=== PATIENT | male | born 1940 | race Caucasian/White ===

== ENCOUNTER 2023-03-08 02:34 | Outpatient (CLI) | payer MEDICARE, OTHER, SELFPAY ==
[2023-03-08] MEDS: Barium Sulfate 2% W/V-Creamy Vanilla Smoothie 450 ML BTL 950 ML PO (09:27)
[2023-03-08 09:30] LABS: Abs Immature Grans 0.02 10^3/uL (0.0-0.06); Absolute Basophil Count 0.03 10^3/uL (0.0-0.2); Absolute Eosinophil Count 0.14 10^3/uL (0.0-0.7); Absolute Lymphocyte Count 1.05 10^3/uL (1.2-3.4); Absolute Monocyte Count 0.47 10^3/uL (0.1-0.8); Absolute Neutrophil Count 2.92 10^3/uL (1.2-6.7); Basophils % 0.6; HCT 42.1 % (40.0-50.0); HGB 14.1 g/dL (13.5-17.5); Immature Grans % 0.4; Lymphocytes % 22.7; MCH 32.1 pg (27.0-33.0); MCHC 33.5 % (32.0-36.0); MCV 96 fL (80-95); MPV 10.1 fL (8.0-11.0); Monocytes % 10.2; Neutrophils % 63.1; Platelet Count 151 10^3/uL (130-400); RBC 4.39 10^6/uL (4.36-5.78); RDW 12.5 % (11.8-14.1); RDW-SD 44.9 fL; WBC 4.63 10^3/uL (4.4-10.8)
[2023-03-08 09:53] LABS: ALT 68 U/L (16-63); AST 38 U/L (15-37); Albumin 3.1 g/dL (3.4-5.0); Alkaline Phosphatase 407 U/L (46-116); Anion Gap 8.3 mmol/L (3-11); BUN 6 mg/dL (7-18); Bilirubin, Total 0.7 mg/dL (0.2-1.0); CO2 28.7 mmol/L (21.0-32.0); CREATININE 1.1 mg/dL (0.70-1.30); Chloride 104 mmol/L (98-107); Estimated GFR 67.02 (mL/min/1.73m2); FREE T4 1.74 ng/dL (0.76-1.46); Glucose 269 mg/dL (74-106); Potassium 3.6 mmol/L (3.5-5.1); Sodium 141 mmol/L (136-145)
[2023-03-08] MEDS: Normal Saline - Diluent 50 ML VIAL IJ (11:19)
[2023-03-08] MEDS: Omnipaque 350 MG/ML 500 ML BTL-Imaging package IJ (11:20)
--- NOTE | 2023-03-08 11:25 | DI.CT_ITS ---
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 TECHNIQUE: Imaging Protocol: Axial computed tomography images with coronal and sagittal reformatted images were created and reviewed CONTRAST MATERIAL: Intravenous: Omnipaque 350 Contrast volume:100 ml Oral: yes / MR MRI ABDOMEN WWO from 01/02/2023 FINDINGS: CHEST: Tracheobronchial tree: Patent where visualized. Pulmonary parenchyma: No consolidation or infiltrate. New area of perivascular thickening in the rig ht middle lobe. Scattered small calcified and noncalcified nodules, stable. Pleura: No effusion or pneumothorax. Lymph nodes: Small calcified nodes in the right hilum. Aorta: Thoracic portion non-dilated. Heart: Normal size. Mild coronary artery calcifications. Bones: bones appear osteopenic. Syndesmophyte formation. No lytic or blastic lesions.No compressio n fractures. ABDOMEN: Liver: Enlarged. Nodular contour. Low-density mass near dome of liver 3.5 cm, stable. Multiple ot her tiny foci enhancement throughout the liver. Gallbladder and biliary tract: Status post cholecystectomy. No radiodense calculus or dilation. Pancreas: Markedly dilated pancreatic duct. Calcifications in head of pancreas. Spleen: Unremarkable. Kidneys: Normal size, contour and axis. Few small bilateral stones. Multiple cysts. No obstructive uropathy. No suspicious masses seen. Adrenal glands: No masses seen. Aorta: Abdominal portion non-dilated. Lymph nodes: Stable portacaval node. Multiple tiny mesenteric lymph nodes. Soft tissues: Unremarkable. PELVIS: Bladder: Nearly empty. No gross wall thickening. Bowel: No obstruction or bowel wall thickening. Diverticulosis descending and sigmoid. Large quanti ty of stool. Peritoneal cavity: Small amount of ascites seen around the liver. Multiple soft tissue densities see n in right paracolic gutter, along the cecum and ascending colon. Nodule seen at the inferior border of the liver, adjacent to a renal cyst. Other peritoneal nodules seen in the pelvis, above the leve l of the seminal vesicles as well as adjacent to the sigmoid colon. Bones: Bones appear osteopenic. Degenerative changes. No fracture, lytic or blastic lesion. Reproductive organs: Enlarged prostate IMPRESSION: Chest: New area of perivascular thickening in the right middle lobe potentially metastatic lesion. Other tiny calcified and noncalcified nodules likely granulomas. Abdomen: Innumerable hypervascular liver lesions. Stable appearance of lesion near dome of liver. Multiple peritoneal implant seen along right paracolic gutter is well as in low pelvis. Multiple mildly enlarged mesenteric lymph nodes. RADIATION DOSE DELIVERED: 1,631.32mGy.cm Total DLP DATA REPOSITORY: All CT scans at this facility are submitted to the National Radiology Data Registry (NRDR) Dose Index Registry (DIR) with the [employer] ([employer]). RADIATION OPTIMIZATION: All CT scans at this facility use at least one of these dose optimization te chniques: automated exposure control; mA and/or kV adjustment per patient size (includes targeted exa ms where dose is matched to clinical indication); or iterative reconstruction.
[2023-03-09 10:19] LABS: AFP Tumor Marker 51.5 ng/mL (<8.1)
== END 2023-03-08 02:54 ==
LOC: DI 02:35
PROVIDERS: PCP Family Medicine; Visit Provider Internal Medicine Hematology & Oncology
DX: Z79.899 Other long term (current) drug therapy (principal); C22.0 Liver cell carcinoma
CPT/HCPCS: 74177; 80053; 71260; 82105; 84439; 84443; 85025

== ENCOUNTER 2023-03-16 11:59 | Outpatient (CLI) | payer MEDICARE, OTHER, SELFPAY ==
[2023-03-16 11:57] LABS: Abs Immature Grans 0.02 10^3/uL (0.0-0.06); Absolute Basophil Count 0.01 10^3/uL (0.0-0.2); Absolute Eosinophil Count 0.08 10^3/uL (0.0-0.7); Absolute Lymphocyte Count 1.01 10^3/uL (1.2-3.4); Absolute Monocyte Count 0.37 10^3/uL (0.1-0.8); Absolute Neutrophil Count 3.11 10^3/uL (1.2-6.7); Basophils % 0.2; Eosinophils % 1.7; HCT 39.9 % (40.0-50.0); HGB 13.2 g/dL (13.5-17.5); Immature Grans % 0.4; MCHC 33.1 % (32.0-36.0); MCV 97 fL (80-95); MPV 9.4 fL (8.0-11.0); Neutrophils % 67.7; Platelet Count 168 10^3/uL (130-400); RBC 4.12 10^6/uL (4.36-5.78); RDW 12.6 % (11.8-14.1); RDW-SD 44.8 fL
[2023-03-16 12:22] LABS: ALT 67 U/L (16-63); AST 50 U/L (15-37); Albumin 3.2 g/dL (3.4-5.0); Alkaline Phosphatase 439 U/L (46-116); Anion Gap 4.5 mmol/L (3-11); BUN 6 mg/dL (7-18); Bilirubin, Total 0.6 mg/dL (0.2-1.0); CO2 30.5 mmol/L (21.0-32.0); CREATININE 1.1 mg/dL (0.70-1.30); Calcium 9.5 mg/dL (8.5-10.1); Chloride 102 mmol/L (98-107); Estimated GFR 67.02 (mL/min/1.73m2); FREE T4 1.58 ng/dL (0.76-1.46); Glucose 494 mg/dL (74-106); Potassium 4.2 mmol/L (3.5-5.1); Sodium 137 mmol/L (136-145); TSH 3.23 uIU/mL (0.36-3.74); Total Protein 7.9 g/dL (6.4-8.2)
[2023-03-19 09:18] LABS: AFP Tumor Marker 81.4 ng/mL (<8.1)
== END 2023-03-16 12:00 | disposition home or self-care (01) ==
LOC: LBO 12:00
PROVIDERS: PCP Family Medicine; Visit Provider Internal Medicine Hematology & Oncology
DX: C22.0 Liver cell carcinoma (principal); Z79.899 Other long term (current) drug therapy
CPT/HCPCS: 36415; 80053; 82105; 84439; 84443; 85025

== ENCOUNTER 2023-03-27 20:09 | Emergency (ER) | payer MEDICARE, OTHER, SELFPAY ==
[2023-03-27 20:13] VITALS: BP 138/66; PULSE 68; RESP 16; TEMP 36.9; O2SAT 99
--- NOTE | 2023-03-27 20:15 | ED.GENADUL_ITS ---
Discharge Plan Disposition Patient Disposition: Home Condition: Stable Discharge Details Clinical Impression: Second degree burn of left foot Primary Care Provider: Oleg Rios ED Provider: Ester Wilkerson Home Meds and New Rx's Prescriptions: Continued CINNAMON 1000 MG PO DAILY diltiazem HCl [Cartia XT] 120 MG capsule,extended release 24hr 120 mg PO BID B 12 1,000 mcg DAILY Claritin-D 24 Hour 1 EACH tablet extended release 24 hr 1 ea PO cholecalciferol (vitamin D3) [D3 DOTS] 2,000 UNIT tablet 2,000 unit PO levothyroxine [Synthroid] 137 MCG tablet 137 mcg PO DAILY triamcinolone acetonide 15 GM cream 1 Topical PRN PRN simvastatin [Zocor] 20 MG tablet 20 mg PO DAILY metformin [Glucophage] 1,000 MG tablet 1,000 mg PO BID Centrum Silver 1 EACH tablet 1 tab PO DAILY omega 9-zag-dua-fish oil 1 EACH capsule 1,000 mg PO DAILY chlorpheniramine maleate 4 MG tablet 8 mg PO DAILY pseudoephedrine HCl [Sudafed 12 Hour] 120 MG tablet extended release 120 mg PO DAILY aspirin 325 MG tablet 325 mg PO DAILY Discharge Instructions Instructions: Second-Degree Burn (ED), Acute Wound Care (ED) Additional Instructions: Change your left foot dressing 1-2 times daily. Allow the dressing to come off when you run it under water in the bath or shower and then pat the area dry and reapply bacitracin and a nonadherent dressing. Keep your left foot elevated as much as possible. Take Tylenol as needed and directed for pain. Call your oncology team tomorrow to determine if it is still okay to proceed with your chemotherapy treatment tomorrow. You have been placed on care management's list to arrange for a follow-up appointment with your primary care doctor's office within the next few days for reevaluation. Return immediately to the emergency department if you develop any worsening or new concerning symptoms such as fever, increased pain, redness and swelling. Discharge Data Discharge Physician: Ester Wilkerson Medical Decision Making 82-year-old male with a history of atrial fibrillation with history of cardio frequency ablation with no anticoagulation, type 2 diabetes, bladder and liver c ancer, hypothyroidism presents for left foot burn sustained with hot soup 2 days ago. Patient has been taking care of her foot quite well. He appears comfortable and nontoxic. He has multiple circular garcia to the left dorsal foot which appear a combination of first and second-degree garcia. The majority at this time appears that most blisters have opened except for tiny 1 to 2 mm blisters within the most proximal burn and 1 intact blister noted on the dorsum of the left great foot. Patient is unsure of his tetanus so we will update with a Boostrix. He does have a history of diabetes so he was advised to continue to watch his sugars closely. Will unroofed the blister on the dorsum of his left foot and apply bacitracin and nonadherent dressing. Patient is advised on the importance of proper wound care with bacitracin and nonadherent dressing 1-2 times a day and to keep the foot elevated is much as possible. We will place patient on care management list to arrange for a follow-up appoint with his primary care doctor within the next week for reevaluation. He states he is scheduled to start chemotherapy tomorrow for liver cancer so he was advised to call his oncologist to determine if this is okay to proceed as he has an open wound and would want to prevent any development of a bacterial infection in the setting of immunosuppression. Usual and customary return precautions given prior to discharge. Medical Records Medical records reviewed: Yes I reviewed the patient's medical records. HPI General Mode of arrival: ambulatory . Date/Time Provider Initiated Documentation: 03/27/23 20:15 . Limitations to Documentation: no limitations . Information obtained by: patient . HPI Narrative: Pt is an 82yo M who presents to the ED with a complaint burn to his left foot that occurred 2 days ago while carrying hot soup. Patient states he was carrying the soup in the kitchen when the handle slipped and it poured onto the top of his left foot while wearing a sock. He states he was able to remove it immediately and placed his left foot under cold water. He states since then blisters have formed but the majority of them have popped. He states he has been trying to keep the leg elevated is much as possible and applying Vaseline and dressings. He states he has been wearing sandals which have 2 Velcro straps on top of the area. He states he did travel to [place] yesterday and drove 8 hours in a car but tried to keep it elevated is much as possible. He denies any left calf pain or fever. He is unsure of his tetanus status. Related Data Home Medications Medication Instructions Recorded Confirmed levothyroxine 137 mcg tablet 137 mcg PO DAILY 03/28/13 03/27/23 (Synthroid) metformin 1,000 mg tablet 1,000 mg PO BID 03/28/13 03/27/23 (Glucophage) qlknyjer-sqt-ekddf acid 0.4 1 tab PO DAILY 03/28/13 03/27/23 mg-lycopene 300 mcg-lutein 250 mcg tablet (Centrum Silver) omega 7-nwm-xdk-fish oil 300 1,000 mg PO DAILY 03/28/13 03/27/23 mg-1,000 mg capsule simvastatin 20 mg tablet (Zocor) 20 mg PO DAILY 03/28/13 03/27/23 triamcinolone acetonide 0.1 % 1 topical PRN PRN 03/28/13 03/28/13 topical cream Cinnamon 1000 Mg PO DAILY 04/02/13 aspirin 325 mg tablet 325 mg PO DAILY 06/05/13 03/27/23 chlorpheniramine maleate 4 mg 8 mg PO DAILY 06/05/13 03/27/23 tablet pseudoephedrine HCl 120 mg 120 mg PO DAILY 06/05/13 03/27/23 tablet,extended release (Sudafed 12 Hour) diltiazem HCl 120 mg 120 mg PO BID 03/04/14 03/27/23 capsule,extended release 24 hr (Cartia XT) B 12 1,000 mcg DAILY 10/22/15 cholecalciferol (vitamin D3) 50 2,000 unit PO 10/22/15 mcg (2,000 unit) tablet (D3 DOTS) loratadine-pseudoephedrine ER 10 1 ea PO 10/22/15 mg-240 mg tablet,extended [id number] (Claritin-D 24 Hour) Allergies Allergy/AdvReac Type Severity Reaction Status Date / Time Cephalosporins Allergy Intermediate Skin Rash Unverified 03/27/23 20:44 codeine [Codeine] Allergy Mild Nausea Unverified 11/17/15 08:11 hydromorphone HCl Allergy Mild Unverified 03/27/23 20:44 [From Dilaudid] Sulfa (Sulfonamide Allergy Mild Skin Rash Unverified 03/27/23 20:44 Antibiotics) General Stated Complaint: Burn NAFISA: 4 Review of Systems All systems reviewed & are unremarkable except as noted in HPI and below Constitutional Constitutional: Reports as per HPI, Denies chills and Denies fever(s) Eyes Eyes: Denies blurry vision ENT Ears, Nose, Mouth, and Throat: Denies dizziness, Denies sore throat and Denies throat swelling Cardiovascular Cardiovascular: Denies chest pain and Denies dyspnea Respiratory Respiratory: Denies cough and Denies dyspnea Gastrointestinal Gastrointestinal: Denies abdominal pain, Denies diarrhea and Denies vomiting Genitourinary Genitourinary: Denies hematuria and Denies dysuria Musculoskeletal Musculoskeletal: Denies back pain and Denies numbness Integumentary/Breasts Skin/Breast: Denies lesions and Denies rash Comments: burn left foot Neurologic Neurologic: Denies dizziness, Denies localized weakness and Denies numbness Allergic/Immunologic Allergic/Immunologic: Denies throat swelling PFSH All Active Problems (Updated 03/27/23 @ 21:43 by Ester Wilkerson DO) Second degree burn of left foot (Acute) Medical History (Updated 03/27/23 @ 21:43 by Ester Wilkerson DO) Atrial fibrillation Bladder cancer Hypothyroidism Kidney stones Liver cancer Pancreatitis s/p cholecystitis/cholecystectomy with stone in pancreatic duct Type 2 diabetes mellitus Surgical History (Updated 03/27/23 @ 20:52 by Ester Wilkerson DO) History of appendectomy History of bilateral inguinal hernia repair History of bladder surgery bladder ablation History of cardiac radiofrequency ablation for atrial fibrillation History of carpal tunnel release History of left knee replacement History of repair of rotator cuff Bilateral History of tonsillectomy Social History Smoking/Tobacco Use Status: Former Tobacco Use Smoking risk assessment performed?: Yes Alcohol Intake: never Drug use: Never Do you feel safe at home: Yes Do you feel safe in your relationship?: Yes Exam Const General: cooperative and no acute distress Orientation: alert, awake and oriented x3 HENMT Head: normal to inspection Mouth: oral mucosae normal Eyes General: appearance normal, both eyes and all related structures Neck Neck: normal visual inspection Resp Effort & Inspection: normal respiratory effort and able to speak in complete sentences Cardio Rate: regular rate Skin General skin exam: no rashes or lesions noted Neuro General: patient alert, patient awake and patient oriented x3 Motor: muscle tone normal throughout Extrem General: full ROM Ankle/foot/toe images: 1. Several circular areas of erythema, ranging in intensity located on the dorsum of the left foot. There are small 2 to 3 mm blisters noted on the most proximal burn but the majority of this area is flat without blisters. The center circular area is more erythematous with no blisters. There is a 4 x 4 millimeter intact blister noted on the dorsum of the base of the left great toe. There is minimal serous discharge noted from the wounds. There is no patch drainage. There is no significant cellulitis or fluctuance. Psych Appearance: grossly normal Affect: normal affect Procedures Other Description: Vaseline over top of the left foot was removed gently and the area was cleaned with medical soap. The blister on the dorsum of the base of the left great toe was opened with an 11 blade and removed with scissors. The entire left foot was covered with bacitracin and a nonadherent dressing.
--- NOTE | 2023-03-29 08:29 | NUR.NOTE ---
Nursing Note: PCP: Dr. Rios, [facility] [phone]. Referral and visit information sent to PCP for follow up.
--- NOTE | 2023-03-29 08:34 | NUR.NOTE ---
Nursing Note: [facility] fax [phone]
--- NOTE | 2023-03-29 18:18 | NUR.NOTE ---
Nursing Note: pt called to request a brace/boot for his burned foot. pt was informed if he felt he needed something he was not provided with at his prior visit, he could revisit the ED, [facility], or his PCP to request it
== END 2023-03-27 22:30 | disposition home or self-care (01) ==
PROVIDERS: Emergency Provider Physician Assistant; PCP Family Medicine
DX: T25.222A Burn of second degree of left foot, initial encounter; X10.1XXA Contact with hot food, initial encounter; Y92.000 Kitchen of unspecified non-institutional (private) residence as the place of occurrence of the external cause; E11.9 Type 2 diabetes mellitus without complications; C67.9 Malignant neoplasm of bladder, unspecified; C22.9 Malignant neoplasm of liver, not specified as primary or secondary
CPT/HCPCS: 90471; 99284; 99283

== ENCOUNTER 2023-03-28 12:30 | Outpatient (CLI) | payer MEDICARE, OTHER, SELFPAY ==
[2023-03-28 12:00] LABS: Abs Immature Grans 0.01 10^3/uL (0.0-0.06); Absolute Basophil Count 0.02 10^3/uL (0.0-0.2); Absolute Eosinophil Count 0.07 10^3/uL (0.0-0.7); Absolute Monocyte Count 0.22 10^3/uL (0.1-0.8); Absolute Neutrophil Count 1.87 10^3/uL (1.2-6.7); Basophils % 0.6; Eosinophils % 2.3; HCT 37.5 % (40.0-50.0); HGB 12.4 g/dL (13.5-17.5); Immature Grans % 0.3; Lymphocytes % 29.1; MCH 31.9 pg (27.0-33.0); MCHC 33.1 % (32.0-36.0); MCV 96 fL (80-95); MPV 10.2 fL (8.0-11.0); Monocytes % 7.1; Neutrophils % 60.6; Platelet Count 128 10^3/uL (130-400); RBC 3.89 10^6/uL (4.36-5.78); RDW 12.9 % (11.8-14.1); RDW-SD 45.7 fL; WBC 3.09 10^3/uL (4.4-10.8)
[2023-03-28 12:26] LABS: ALT 63 U/L (16-63); AST 69 U/L (15-37); Albumin 2.8 g/dL (3.4-5.0); Alkaline Phosphatase 328 U/L (46-116); Anion Gap 7.5 mmol/L (3-11); BUN 8 mg/dL (7-18); Bilirubin, Total 0.7 mg/dL (0.2-1.0); CO2 27.5 mmol/L (21.0-32.0); CREATININE 0.9 mg/dL (0.70-1.30); Calcium 8.6 mg/dL (8.5-10.1); Chloride 104 mmol/L (98-107); Estimated GFR 85.27 (mL/min/1.73m2); Glucose 306 mg/dL (74-106); Potassium 4.1 mmol/L (3.5-5.1); Sodium 139 mmol/L (136-145); TSH 1.62 uIU/mL (0.36-3.74)
[2023-03-30 08:16] LABS: AFP Tumor Marker 89.2 ng/mL (<8.1)
== END 2023-03-28 12:31 | disposition home or self-care (01) ==
LOC: LBO 12:30
PROVIDERS: PCP Family Medicine; Visit Provider Internal Medicine Hematology & Oncology
DX: C22.0 Liver cell carcinoma (principal); Z79.899 Other long term (current) drug therapy
CPT/HCPCS: 36415; 80053; 82105; 84439; 84443; 85025

== ENCOUNTER 2023-03-29 18:39 | Emergency (ER) | payer MEDICARE, OTHER, SELFPAY ==
[2023-03-29 18:46] VITALS: BP 137/71; PULSE 69; RESP 20; TEMP 36.2; O2SAT 100
--- NOTE | 2023-03-29 21:48 | ED.GENADUL_ITS ---
Discharge Plan Discharge Details Chief Complaint: Orthopedic Primary Care Provider: Oleg Rios ED Provider: Lanie Chu Home Meds and New Rx's Prescriptions: No Action CINNAMON 1000 MG PO DAILY diltiazem HCl [Cartia XT] 120 MG capsule,extended release 24hr 120 mg PO BID B 12 1,000 mcg DAILY Claritin-D 24 Hour 1 EACH tablet extended release 24 hr 1 ea PO cholecalciferol (vitamin D3) [D3 DOTS] 2,000 UNIT tablet 2,000 unit PO levothyroxine [Synthroid] 137 MCG tablet 137 mcg PO DAILY triamcinolone acetonide 15 GM cream 1 Topical PRN PRN simvastatin [Zocor] 20 MG tablet 20 mg PO DAILY metformin [Glucophage] 1,000 MG tablet 1,000 mg PO BID Centrum Silver 1 EACH tablet 1 tab PO DAILY omega 0-lmk-jps-fish oil 1 EACH capsule 1,000 mg PO DAILY chlorpheniramine maleate 4 MG tablet 8 mg PO DAILY pseudoephedrine HCl [Sudafed 12 Hour] 120 MG tablet extended release 120 mg PO DAILY aspirin 325 MG tablet 325 mg PO DAILY Medical Decision Making Patient presents for postoperative shoe in the presence of a recent partial- thickness burn to his toe with dressing changes prior to arrival, placed an extra-large postoperative boot, ambulatory with steady gait No signs or symptoms consistent with infection Return precautions discussed and patient expressed understanding HPI General Date/Time Provider Initiated Documentation: 03/29/23 18:41 . HPI Narrative: This 82-year-old gentleman with history of type 2 diabetes, pancreatitis, hypothyroidism, bladder cancer atrial fibrillation presents post burn partial- thickness burn which was evaluated on 03/27/2023. He had a dressing change today by his PCP at approximately 2:00 but is having difficulties walking as his footwear is not accommodating the dressing. He is requesting only a postope rative shoe. He denies any pain complaints, fever, chills and was told that the burn site looked great by his PCP just prior to his assessment in the emergency department. Related Data Home Medications Medication Instructions Recorded Confirmed levothyroxine 137 mcg tablet 137 mcg PO DAILY 03/28/13 03/27/23 (Synthroid) metformin 1,000 mg tablet 1,000 mg PO BID 03/28/13 03/27/23 (Glucophage) bgaagiok-qlc-xwnkn acid 0.4 1 tab PO DAILY 03/28/13 03/27/23 mg-lycopene 300 mcg-lutein 250 mcg tablet (Centrum Silver) omega 9-emb-uuf-fish oil 300 1,000 mg PO DAILY 03/28/13 03/27/23 mg-1,000 mg capsule simvastatin 20 mg tablet (Zocor) 20 mg PO DAILY 03/28/13 03/27/23 triamcinolone acetonide 0.1 % 1 topical PRN PRN 03/28/13 03/28/13 topical cream Cinnamon 1000 Mg PO DAILY 04/02/13 aspirin 325 mg tablet 325 mg PO DAILY 06/05/13 03/27/23 chlorpheniramine maleate 4 mg 8 mg PO DAILY 06/05/13 03/27/23 tablet pseudoephedrine HCl 120 mg 120 mg PO DAILY 06/05/13 03/27/23 tablet,extended release (Sudafed 12 Hour) diltiazem HCl 120 mg 120 mg PO BID 03/04/14 03/27/23 capsule,extended release 24 hr (Cartia XT) B 12 1,000 mcg DAILY 10/22/15 cholecalciferol (vitamin D3) 50 2,000 unit PO 10/22/15 mcg (2,000 unit) tablet (D3 DOTS) loratadine-pseudoephedrine ER 10 1 ea PO 10/22/15 mg-240 mg tablet,extended [id number] (Claritin-D 24 Hour) Allergies Allergy/AdvReac Type Severity Reaction Status Date / Time Cephalosporins Allergy Intermediate Skin Rash Unverified 03/27/23 20:44 codeine [Codeine] Allergy Mild Nausea Unverified 11/17/15 08:11 hydromorphone HCl Allergy Mild Unverified 03/27/23 20:44 [From Dilaudid] Sulfa (Sulfonamide Allergy Mild Skin Rash Unverified 03/27/23 20:44 Antibiotics) General Stated Complaint: Orthopedic NAFISA: 4 PFSH All Active Problems (Updated 03/27/23 @ 21:43 by Ester Wilkerson DO) Second degree burn of left foot (Acute) Medical History (Updated 03/27/23 @ 21:43 by Ester Wilkerson DO) Atrial fibrillation Bladder cancer Hypothyroidism Kidney stones Liver cancer Pancreatitis s/p cholecystitis/cholecystectomy with stone in pancreatic duct Type 2 diabetes mellitus Surgical History (Updated 03/27/23 @ 20:52 by Ester Wilkerson DO) History of appendectomy History of bilateral inguinal hernia repair History of bladder surgery bladder ablation History of cardiac radiofrequency ablation for atrial fibrillation History of carpal tunnel release History of left knee replacement History of repair of rotator cuff Bilateral History of tonsillectomy Social History Smoking/Tobacco Use Status: Former Tobacco Use Smoking risk assessment performed?: Yes Alcohol Intake: never Drug use: Never Do you feel safe at home: Yes Do you feel safe in your relationship?: Yes Exam Narrative Exam Narrative: Left foot with sock in place no significant drainage, neurologically intact Course Vital Signs Vital signs: Vital Signs Temperature 36.2 C L 03/29/23 18:46 Pulse 69 03/29/23 18:46 Respiratory Rate 20 03/29/23 18:46 Blood Pressure 137/71 03/29/23 18:46 Pulse Oximetry 100 03/29/23 18:46 Temperature 36.2 C L 03/29/23 18:46 Temperature Source Tympanic 03/29/23 18:46 Pulse 69 03/29/23 18:46 Respiratory Rate 20 03/29/23 18:46 Respiratory Effort Normal 03/29/23 18:49 Blood Pressure 137/71 03/29/23 18:46 Blood Pressure Position Sitting 03/29/23 18:46 Pulse Oximetry 100 03/29/23 18:46 Oxygen Delivery Method Room Air 03/29/23 18:46 Oxygen Flow Rate 0 03/29/23 18:46
== END 2023-03-29 19:05 | disposition home or self-care (01) ==
PROVIDERS: Emergency Provider Physician Assistant; PCP Family Medicine
DX: T25.222D Burn of second degree of left foot, subsequent encounter (principal); E11.9 Type 2 diabetes mellitus without complications; X58.XXXD Exposure to other specified factors, subsequent encounter
CPT/HCPCS: 99281; 99282

== ENCOUNTER 2023-03-31 21:10 | Emergency (ER) | payer MEDICARE, OTHER, SELFPAY ==
[2023-03-31 21:15] VITALS: BP 143/72; PULSE 65; RESP 16; TEMP 36.5; O2SAT 99
--- NOTE | 2023-03-31 21:57 | W.ED.GENAD ---
Discharge Plan Disposition Patient Disposition: Home Condition: Stable Discharge Details Clinical Impression: Cellulitis of left foot, Second degree burn of left foot Primary Care Provider: Oleg Rios ED Provider: Romelia Queen Home Meds and New Rx's Prescriptions: New clindamycin HCl 150 mg capsule 450 mg PO TID 7 Days Qty: 63 0RF No Action CINNAMON 1000 MG PO DAILY diltiazem HCl [Cartia XT] 120 MG capsule,extended release 24hr 120 mg PO BID B 12 1,000 mcg DAILY Claritin-D 24 Hour 1 EACH tablet extended release 24 hr 1 ea PO cholecalciferol (vitamin D3) [D3 DOTS] 2,000 UNIT tablet 2,000 unit PO levothyroxine [Synthroid] 137 MCG tablet 137 mcg PO DAILY triamcinolone acetonide 15 GM cream 1 Topical PRN PRN simvastatin [Zocor] 20 MG tablet 20 mg PO DAILY metformin [Glucophage] 1,000 MG tablet 1,000 mg PO BID Centrum Silver 1 EACH tablet 1 tab PO DAILY omega 4-sdd-zyz-fish oil 1 EACH capsule 1,000 mg PO DAILY chlorpheniramine maleate 4 MG tablet 8 mg PO DAILY pseudoephedrine HCl [Sudafed 12 Hour] 120 MG tablet extended release 120 mg PO DAILY aspirin 325 MG tablet 325 mg PO DAILY Discharge Instructions Instructions: Cellulitis (ED), Second-Degree Burn (ED) Additional Instructions: Please take the antibiotic with yogurt or probiotic as directed 3 times a day. Please follow-up with the burn clinic within the next week. Take the pain medications as directed with food. No driving or operating heavy machinery while taking medications. [facility] Critical [facility] 5.0(2)?? Emergency care service [place], [place] ? Opens 8?AM Mon [facility] [phone]: [place] [address] These are 2 referrals for the burn center at [facility] and also [facility] wound clinic. Please call to make an appointment. Follow up with primary care provider in 3-5 days. Return to ED sooner if any worsening or concerns. Increase oral fluids. Referrals: Oleg Rios [Primary Care Provider] - 3 days Medical Decision Making Patient presents for third visit for burn to his left foot which occurred after spilling some hot soup onto it. He was seen on the ninth initially. He presents tonight with some increased pain, increased redness and swelling which has began to start up his left leg. He has been applying topical bacitracin keeping it covered with a nonadherent bandage and wearing a postop shoe. He denies any fever chills. Does appear to be possibly cellulitic or beginning to have an infection, questionable red streaks going up the anterior brennan and leg is warm. Will place patient on oral clindamycin as he is allergic to cephalosporins and sulfa and referred to the burn center. Instructed on home care and follow-up with PCP and the burn center verbalizes understanding. This text was generated using [employer]ko[employer] system, please disregard any oddities of phrase or misspellings. Medical Records Medical records reviewed: Yes I reviewed the patient's medical records. HPI General Mode of arrival: ambulatory. Date/Time Provider Initiated Documentation: 03/31/23 21:12. Limitations to Documentation: no limitations. Information obtained by: patient, RN notes reviewed and old records reviewed. HPI Narrative: Patient presents for third visit for burn to his left foot which occurred after spilling some hot soup onto it. He was seen on the ninth initially. He presents tonight with some increased pain, increased redness and swelling which has began to start up his left leg. He has been applying topical bacitracin keeping it covered with a nonadherent bandage and wearing a postop shoe. He denies any fever chills. Related Data Home Medications Medication Instructions Recorded Confirmed levothyroxine 137 mcg tablet 137 mcg PO DAILY 03/28/13 03/31/23 (Synthroid) metformin 1,000 mg tablet 1,000 mg PO BID 03/28/13 03/31/23 (Glucophage) sknklyhs-ygb-chzbe acid 0.4 1 tab PO DAILY 03/28/13 03/31/23 mg-lycopene 300 mcg-lutein 250 mcg tablet (Centrum Silver) omega 9-och-hlw-fish oil 300 1,000 mg PO DAILY 03/28/13 03/31/23 mg-1,000 mg capsule simvastatin 20 mg tablet (Zocor) 20 mg PO DAILY 03/28/13 03/27/23 triamcinolone acetonide 0.1 % 1 topical PRN PRN 03/28/13 03/28/13 topical cream Cinnamon 1000 Mg PO DAILY 04/02/13 aspirin 325 mg tablet 325 mg PO DAILY 06/05/13 03/31/23 chlorpheniramine maleate 4 mg 8 mg PO DAILY 06/05/13 03/31/23 tablet pseudoephedrine HCl 120 mg 120 mg PO DAILY 06/05/13 03/31/23 tablet,extended release (Sudafed 12 Hour) diltiazem HCl 120 mg 120 mg PO BID 03/04/14 03/31/23 capsule,extended release 24 hr (Cartia XT) B 12 1,000 mcg DAILY 10/22/15 03/31/23 cholecalciferol (vitamin D3) 50 2,000 unit PO 10/22/15 mcg (2,000 unit) tablet (D3 DOTS) loratadine-pseudoephedrine ER 10 1 ea PO 10/22/15 mg-240 mg tablet,extended [id number] (Claritin-D 24 Hour) clindamycin HCl 150 mg capsule 450 mg PO TID 7 days #63 [facility] 03/31/23 Previous Rx's Medication Instructions Recorded clindamycin HCl 150 mg capsule 450 mg PO TID 7 days #63 caps 03/31/23 Allergies Allergy/AdvReac Type Severity Reaction Status Date / Time Cephalosporins Allergy Intermediate Skin Rash Unverified 03/31/23 21:21 codeine [Codeine] Allergy Mild Nausea Unverified 03/31/23 21:21 hydromorphone HCl Allergy Mild Unverified 03/31/23 21:21 [From Dilaudid] Sulfa (Sulfonamide Allergy Mild Skin Rash Unverified 03/31/23 21:21 Antibiotics) General Stated Complaint: Burn NAFISA: 3 Review of Systems All systems reviewed & are unremarkable except as noted in HPI and below Integumentary/Breasts Skin/Breast: Reports as per HPI, Reports erythema, Reports skin pain, Reports skin swelling and Reports wounds PFSH All Active Problems (Updated 03/31/23 @ 22:27 by Romelia Queen NP) Second degree burn of left foot (Acute) Cellulitis of left foot (Acute) Medical History Atrial fibrillation Bladder cancer Hypothyroidism Kidney stones Liver cancer Pancreatitis s/p cholecystitis/cholecystectomy with stone in pancreatic duct Type 2 diabetes mellitus Surgical History History of appendectomy History of bilateral inguinal hernia repair History of bladder surgery bladder ablation History of cardiac radiofrequency ablation for atrial fibrillation History of carpal tunnel release History of left knee replacement History of repair of rotator cuff Bilateral History of tonsillectomy Social History Smoking/Tobacco Use Status: Former Tobacco Use Smoking risk assessment performed?: Yes Alcohol Intake: never Drug use: Never Do you feel safe at home: Yes Do you feel safe in your relationship?: Yes Exam Extrem Upper/lower leg/hip images: 1. Questionable red streak Ankle/foot/toe images: 1. Erythema 2. 2nd degree burn Course Vital Signs Vital signs: Vital Signs Temperature 36.5 C 03/31/23 21:15 Pulse 65 03/31/23 21:15 Respiratory Rate 16 03/31/23 21:15 Blood Pressure 143/72 H 03/31/23 21:15 Pulse Oximetry 99 03/31/23 21:15 Temperature 36.5 C 03/31/23 21:15 Temperature Source Temporal Artery Scan 03/31/23 21:15 Pulse 65 03/31/23 21:15 Respiratory Rate 16 03/31/23 21:15 Respiratory Effort Normal 03/31/23 21:15 Blood Pressure 143/72 H 03/31/23 21:15 Blood Pressure Position Sitting 03/31/23 21:15 Pulse Oximetry 99 03/31/23 21:15 Oxygen Delivery Method Room Air 03/31/23 21:15 Oxygen Flow Rate 0 03/31/23 21:15 Pain Level 9 03/31/23 21:15
[2023-03-31] MEDS: Clindamycin 150 MG CAP 450 MG PO (22:28)
[2023-03-31] MEDS: Clindamycin 150 MG CAP, 12 CAPS/BTL 450 MG PO (22:28)
[2023-03-31] MEDS: oxyCODONE 5 MG TAB PO (22:29)
== END 2023-03-31 22:43 | disposition home or self-care (01) ==
PROVIDERS: Emergency Provider Registered Nurse Emergency; PCP Family Medicine
DX: T25.222D Burn of second degree of left foot, subsequent encounter (principal); L03.116 Cellulitis of left lower limb; T79.8XXD Other early complications of trauma, subsequent encounter; X12.XXXD Contact with other hot fluids, subsequent encounter
CPT/HCPCS: 99283; 99284

== ENCOUNTER 2023-04-20 08:07 | Outpatient (CLI) | payer MEDICARE, OTHER, SELFPAY ==
[2023-04-20 08:06] LABS: Abs Immature Grans 0.01 10^3/uL (0.0-0.06); Absolute Basophil Count 0.03 10^3/uL (0.0-0.2); Absolute Eosinophil Count 0.46 10^3/uL (0.0-0.7); Absolute Lymphocyte Count 1.09 10^3/uL (1.2-3.4); Absolute Monocyte Count 0.34 10^3/uL (0.1-0.8); Absolute Neutrophil Count 2.39 10^3/uL (1.2-6.7); Basophils % 0.7; Eosinophils % 10.6; HCT 38.9 % (40.0-50.0); HGB 12.7 g/dL (13.5-17.5); Immature Grans % 0.2; Lymphocytes % 25.2; MCH 31.3 pg (27.0-33.0); MCHC 32.6 % (32.0-36.0); MCV 96 fL (80-95); MPV 9.6 fL (8.0-11.0); Monocytes % 7.9; Neutrophils % 55.4; Platelet Count 141 10^3/uL (130-400); RBC 4.06 10^6/uL (4.36-5.78); RDW 13.5 % (11.8-14.1); RDW-SD 48.3 fL; WBC 4.32 10^3/uL (4.4-10.8)
[2023-04-20 09:06] LABS: ALT 101 U/L (16-63); AST 102 U/L (15-37); Albumin 2.8 g/dL (3.4-5.0); Alkaline Phosphatase 305 U/L (46-116); Anion Gap 7.4 mmol/L (3-11); BUN 9 mg/dL (7-18); Bilirubin, Total 0.8 mg/dL (0.2-1.0); CO2 26.6 mmol/L (21.0-32.0); CREATININE 0.9 mg/dL (0.70-1.30); Chloride 104 mmol/L (98-107); Estimated GFR 85.27 (mL/min/1.73m2); Glucose 186 mg/dL (74-106); Potassium 4.3 mmol/L (3.5-5.1); Sodium 138 mmol/L (136-145); TSH 2.58 uIU/mL (0.36-3.74); Total Protein 7.3 g/dL (6.4-8.2)
[2023-04-23 10:44] LABS: AFP Tumor Marker 107.5 ng/mL (<8.1)
== END 2023-04-20 08:08 | disposition home or self-care (01) ==
LOC: LBO 08:07
PROVIDERS: PCP Family Medicine; Visit Provider Internal Medicine Hematology & Oncology
DX: C22.0 Liver cell carcinoma (principal); Z79.899 Other long term (current) drug therapy
CPT/HCPCS: 36415; 80053; 82105; 84439; 84443; 85025

== ENCOUNTER 2023-04-27 02:08 | Outpatient (CLI) | payer MEDICARE, OTHER, SELFPAY ==
[2023-04-27 08:33] LABS: Abs Immature Grans 0.02 10^3/uL (0.0-0.06); Absolute Basophil Count 0.04 10^3/uL (0.0-0.2); Absolute Eosinophil Count 0.36 10^3/uL (0.0-0.7); Absolute Lymphocyte Count 1.33 10^3/uL (1.2-3.4); Absolute Monocyte Count 0.44 10^3/uL (0.1-0.8); Absolute Neutrophil Count 2.25 10^3/uL (1.2-6.7); Basophils % 0.9; Eosinophils % 8.1; HCT 38.6 % (40.0-50.0); HGB 13.1 g/dL (13.5-17.5); Immature Grans % 0.5; MCH 32.3 pg (27.0-33.0); MCHC 33.9 % (32.0-36.0); MCV 95 fL (80-95); MPV 9.9 fL (8.0-11.0); Monocytes % 9.9; Neutrophils % 50.6; Platelet Count 169 10^3/uL (130-400); RBC 4.06 10^6/uL (4.36-5.78); RDW 13.9 % (11.8-14.1); RDW-SD 49.1 fL; WBC 4.44 10^3/uL (4.4-10.8)
[2023-04-27 09:03] LABS: ALT 194 U/L (16-63); AST 182 U/L (15-37); Albumin 2.9 g/dL (3.4-5.0); Alkaline Phosphatase 363 U/L (46-116); BUN 8 mg/dL (7-18); CREATININE 0.9 mg/dL (0.70-1.30); Chloride 104 mmol/L (98-107); Estimated GFR 85.27 (mL/min/1.73m2); FREE T4 1.77 ng/dL (0.76-1.46); Glucose 140 mg/dL (74-106); Sodium 138 mmol/L (136-145); Total Protein 7.6 g/dL (6.4-8.2)
[2023-04-30 09:27] LABS: AFP Tumor Marker 102.9 ng/mL (<8.1)
== END 2023-04-27 02:09 | disposition home or self-care (01) ==
LOC: LBO 02:08
PROVIDERS: PCP Family Medicine; Visit Provider Internal Medicine Hematology & Oncology
DX: C22.0 Liver cell carcinoma (principal); Z79.899 Other long term (current) drug therapy
CPT/HCPCS: 36415; 80053; 82105; 84439; 84443; 85025

== ENCOUNTER 2023-04-30 04:53 | Outpatient (CLI) | payer MEDICARE, OTHER, SELFPAY ==
[2023-04-30 08:32] LABS: Abs Immature Grans 0.02 10^3/uL (0.0-0.06); Absolute Basophil Count 0.03 10^3/uL (0.0-0.2); Absolute Eosinophil Count 0.26 10^3/uL (0.0-0.7); Absolute Lymphocyte Count 1.13 10^3/uL (1.2-3.4); Absolute Monocyte Count 0.42 10^3/uL (0.1-0.8); Absolute Neutrophil Count 2.18 10^3/uL (1.2-6.7); Basophils % 0.7; Eosinophils % 6.4; HCT 39.5 % (40.0-50.0); HGB 13.1 g/dL (13.5-17.5); Immature Grans % 0.5; MCH 32.1 pg (27.0-33.0); MCHC 33.2 % (32.0-36.0); MCV 97 fL (80-95); MPV 9.5 fL (8.0-11.0); Monocytes % 10.4; Platelet Count 172 10^3/uL (130-400); RBC 4.08 10^6/uL (4.36-5.78); RDW 14.3 % (11.8-14.1); WBC 4.04 10^3/uL (4.4-10.8)
[2023-04-30 09:12] LABS: ALT 201 U/L (16-63); AST 172 U/L (15-37); Albumin 2.9 g/dL (3.4-5.0); Alkaline Phosphatase 354 U/L (46-116); Anion Gap 7.7 mmol/L (3-11); BUN 8 mg/dL (7-18); CO2 27.3 mmol/L (21.0-32.0); CREATININE 0.9 mg/dL (0.70-1.30); Chloride 104 mmol/L (98-107); Estimated GFR 85.27 (mL/min/1.73m2); FREE T4 1.89 ng/dL (0.76-1.46); Glucose 187 mg/dL (74-106); Potassium 4.2 mmol/L (3.5-5.1); Sodium 139 mmol/L (136-145); Total Protein 7.5 g/dL (6.4-8.2)
[2023-05-02 09:45] LABS: AFP Tumor Marker 105.8 ng/mL (<8.1)
== END 2023-04-30 04:54 | disposition home or self-care (01) ==
LOC: LBO 04:53
PROVIDERS: PCP Family Medicine; Visit Provider Internal Medicine Hematology & Oncology
DX: C20 Malignant neoplasm of rectum (principal); Z79.899 Other long term (current) drug therapy
CPT/HCPCS: 36415; 80053; 82105; 84439; 84443; 85025

== ENCOUNTER 2023-05-02 10:04 | Outpatient (REF) | payer MEDICARE, OTHER, SELFPAY ==
[2023-05-02 10:34] LABS: Bilirubin Small (Negative); Blood Large (Negative); Clarity Cloudy (Clear); Glucose Negative (Negative); Ketones 15 mg/dL (Negative); Leukocyte Esterase Negative (Negative); Nitrite Negative (Negative); Specific Gravity 1.025 (1.005-1.025); pH 5.5 (5-8)
[2023-05-02 10:44] LABS: WBC >50 HPF (0-5)
[2023-05-02 10:45] LABS: C & S Indicated? Yes
== END 2023-05-02 10:05 | disposition home or self-care (01) ==
LOC: LBN 10:04
PROVIDERS: PCP Family Medicine; Visit Provider Urology
DX: R31.0 Gross hematuria (principal); R32 Unspecified urinary incontinence; R82.998 Other abnormal findings in urine
CPT/HCPCS: 81003; 81015; 87086

== ENCOUNTER 2023-05-04 02:53 | Outpatient (CLI) | payer MEDICARE, OTHER, SELFPAY ==
[2023-05-04 08:06] LABS: Abs Immature Grans 0.04 10^3/uL (0.0-0.06); Absolute Basophil Count 0.03 10^3/uL (0.0-0.2); Absolute Eosinophil Count 0.21 10^3/uL (0.0-0.7); Absolute Lymphocyte Count 1.15 10^3/uL (1.2-3.4); Absolute Monocyte Count 0.43 10^3/uL (0.1-0.8); Absolute Neutrophil Count 2.71 10^3/uL (1.2-6.7); Basophils % 0.7; Eosinophils % 4.6; HCT 40.1 % (40.0-50.0); HGB 13.4 g/dL (13.5-17.5); Immature Grans % 0.9; Lymphocytes % 25.2; MCH 32.1 pg (27.0-33.0); MCHC 33.4 % (32.0-36.0); MCV 96 fL (80-95); MPV 9.2 fL (8.0-11.0); Monocytes % 9.4; Neutrophils % 59.2; Platelet Count 178 10^3/uL (130-400); RBC 4.18 10^6/uL (4.36-5.78); RDW 14.5 % (11.8-14.1); RDW-SD 51.1 fL; WBC 4.57 10^3/uL (4.4-10.8)
[2023-05-04 08:30] LABS: ALT 206 U/L (16-63); AST 165 U/L (15-37); Albumin 2.9 g/dL (3.4-5.0); Alkaline Phosphatase 352 U/L (46-116); BUN 11 mg/dL (7-18); Bilirubin, Total 1.1 mg/dL (0.2-1.0); CREATININE 0.9 mg/dL (0.70-1.30); Calcium 8.9 mg/dL (8.5-10.1); Chloride 106 mmol/L (98-107); Estimated GFR 85.27 (mL/min/1.73m2); FREE T4 1.94 ng/dL (0.76-1.46); Glucose 187 mg/dL (74-106); Potassium 4.2 mmol/L (3.5-5.1); Sodium 142 mmol/L (136-145); TSH 1.93 uIU/mL (0.36-3.74); Total Protein 7.2 g/dL (6.4-8.2)
[2023-05-07 10:08] LABS: AFP Tumor Marker 84.2 ng/mL (<8.1)
== END 2023-05-04 02:54 | disposition home or self-care (01) ==
LOC: LBO 02:53
PROVIDERS: PCP Family Medicine; Visit Provider Internal Medicine Hematology & Oncology
DX: C22.0 Liver cell carcinoma (principal); Z79.899 Other long term (current) drug therapy
CPT/HCPCS: 36415; 80053; 82105; 84439; 84443; 85025

== ENCOUNTER 2023-05-07 04:24 | Outpatient (CLI) | payer MEDICARE, OTHER, SELFPAY ==
[2023-05-07 07:55] LABS: Abs Immature Grans 0.03 10^3/uL (0.0-0.06); Absolute Basophil Count 0.02 10^3/uL (0.0-0.2); Absolute Eosinophil Count 0.09 10^3/uL (0.0-0.7); Absolute Lymphocyte Count 1.38 10^3/uL (1.2-3.4); Absolute Neutrophil Count 4.77 10^3/uL (1.2-6.7); Basophils % 0.3; Eosinophils % 1.3; HCT 37.8 % (40.0-50.0); HGB 12.8 g/dL (13.5-17.5); Immature Grans % 0.4; MCH 32.5 pg (27.0-33.0); MCHC 33.9 % (32.0-36.0); MCV 96 fL (80-95); MPV 9.2 fL (8.0-11.0); Monocytes % 8.7; Neutrophils % 69.3; Platelet Count 174 10^3/uL (130-400); RBC 3.94 10^6/uL (4.36-5.78); RDW 14.6 % (11.8-14.1); RDW-SD 51.8 fL; WBC 6.89 10^3/uL (4.4-10.8)
[2023-05-07 09:07] LABS: ALT 231 U/L (16-63); AST 155 U/L (15-37); Alkaline Phosphatase 356 U/L (46-116); Anion Gap 8.6 mmol/L (3-11); BUN 19 mg/dL (7-18); Bilirubin, Total 0.6 mg/dL (0.2-1.0); CO2 27.4 mmol/L (21.0-32.0); CREATININE 0.9 mg/dL (0.70-1.30); Calcium 8.9 mg/dL (8.5-10.1); Chloride 103 mmol/L (98-107); Estimated GFR 85.27 (mL/min/1.73m2); FREE T4 1.63 ng/dL (0.76-1.46); Glucose 142 mg/dL (74-106); Potassium 3.7 mmol/L (3.5-5.1); Sodium 139 mmol/L (136-145); TSH 1.68 uIU/mL (0.36-3.74); Total Protein 7.6 g/dL (6.4-8.2)
[2023-05-09 11:08] LABS: AFP Tumor Marker 79.6 ng/mL (<8.1)
== END 2023-05-07 04:25 | disposition home or self-care (01) ==
LOC: LBO 04:24
PROVIDERS: PCP Family Medicine; Visit Provider Internal Medicine Hematology & Oncology
DX: C22.0 Liver cell carcinoma (principal); Z79.899 Other long term (current) drug therapy
CPT/HCPCS: 36415; 80053; 82105; 84439; 84443; 85025

== ENCOUNTER 2023-05-09 01:43 | Outpatient (CLI) | payer MEDICARE, OTHER, SELFPAY ==
--- NOTE | 2023-05-09 | DI.CT_ITS ---
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 Pulmonary parenchyma: No architectural distortion. Multiple calcified pulmonary nodules. The perivas cular thickening in the right middle lobe has resolved. There are small areas of consolidation in th e lateral right middle lobe and the right lower lobe which were not present on the prior examination. There is atelectasis in the lung bases bilaterally. Mediastinum and Mary: No dominant adenopathy or fluid collection. The esophagus is unremarkable. Pleura: There is a small right pleural effusion. No left pleural effusion. No pneumothorax. Heart: The heart is not dilated. Coronary artery calcifications are present. No pericardial effusion . Pulmonary arteries: No pulmonary emboli are identified. Aorta: Thoracic aorta non-dilated. Atherosclerosis. No evidence of dissection. Lymph nodes: Within normal limits. Soft tissues: Unremarkable. Bones:Within normal limits for the patient's age. No aggressive osseous lesions. ABDOMEN: Liver: There is a stable hypodense mass in the dome of the liver. The liver has a lobulated appearan ce with an enlarged left lobe. There may be underlying a cirrhosis. No new hepatic masses are seen. There are stable hyperdense mass is best appreciated on the arterial images. Portal, Superior Mesenteric, and Splenic Veins: Unremarkable. Gallbladder and Biliary Tract: Status post cholecystectomy. Pancreas: There again seen calcifications in the head of the pancreas. There is marked dilatation of the pancreatic duct and pancreatic atrophy. This is unchanged. Spleen: Normal. Adrenals: No masses seen. Kidneys: Normal size, contour and axis. Stable nephrolithiasis. No hydronephrosis. Stable bilateral renal cysts. No follow-up is recommended. Abdominal Aorta: Abdominal portion non-dilated. Atherosclerosis. Bowel: There is diverticulosis of the colon without evidence of acute diverticulitis. No evidence of bowel obstruction or bowel wall thickening. There is no evidence of appendicitis. Peritoneal Cavity: There again seen peritoneal masses. There has been interval crease in size of 1 o f the masses adjacent to the cecum posteriorly. It measures 2.4 x 2.5 cm. This compares to 1.9 x 1. 8 cm. The mass in the cul-de-sac in the pelvis measures 2.4 x 1.7 cm compared to 1.6 x 1.1 cm. Ther e is a moderate amount of abdominal pelvic ascites. Lymph Nodes: There are stable mesenteric lymph nodes present. Bones: Within normal limits for the patient's age. Soft Tissues: There is a small fat containing umbilical hernia. PELVIS: Bladder: Symmetric distention, no gross wall thickening. Reproductive Organs: The prostate gland is enlarged. Lymph Nodes: Within normal limits. Bones: Within normal limits. IMPRESSION: 1. Resolution of the perivascular opacity in the right middle lobe. 2. New peripheral opacities in the right middle and right lower lobes. Differential considerations i nclude atelectasis, pneumonia, metastatic disease. 3. Interval increase in size of peritoneal implants. 4. Stable hepatic mass. 5. Moderate abdominal pelvic ascites. 6. Hyperdense hepatic masses are again seen. The appears stable. RADIATION DOSE DELIVERED: 1,794.98mGy.cm Total DLP DATA REPOSITORY: All CT scans at this facility are submitted to the National Radiology Data Registry (NRDR) Dose Index Registry (DIR) with the [employer] (ACR). RADIATION OPTIMIZATION: All CT scans at this facility use at least one of these dose optimization te chniques: automated exposure control; mA and/or kV adjustment per patient size (includes targeted exa ms where dose is matched to clinical indication); or iterative reconstruction.
[2023-05-09] MEDS: Barium Sulfate 2% W/V-Creamy Vanilla Smoothie 450 ML BTL PO (08:15)
[2023-05-09] MEDS: Omnipaque 350 MG/ML 100 ML BTL IJ (10:57)
[2023-05-09] MEDS: Normal Saline Flush 10 ML SYR IVP (10:59)
== END 2023-05-09 02:03 ==
LOC: DI 01:44
PROVIDERS: PCP Family Medicine; Visit Provider Internal Medicine Hematology & Oncology
DX: C22.0 Liver cell carcinoma (principal); R91.8 Other nonspecific abnormal finding of lung field; R18.8 Other ascites; K76.89 Other specified diseases of liver
CPT/HCPCS: 74177; 71260; J3490

== ENCOUNTER 2023-05-10 11:39 | Observation (INO) | payer MEDICARE, OTHER, SELFPAY ==
[2023-05-10] VITALS (25 sets, daily range): BP systolic 102–123; BP diastolic 55–96; PULSE 60–112; RESP 16–28; TEMP 36.4–36.7; O2SAT 92–97
--- NOTE | 2023-05-10 11:45 | RT.EKG_ITS ---
APPROVED REPORT Exam: Resting ECG Reason for Exam: dehydration Patient Location: E HR:82 bpm ECG Measurements Heart Rate 82 AXIS OK 206 P 69 QRSd 87 QRS 60 QT 380 T 44 QTc 422 Conclusion Sinus rhythm...normal P axis, V-rate 60- 99 Atrial premature complexes in couplets...pair SV complexes w/ short R-R Sinus rhythm with atrial premature complex. No prior for comparison.
[2023-05-10 12:29] LABS: Abs Immature Grans 0.05 10^3/uL (0.0-0.06); Absolute Basophil Count 0.01 10^3/uL (0.0-0.2); Absolute Eosinophil Count 0.01 10^3/uL (0.0-0.7); Absolute Lymphocyte Count 0.51 10^3/uL (1.2-3.4); Absolute Monocyte Count 0.24 10^3/uL (0.1-0.8); Absolute Neutrophil Count 6.18 10^3/uL (1.2-6.7); Basophils % 0.1; Eosinophils % 0.1; HCT 38.1 % (40.0-50.0); HGB 13.1 g/dL (13.5-17.5); Immature Grans % 0.7; Lymphocytes % 7.3; MCH 32.3 pg (27.0-33.0); MCHC 34.4 % (32.0-36.0); MCV 94 fL (80-95); MPV 9.9 fL (8.0-11.0); Monocytes % 3.4; Neutrophils % 88.4; Platelet Count 184 10^3/uL (130-400); RBC 4.05 10^6/uL (4.36-5.78); RDW 15.1 % (11.8-14.1); RDW-SD 52.4 fL
[2023-05-10 12:37] LABS: Bilirubin Negative (Negative); Blood Large (Negative); Clarity Cloudy (Clear); Glucose >=1000 mg/dL (Negative); Ketones 15 mg/dL (Negative); Leukocyte Esterase Negative (Negative); Nitrite Negative (Negative); Specific Gravity 1.025 (1.005-1.025); Urobilinogen 0.2 mg/dL (Up to 0.2); pH 5.5 (5-8)
--- NOTE | 2023-05-10 12:53 | DI.CT_ITS ---
Exam(s) CT HEAD WO EXAM: CT HEAD WO CLINICAL HISTORY: ptosis, weakness, dysphagia. TECHNIQUE: Imaging Protocol: Axial computed tomography images with coronal and sagittal reformatted images were created and reviewed COMPARISON: CT HEAD WITHOUT CONTRAST from 07/29/2011 FINDINGS: Ventricles and Extra axial spaces: Normal in size and morphology for the patient's age. Hemorrhage: None. Cerebral parenchyma: Normal. Midline shift: None. Brainstem/Cerebellum: Normal. Calvarium: Normal. Visualized Paranasal sinuses/Mastoids: Minimal mucous retention at the floors of the maxillary sinuse s. Soft Tissues: Unremarkable. IMPRESSION: No acute intracranial process. RADIATION DOSE DELIVERED: 786.72mGy.cm Total DLP DATA REPOSITORY: All CT scans at this facility are submitted to the National Radiology Data Registry (NRDR) Dose Index Registry (DIR) with the [employer] (ACR). RADIATION OPTIMIZATION: All CT scans at this facility use at least one of these dose optimization te chniques: automated exposure control; mA and/or kV adjustment per patient size (includes targeted exa ms where dose is matched to clinical indication); or iterative reconstruction.
--- NOTE | 2023-05-10 12:57 | DI.RAD_ITS ---
Exam(s) XR CHEST 2V PA LATERAL EXAM: XR CHEST 2V PA LATERAL CLINICAL HISTORY: shortness of breath TECHNIQUE: 2D digital imaging was performed. COMPARISON: CT CT CHEST/ABD/PEL W from 05/09/2023 FINDINGS: The lungs are suboptimally inflated. HEART: Normal size. Aorta: Not dilated. PULMONARY VASCULATURE: Normal. LUNGS: Streaky densities seen at the right lung base, atelectasis versus infiltrate. PLEURAL SPACE: No pleural effusion or pneumothorax. BONE:Unremarkable for age. IMPRESSION: Question infiltrate versus atelectasis at the right lung base. DATA REPOSITORY: RADIATION DOSE DELIVERED:
[2023-05-10 13:05] LABS: Bacteria Few HPF (Negative); Epithelial Cells Few HPF (Negative); WBC 0-2 HPF (0-5)
[2023-05-10 13:06] LABS: C & S Indicated? No; Casts Negative LPF (Negative); Mucus Negative (Negative)
[2023-05-10 13:23] LABS: ALT 201 U/L (16-63); AST 101 U/L (15-37); Albumin 2.8 g/dL (3.4-5.0); Alkaline Phosphatase 310 U/L (46-116); Anion Gap 15.1 mmol/L (3-11); BUN 24 mg/dL (7-18); Bilirubin, Total 0.9 mg/dL (0.2-1.0); CO2 20.9 mmol/L (21.0-32.0); CREATININE 1.1 mg/dL (0.70-1.30); Calcium 9.2 mg/dL (8.5-10.1); Chloride 103 mmol/L (98-107); Estimated GFR 67.02 (mL/min/1.73m2); Glucose 346 mg/dL (74-106); Magnesium 1.6 mg/dL (1.8-2.4); Potassium 4.2 mmol/L (3.5-5.1); Sodium 139 mmol/L (136-145); TSH 1.01 uIU/mL (0.36-3.74); Total Protein 6.8 g/dL (6.4-8.2)
[2023-05-10 13:26] LABS: Troponin I 115 ng/L (<or=60)
--- NOTE | 2023-05-10 13:57 | DI.MRI_ITS ---
Exam(s) MR BRAIN WO/W EXAM: MR BRAIN WO/W CLINICAL HISTORY: right foot drop, right lid ptosis,. TECHNIQUE: Multiplanar multisequence MRI of the brain was performed. CONTRAST MATERIAL: IV Contrast: 17 ML of Dotarem contrast administered. COMPARISON: CT CT HEAD WO from 05/10/2023 FINDINGS: VENTRICLES AND EXTRA AXIAL SPACES: Normal in size and morphology for the patient's age. HEMORRHAGE: None. CEREBRAL PARENCHYMA: Mild atrophy. No focus of restricted diffusion to suggest acute infarct. No spa ce-occupying lesion identified. No significant white matter changes. MIDLINE SHIFT: None. BRAINSTEM/CEREBELLUM: Normal. CALVARIUM: Normal. ENHANCEMENT: No suspicious enhancement identified. VISUALIZED PARANASAL SINUSES/MASTOIDS: mild mucous retention at the floors of the maxillary sinuses. OTHER FINDINGS: Orbits and pituitary are unremarkable. IMPRESSION: Unremarkable MRI of the brain. DATA REPOSITORY:
[2023-05-10 13:59] LABS: BE (Venous) -4 mmol/L (-2-3); HCO3 (Venous) 21 mmol/L (23-28); O2 Sat (Venous) 82 %; TCO2 (Venous) 20 mmol/L (24-29); pCO2 (Venous) 40 mmHg (41-51); pH (Venous) 7.34 (7.31-7.41); pO2 (Venous) 47 mmHg
[2023-05-10] MEDS: Lactated Ringers 1,000 ML 500 ML IV (14:00)
[2023-05-10 15:04] LABS: Troponin I 98 ng/L (<or=60)
[2023-05-10] MEDS: Insulin REGULAR-Human 100 UNITS/ML UNIT 6 UNITS SC (15:05)
--- NOTE | 2023-05-10 15:07 | RESPIRATORY ---
RT called to ED concerning Myasthenia Gravis for this pt. Performed baseline MIP and MEP measurements with pt. MIP -40 MEP +90
[2023-05-10] MEDS: Magnesium Gluconate 500 MG TAB PO (15:49)
--- NOTE | 2023-05-10 15:59 | ED.GENADUL_ITS ---
Discharge Plan Disposition Patient Disposition: Home Condition: Stable Discharge Details Clinical Impression: Foot drop, right, Elevated troponin Primary Care Provider: Oleg Rios ED Provider: Lanie Chu Discharge Data Discharge Date/Time-TO BE ENTERED AT DEPARTURE: 05/10/23 17:53 Medical Decision Making Complex 82-year-old male with known history of liver cancer and myasthenia gravis on recent immunotherapy with progressively worsening weakness, ptosis, dysphagia, and right lower extremity weakness CT head and diagnostic labs were ordered, patient is dehydrated with a gap and hyperglycemia on exam, low suspicion for diabetic ketoacidosis, pH VBG within normal limit Suspect dehydration from swallowing issues, received 1 L of LR with infusion CBC within normal limits per patient Troponin initially elevated at 120, repeat 98, suspect secondary to demand Denies any current chest pain or shortness of breath, no calf pain or swelling, I did consider pulmonary embolism, CT chest abdomen pelvis was reviewed from 2 days prior with no obvious evidence of large pulmonary embolism, this was not noted to be a CTA of patient's chest, however no hypoxia or significant dyspnea or tachypnea on initial assessment I have concerned with dysphagia and ptosis, and recent immunotherapy, case was consulted with neurologist at [facility], Dr. Quigley and he recommends initiating Mestinon and admission They do not capacity to take patient Case discussed with Dr. Jerez, neurology at [facility] and she recommends Mestinon initiation and MRI with and without contrast given complexity of neurological complaints and physical exam Dr. Silvino de oliveira was consulted and is agreeable to admission at this time, Mestinon was initiated, LR initiated 6 units of insulin for blood glucose of 346, will check fingerstick prior to initiation of glucose, low suspicion for diabetic ketoacidosis, suspect hyperglycemia and dehydration Dr. Jerez will evaluate the patient Dr. Way to admit, DNR/DNI status, confirmed with patient HPI General Date/Time Provider Initiated Documentation: 05/10/23 11:48 . 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 He received immunotherapy on April 20 and feels his symptoms started approximately 5 days after and which is progressively been worsening. He has had dyspnea on exertion without any chest discomfort. Denies calf pain or swelling, denies any recent flights, surgeries, long drives. Related Data Home Medications Medication Instructions Recorded Confirmed levothyroxine 137 mcg tablet 300 mcg PO DAILY 03/28/13 05/10/23 (Synthroid) metformin 1,000 mg tablet 1,000 mg PO BID 03/28/13 05/10/23 (Glucophage) wtjhremj-pxt-nkoje acid 0.4 1 tab PO DAILY 03/28/13 05/10/23 mg-lycopene 300 mcg-lutein 250 mcg tablet (Centrum Silver) omega 1-kcu-cny-fish oil 300 1,000 mg PO DAILY 03/28/13 05/10/23 mg-1,000 mg capsule simvastatin 20 mg tablet (Zocor) 20 mg PO DAILY 03/28/13 05/10/23 triamcinolone acetonide 0.1 % 1 applic topical PRN PRN 03/28/13 05/10/23 topical cream Cinnamon 1000 Mg 1,000 mg PO DAILY 04/02/13 05/10/23 aspirin 325 mg tablet 325 mg PO DAILY 06/05/13 05/10/23 chlorpheniramine maleate 4 mg 8 mg PO DAILY 06/05/13 05/10/23 tablet pseudoephedrine HCl 120 mg 120 mg PO DAILY 06/05/13 05/10/23 tablet,extended release (Sudafed 12 Hour) diltiazem HCl 120 mg 120 mg PO BID 03/04/14 05/10/23 capsule,extended release 24 hr (Cartia XT) B 12 1,000 mcg DAILY 10/22/15 05/10/23 cholecalciferol (vitamin D3) 50 2,000 unit PO DAILY 10/22/15 05/10/23 mcg (2,000 unit) tablet (D3 DOTS) loratadine-pseudoephedrine ER 10 1 ea PO DAILY PRN 10/22/15 05/10/23 mg-240 mg tablet,extended [id number] (Claritin-D 24 Hour) pxncoy-jzmvjauj-ytdbqox 2 cap PO TID 05/10/23 05/10/23 24,000-76,000-120,000 unit capsule,delayed rel (Creon) prednisone 20 mg tablet 60 mg PO DAILY 05/10/23 05/10/23 Allergies Allergy/AdvReac Type Severity Reaction Status Date / Time Cephalosporins Allergy Intermediate Skin Rash Verified 05/10/23 17:06 codeine [Codeine] Allergy Mild Nausea Unverified 03/31/23 21:21 hydromorphone HCl Allergy Mild Verified 05/10/23 17:06 [From Dilaudid] Sulfa (Sulfonamide Allergy Mild Skin Rash Verified 05/10/23 17:06 Antibiotics) General Stated Complaint: GenMedical NAFISA: 3 PFSH All Active Problems (Updated 05/12/23 @ 09:27 by CHRISTOFER Wise) Elevated troponin (Acute) Liver cancer (Acute) Advanced care planning/counseling discussion (Acute) Palliative care patient (Acute) Discharge planning issues (Acute) Myasthenia gravis (Chronic) Generalized weakness (Acute) Ptosis, right (Acute) Foot drop, right (Acute) Medical History Atrial fibrillation Bladder cancer Hypothyroidism Kidney stones Liver cancer Pancreatitis s/p cholecystitis/cholecystectomy with stone in pancreatic duct Type 2 diabetes mellitus Surgical History History of appendectomy History of bilateral inguinal hernia repair History of bladder surgery bladder ablation History of cardiac radiofrequency ablation for atrial fibrillation History of carpal tunnel release History of left knee replacement History of repair of rotator cuff Bilateral History of tonsillectomy Social History Smoking/Tobacco Use Status: Former Tobacco Use Smoking risk assessment performed?: Yes Alcohol Intake: never Drug use: Never Do you feel safe at home: Yes Do you feel safe in your relationship?: Yes Exam Narrative Exam Narrative: Patient alert and oriented, moist mucous membranes, pupils equal round reactive to light and accommodation, EOMI, right eyelid ptosis, no midline neck tenderness, lungs clear to auscultation bilaterally, sinus rhythm, no abdominal tenderness, alert and oriented x4, 3-5 strength with dorsiflexion right foot, plantarflexion intact bilaterally to lower extremities, hand grasp intact bilaterally late upper extremities, negative heel brennan bilaterally, no pronator drift, negative iymgpm-rmwu-icgumm, cranial nerves II through XII intact, sensation intact Course Vital Signs Vital signs: Vital Signs Temperature 36.7 C 05/10/23 11:44 Pulse 68 05/10/23 11:44 Respiratory Rate 19 05/10/23 11:44 Blood Pressure 118/61 05/10/23 11:44 Pulse Oximetry 97 05/10/23 11:44 Temperature 36.7 C 05/10/23 11:44 Temperature Source Skin 05/10/23 11:44 Pulse 77 05/10/23 15:00 Pulse 81 05/10/23 15:10 Respiratory Rate 21 05/10/23 15:10 Respiratory Effort Normal 05/10/23 12:36 Respiratory Depth Normal 05/10/23 12:22 Respiratory Pattern Normal 05/10/23 12:22 Blood Pressure 109/63 05/10/23 15:00 Blood Pressure Mean 74 05/10/23 15:00 Pulse Oximetry 94 05/10/23 15:10 Oxygen Delivery Method Room Air 05/10/23 11:44 Oxygen Flow Rate 0 05/10/23 11:44 Pain Level 2 05/10/23 11:44 Comment left abdomen 05/10/23 11:44 Lab/Test Results Lab/Test Results: Laboratory Tests Range/Units 05/10/23 05/10/23 05/10/23 12:04 12:04 12:30 WBC (4.4-10.8) 10^3/uL 7.00 RBC (4.36-5.78) 10^6/uL 4.05 L Hgb (13.5-17.5) g/dL 13.1 L Hct (40.0-50.0) % 38.1 L MCV (80-95) fL 94 MCH (27.0-33.0) pg 32.3 MCHC (32.0-36.0) % 34.4 RDW (11.8-14.1) % 15.1 H Plt Count (130-400) 10^3/uL 184 MPV (8.0-11.0) fL 9.9 Immature Gran % 0.7 Neutrophils % 88.4 Lymphocytes % 7.3 Monocytes % 3.4 Eosinophils % 0.1 Basophils % 0.1 Nucleated RBC % (0.0-0.3) % 0.0 Absolute Neutrophils (1.2-6.7) 10^3/uL 6.18 Absolute Lymphocytes (1.2-3.4) 10^3/uL 0.51 L Absolute Monocytes (0.1-0.8) 10^3/uL 0.24 Absolute Eosinophils (0.0-0.7) 10^3/uL 0.01 Absolute Basophils (0.0-0.2) 10^3/uL 0.01 VBG pH (7.31-7.41) VBG pCO2 (41-51) mmHg VBG pO2 mmHg VBG HCO3 (23-28) mmol/L VBG Total CO2 (24-29) mmol/L VBG O2 Saturation % VBG Base Excess (-2-3) mmol/L Sodium (136-145) mmol/L 139 Potassium (3.5-5.1) mmol/L 4.2 Chloride (98-107) mmol/L 103 Carbon Dioxide (21.0-32.0) mmol/L 20.9 L Anion Gap (3-11) mmol/L 15.1 H BUN (7-18) mg/dL 24 H Creatinine (0.70-1.30) mg/dL 1.1 Est GFR (CKD-EPI 2020) (mL/min/1.73m2) 67.02 Glucose (74-106) mg/dL 346 H Calcium (8.5-10.1) mg/dL 9.2 Magnesium (1.8-2.4) mg/dL 1.6 L Total Bilirubin (0.2-1.0) mg/dL 0.9 AST (15-37) U/L 101 H ALT (16-63) U/L 201 H Alkaline Phosphatase (46-116) U/L 310 H Troponin I (<or=60) ng/L 115 H* Total Protein (6.4-8.2) g/dL 6.8 Albumin (3.4-5.0) g/dL 2.8 L TSH (0.36-3.74) uIU/mL 1.01 Urine Color (Yellow) Yellow Urine Clarity (Clear) Cloudy Urine pH (5-8) 5.5 Ur Specific [place] (1.005-1.025) 1.025 Urine Protein (Negative) mg/dL 30 H Urine Ketones (Negative) mg/dL 15 H Urine Blood (Negative) Large H Urine Nitrite (Negative) Negative Urine Bilirubin (Negative) Negative Urine Urobilinogen (Up to 0.2) mg/dL 0.2 Ur Leukocyte Esterase (Negative) Negative Urine RBC (0-2) HPF 10-20 H Urine WBC (0-5) HPF 0-2 Ur Epithelial Cells (Negative) HPF Few Urine Crystals (Negative) HPF Urine Bacteria (Negative) HPF Few Urine Casts (Negative) LPF Negative Urine Mucus (Negative) Negative Ur Culture Indicated? No Urine Glucose (Negative) mg/dL >=1000 H Range/Units 05/10/23 05/10/23 13:52 13:52 WBC (4.4-10.8) 10^3/uL RBC (4.36-5.78) 10^6/uL Hgb (13.5-17.5) g/dL Hct (40.0-50.0) % MCV (80-95) fL MCH (27.0-33.0) pg MCHC (32.0-36.0) % RDW (11.8-14.1) % Plt Count (130-400) 10^3/uL MPV (8.0-11.0) fL Immature Gran % Neutrophils % Lymphocytes % Monocytes % Eosinophils % Basophils % Nucleated RBC % (0.0-0.3) % Absolute Neutrophils (1.2-6.7) 10^3/uL Absolute Lymphocytes (1.2-3.4) 10^3/uL Absolute Monocytes (0.1-0.8) 10^3/uL Absolute Eosinophils (0.0-0.7) 10^3/uL Absolute Basophils (0.0-0.2) 10^3/uL VBG pH (7.31-7.41) 7.34 VBG pCO2 (41-51) mmHg 40 L VBG pO2 mmHg 47 VBG HCO3 (23-28) mmol/L 21 L VBG Total CO2 (24-29) mmol/L 20 L VBG O2 Saturation % 82 VBG Base Excess (-2-3) mmol/L -4 L Sodium (136-145) mmol/L Potassium (3.5-5.1) mmol/L Chloride (98-107) mmol/L Carbon Dioxide (21.0-32.0) mmol/L Anion Gap (3-11) mmol/L BUN (7-18) mg/dL Creatinine (0.70-1.30) mg/dL Est GFR (CKD-EPI 2020) (mL/min/1.73m2) Glucose (74-106) mg/dL Calcium (8.5-10.1) mg/dL Magnesium (1.8-2.4) mg/dL Total Bilirubin (0.2-1.0) mg/dL AST (15-37) U/L ALT (16-63) U/L Alkaline Phosphatase (46-116) U/L Troponin I (<or=60) ng/L 98 H* Total Protein (6.4-8.2) g/dL Albumin (3.4-5.0) g/dL TSH (0.36-3.74) uIU/mL Urine Color (Yellow) Urine Clarity (Clear) Urine pH (5-8) Ur Specific [place] (1.005-1.025) Urine Protein (Negative) mg/dL Urine Ketones (Negative) mg/dL Urine Blood (Negative) Urine Nitrite (Negative) Urine Bilirubin (Negative) Urine Urobilinogen (Up to 0.2) mg/dL Ur Leukocyte Esterase (Negative) Urine RBC (0-2) HPF Urine WBC (0-5) HPF Ur Epithelial Cells (Negative) HPF Urine Crystals (Negative) HPF Urine Bacteria (Negative) HPF Urine Casts (Negative) LPF Urine Mucus (Negative) Ur Culture Indicated? Urine Glucose (Negative) mg/dL PAWSS Have you Been Recently Intoxicated or Drunk Within the Last 30 days?: No Have you Ever Experienced Previous Episodes of Alcohol Withdrawal?: No Have you ever Experienced Withdrawal Seizures?: No Have you ever Experienced Delirium Tremens(DT)s?: No Have you ever undergone Alcohol Rehabilitation Treatment (i.e, inpt ot outpatient treatment programs)?: No Have you ever Experienced Blackouts?: No Have you ever Combined Alcohol with other Downers within the last 90 days?: No Have you ever Combined Alcohol with any other Substance of Abuse during the last 90 days?: No Positive Blood Alcohol level on Presentation? [PCS.BAL]: No Evidence of Increased Autonomic Activity (i.e. HR>120, tremor, sweating, agitation, nausea)?: No Result: 0
[2023-05-10] MEDS: Gadoterate meglumine 20 ML VIAL IVP (16:15)
[2023-05-10] MEDS: Normal Saline Flush 10 ML SYR IJ (16:16)
--- NOTE | 2023-05-10 16:54 | W.NEUROCONSU ---
Date of service: 05/10/23 Time of Service: 16:54 Assessment and Plan Assessment and plan (1) Foot drop, right: Status: Acute (2) Ptosis, right: Status: Acute (3) Generalized weakness: Status: Acute (4) Myasthenia gravis: Status: Chronic Assessment and plan: #1. Generalized weakness and R ptosis with known history of Myasthenia Gravis and recent treatment with Keytruda x2. He seems to have responded to Mestinon 60mg x1, though not completely back to baseline. Would continue Mestinon 60mg TID 1 hr before meal times for now. Monitor for ADRs - he does not recall what problems he had previously. Continue MIP/MEP qshift x24 hr and ok to d/c if stable. He is not complaining of SOB or orthopnea so low concern. Continue prednisone as per oncology team. This may also help his myasthenia as well, though hasn't seemed to as yet. . #2. Right foot drop. I don't think this is related to myasthenia gravis. Could be compressive or related to his known neuropathy? Not clearly related to Keytruda. Recommend PT consult. Will plan for NCS/EMG as an outpatient. History of Present Illness History of Present Illness Chief Complaint: weakness Narrative: Handedness: right. HPI: Mr. Quiles is an 82 year-old with metastatic hepatocellular carcinoma, myasthenia gravis, hypertension, hyperlipidemia, DM2, atrial fibrillation - not on anticoagulation, hypothyroidism, nephrolithiasis, and bladder cancer s/p abaltive treatment. Mr. Quiles was treated with Keytruda on 03/28/23 and then 04/20/23. He notes since the second treatment, significant generalized weakness and fatigue. For about a month, he has been noticing variable R ptosis, worse with time .During the same time frame, he has developed right foot drop - which has not changed with time. He has been tripping on his toe. He has also felt his voice has been weak. On 05/05/23 he was started on prednisone 40mg daily, which was increased to 60mg daily yesterday 05/09/23, for rising LFTs post treatment of Keytruda. This has not improved his generalized or focal weaknesses. He has no numbness or tingling. He has no SOB or othopnea. He has occasional and chronic difficulty swallowing pills that has not changed recently. He has had no diplopia. He has new urinary incontinence as well as blood in his urine that is being worked up by Dr. Biswas ([facility] Urology) and Dr. Prado ([facility]). In regards to his history of MG, he was diagnosed in 2010. I was able to review a few neurology notes from [id number] here at [facility] with Dr. Moon. 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 His only symptoms at that time were L ptosis for which he was recommended surgery which was done in 2012/2013 in [place] (lid and frontalis muscle elevation surgery). He tells me he was seen by neurology at [facility] after 2013, but not for several years with no symptoms of MG over the years. He had a CT C/A/P yesterday without evidence of thymic tumor/mass. He was given Mestinon 60mg in the ER with improvement in his voice, weakness, ptosis - felt more energized. Work-up: -CTH (05/10/23): No acute findings. I reviewed these images personally and this is my personal interpretation. -MRI brain w/o (05/10/23): No acute findings. Generalized atrophy. I reviewed these images personally and this is my personal interpretation. Review of Systems All systems reviewed & are unremarkable except as noted in HPI and below PFSH All Active Problems (Updated 05/10/23 @ 18:57 by Karthik Santoyo MD) Discharge planning issues (Acute) Myasthenia gravis (Chronic) Generalized weakness (Acute) Ptosis, right (Acute) Foot drop, right (Acute) Medical History Atrial fibrillation Bladder cancer Hypothyroidism Kidney stones Liver cancer Pancreatitis s/p cholecystitis/cholecystectomy with stone in pancreatic duct Type 2 diabetes mellitus Surgical History History of appendectomy History of bilateral inguinal hernia repair History of bladder surgery bladder ablation History of cardiac radiofrequency ablation for atrial fibrillation History of carpal tunnel release History of left knee replacement History of repair of rotator cuff Bilateral History of tonsillectomy Social History Smoking/Tobacco Use Status: Former Tobacco Use Smoking risk assessment performed?: Yes Alcohol Intake: never Drug use: Never Do you feel safe at home: Yes Do you feel safe in your relationship?: Yes Visit Medication and Allergies Active Medications Generic Name Dose Route Start Last Admin Trade Name Freq PRN Reason Stop Dose Admin Acetaminophen 0 mg 05/10/23 15:37 Acetaminophen 325 Mg Tab PO Q4H PRN PRN Al Hydrox/Mg Hydrox/Simethicone 30 ml 05/10/23 15:37 Mylanta Suspension 30 Ml Cup PO Q2H PRN PRN Lipase/Protease/Amylase 2 cap 05/11/23 08:00 Creon, Lipase 12,000 Capcr PO QMEALS DARRIAN Aspirin 325 mg 05/11/23 08:30 Aspirin 325 Mg Tab PO DAILY DARRIAN Dextrose 0 gm 05/10/23 15:41 Glucose Oral Gel 15 Gm/37.5 Gm Tube PO DIRECTED PRN Dextrose/Water 0 gm 05/10/23 15:41 Dextrose 50%-Water 25 Gm/50 Ml Syr IVP DIRECTED PRN Diltiazem HCl 120 mg 05/10/23 20:00 Diltiazem Cd 120 Mg Capcr PO BID DARRIAN Dimethicone/Zinc Oxide 0 gm 05/10/23 15:32 Ric Protect Cream 142 Gm Tube TP PRN PRN Enoxaparin Sodium 40 mg 05/10/23 16:00 Enoxaparin 40 Mg/0.4 Ml Syr SC Q24H DARRIAN Gadoterate Meglumine 20 ml 05/10/23 16:15 05/10/23 16:15 Gadoterate Meglumine 20 Ml Vial IVP 06/09/23 23:59 17 ml DIRECTED DARRIAN Administration Ringer's Solution 1,000 mls @ 200 mls/hr 05/10/23 14:00 IV INFUSION [facility] Insulin Aspart 0 units 05/10/23 17:00 Insulin Aspart 300 Units/3 Ml Pen SC 0800,1200,1700 [facility] Protocol Insulin Glargine 15 units 05/10/23 15:42 Insulin Glargine 300 Units/3 Ml Pen SC 05/10/23 15:43 ONCE ONE Levothyroxine Sodium 300 mcg 05/11/23 06:00 Levothyroxine 150 Mcg Tab PO DAILY@0600 [facility] Magnesium Hydroxide 30 ml 05/10/23 15:37 Milk Of Magnesia 30 Ml Cup PO DAILY PRN PRN Ondansetron HCl 4 mg 05/10/23 15:43 Ondansetron 4 Mg/2 Ml Vial IVP Q4H PRN PRN Polyethylene Glycol 17 gm 05/10/23 15:37 Polyethylene Glycol 3350 17 Gm Packet PO DAILY PRN PRN Constipation Prednisone 60 mg 05/11/23 08:30 Prednisone 20 Mg Tab PO DAILY DARRIAN Simvastatin 10 mg 05/10/23 20:00 Simvastatin 10 Mg Tab PO QPM [facility] Sodium Chloride 0 ml 05/10/23 16:16 05/10/23 16:16 Normal Saline Flush 10 Ml Syr IJ 10 ml PRN PRN Administration Allergies Cephalosporins Allergy (Intermediate, Unverified 05/10/23 12:39) Skin Rash codeine [Codeine] Allergy (Mild, Unverified 03/31/23 21:21) Nausea hydromorphone HCl [From Dilaudid] Allergy (Mild, Unverified 05/10/23 12:39) Sulfa (Sulfonamide Antibiotics) Allergy (Mild, Unverified 05/10/23 12:39) Skin Rash Exam Narrative Exam Narrative: Physical Exam: Gen: Patient of apparent stated age, NAD Head and face: no facial or cranial abnormalities Neck: Supple, no meningismus, no occipital tenderness CV: + S1, S2, RRR, no murmur Resp: CTA B/L Abd: soft, nontender, nondistended Ext: No edema. No clubbing or cyanosis. No bony deformity. Neuro Exam: Language: fluency, naming, repetition, and comprehension intact; Mental Status: AAOx3, current events intact, fund of knowledge intact; Speech: no dysarthria Cranial nerves: Funduscopy: not performed CN II: visual padilla intact CN III, IV, : extraocular movements intact, no nystagmus, pupils symmetric and reactive to light CN V: face sensation intact to LT and PP CN VII: mild R ptosis; noted prior L eye surgery; no Cogen's lid twitch CN VIII: hearing intact bilaterally CN IX, X: palate rises symmetrically CN XI: trapezius/SCM 5/5 bilaterally CN XII: protrudes tongue symmetrically Sensory: intact to LT, PP, and joint position in all extremities; absent vibration in the toes Motor: bulk and tone intact. Fine motor movements slightly reduced bilaterally. No pronator drift. Strength 5/5 throughout including the deltoids, biceps, triceps, wrist extensors, hip flexors, knee flexors, knee extensors, ankle flexors, and ankle extensors except 3/5 R ankle dorsiflexion. Reflexes: 1+/+ at the biceps, triceps, brachioradialis, patella, and achilles tendons bilaterally; toes down going bilaterally; Coordination: FTN and HTS intact bilaterally Gait: not tested Results Last Vital Signs Temp 98.1 F 05/10/23 11:44 Pulse 77 05/10/23 15:00 Resp 21 05/10/23 15:10 BP 109/63 05/10/23 15:00 Pulse Ox 94 05/10/23 15:10 Labs 05/10/23 12:04 05/10/23 12:04 Labs: Laboratory Results - last 24 hr 05/10/23 05/10/23 05/10/23 12:04 12:04 12:30 WBC 7.00 RBC 4.05 L Hgb 13.1 L Hct 38.1 L MCV 94 MCH 32.3 MCHC 34.4 RDW 15.1 H Plt Count 184 MPV 9.9 Immature Gran % 0.7 Neutrophils % 88.4 Lymphocytes % 7.3 Monocytes % 3.4 Eosinophils % 0.1 Basophils % 0.1 Nucleated RBC % 0.0 Absolute Neutrophils 6.18 Absolute Lymphocytes 0.51 L Absolute Monocytes 0.24 Absolute Eosinophils 0.01 Absolute Basophils 0.01 VBG pH VBG pCO2 VBG pO2 VBG HCO3 VBG Total CO2 VBG O2 Saturation VBG Base Excess Sodium 139 Potassium 4.2 Chloride 103 Carbon Dioxide 20.9 L Anion Gap 15.1 H BUN 24 H Creatinine 1.1 Est GFR (CKD-EPI 2020) 67.02 Glucose 346 H Calcium 9.2 Magnesium 1.6 L Total Bilirubin 0.9 AST 101 H ALT 201 H Alkaline Phosphatase 310 H Troponin I 115 H* Total Protein 6.8 Albumin 2.8 L TSH 1.01 Urine Color Yellow Urine Clarity Cloudy Urine pH 5.5 Ur Specific [place] 1.025 Urine Protein 30 H Urine Ketones 15 H Urine Blood Large H Urine Nitrite Negative Urine Bilirubin Negative Urine Urobilinogen 0.2 Ur Leukocyte Esterase Negative Urine RBC 10-20 H Urine WBC 0-2 Ur Epithelial Cells Few Urine Crystals Urine Bacteria Few Urine Casts Negative Urine Mucus Negative Ur Culture Indicated? No Urine Glucose >=1000 H 05/10/23 05/10/23 13:52 13:52 WBC RBC Hgb Hct MCV MCH MCHC RDW Plt Count MPV Immature Gran % Neutrophils % Lymphocytes % Monocytes % Eosinophils % Basophils % Nucleated RBC % Absolute Neutrophils Absolute Lymphocytes Absolute Monocytes Absolute Eosinophils Absolute Basophils VBG pH 7.34 VBG pCO2 40 L VBG pO2 47 VBG HCO3 21 L VBG Total CO2 20 L VBG O2 Saturation 82 VBG Base Excess -4 L Sodium Potassium Chloride Carbon Dioxide Anion Gap BUN Creatinine Est GFR (CKD-EPI 2020) Glucose Calcium Magnesium Total Bilirubin AST ALT Alkaline Phosphatase Troponin I 98 H* Total Protein Albumin TSH Urine Color Urine Clarity Urine pH Ur Specific [place] Urine Protein Urine Ketones Urine Blood Urine Nitrite Urine Bilirubin Urine Urobilinogen Ur Leukocyte Esterase Urine RBC Urine WBC Ur Epithelial Cells Urine Crystals Urine Bacteria Urine Casts Urine Mucus Ur Culture Indicated? Urine Glucose
--- NOTE | 2023-05-10 17:36 | RESPIRATORY ---
RT performed repeat MIP and MEP measurements on pt. MIP -35 MEP +90
--- NOTE | 2023-05-10 18:27 | HPE_ITS ---
Date of service: 05/10/23 Time of Service: 18:27 Assessment and Plan Assessment and plan (1) Myasthenia gravis: Status: Chronic Assessment and plan: Neurology recommendations appreciated. Mestinon 60mg TID. He had side effects in the past when this was initiated (2010) but doesn't remember just what those were. He is agreeable to taking. First dose of mestinon in the ED. He noted improvement in LE weakness and was able to ambulate in the room. Cont prednisone 60mg daily. MIF/MEF testing BID. (2) Liver cancer: Assessment and plan: He has an appt with his oncologist on 05/11 at [address] results. (3) Ptosis, right: Status: Acute Assessment and plan: Previous surgery for eye weakness d/t myesthenia. (4) Type 2 diabetes mellitus: Assessment and plan: Elevated glucose related to prednisone. Cont home SS insulin with meals. Initiated lantus. Determine a routine dose in AM; given 15 units today. (5) Foot drop, right: Status: Acute Assessment and plan: Potentially secondary to his known neuropathy vs Keytruda related. PT consulted and will discuss an AFO. Dr Jerez will f/u as outpt for NCS/EMG. (6) Atrial fibrillation: Assessment and plan: S/P ablation. Now in sinus rhythm. Not on AC d/t h/o bladder cancer. (7) Discharge planning issues: Status: Acute Assessment and plan: LIkely d/c in AM. Palliative consulted but can see as outpt if he is discharged in the AM. 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 He presented with c/o weakness, difficulty swallowing and right eyelid weakness for several weeks. He receives immunotherapy for his liver cancer; last tx on April 20. He endorsed some dyspnea on exertion. No CP/cough, F/C. No calf tenderness/swelling. 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 He was placed on prednisone 60mg daily. He was found to have a mildly elevated BUN and a creatinine mildly higher than his baseline. The day prior to admission he had eaten little and had frequent loose stools after administration of contrast for a CT ab/pelvis on 05/09. He took a dose of immodium and the stools are no longer loose and frequent. CT head w/o acute findings. CBC normal. Troponin 120 > 98. Neurology at [facility] [place] consulted by ED provider. Mestinon recommended. Dr Jerez consulted for neurology and also recommended mestinon and MRI with and w/o contrast. This was also negative for acute findings. His blood glucose has been elevated since initiation of prednisone. Glucose of 346; given 6 units insulin and a dose of glargine insulin ordered. Review of Systems All systems reviewed & are unremarkable except as noted in HPI and below PFSH All Active Problems (Updated 05/10/23 @ 18:57 by Karthik Santoyo MD) Discharge planning issues (Acute) Myasthenia gravis (Chronic) Generalized weakness (Acute) Ptosis, right (Acute) Foot drop, right (Acute) Medical History Atrial fibrillation Bladder cancer Hypothyroidism Kidney stones Liver cancer Pancreatitis s/p cholecystitis/cholecystectomy with stone in pancreatic duct Type 2 diabetes mellitus Surgical History History of appendectomy History of bilateral inguinal hernia repair History of bladder surgery bladder ablation History of cardiac radiofrequency ablation for atrial fibrillation History of carpal tunnel release History of left knee replacement History of repair of rotator cuff Bilateral History of tonsillectomy Social History Smoking/Tobacco Use Status: Former Tobacco Use Smoking risk assessment performed?: Yes Alcohol Intake: never Drug use: Never Do you feel safe at home: Yes Do you feel safe in your relationship?: Yes Meds Allergies and Home Medications Allergies Allergy/AdvReac Type Severity Reaction Status Date / Time Cephalosporins Allergy Intermediate Skin Rash Verified 05/10/23 17:06 codeine [Codeine] Allergy Mild Nausea Unverified 03/31/23 21:21 hydromorphone HCl Allergy Mild Verified 05/10/23 17:06 [From Dilaudid] Sulfa (Sulfonamide Allergy Mild Skin Rash Verified 05/10/23 17:06 Antibiotics) Home Medications Medication Instructions Recorded Confirmed Type levothyroxine 137 mcg tablet 300 mcg PO DAILY 03/28/13 05/10/23 History (Synthroid) metformin 1,000 mg tablet 1,000 mg PO BID 03/28/13 05/10/23 History (Glucophage) drdkzurl-jfa-ktmpt acid 0.4 1 tab PO DAILY 03/28/13 05/10/23 History mg-lycopene 300 mcg-lutein 250 mcg tablet (Centrum Silver) omega 4-kbf-xde-fish oil 300 1,000 mg PO DAILY 03/28/13 05/10/23 History mg-1,000 mg capsule simvastatin 20 mg tablet (Zocor) 20 mg PO DAILY 03/28/13 05/10/23 History triamcinolone acetonide 0.1 % 1 applic topical PRN PRN 03/28/13 05/10/23 History topical cream Cinnamon 1000 Mg 1,000 mg PO DAILY 04/02/13 05/10/23 History aspirin 325 mg tablet 325 mg PO DAILY 06/05/13 05/10/23 History chlorpheniramine maleate 4 mg 8 mg PO DAILY 06/05/13 05/10/23 History tablet pseudoephedrine HCl 120 mg 120 mg PO DAILY 06/05/13 05/10/23 History tablet,extended release (Sudafed 12 Hour) diltiazem HCl 120 mg 120 mg PO BID 03/04/14 05/10/23 History capsule,extended release 24 hr (Cartia XT) B 12 1,000 mcg DAILY 10/22/15 05/10/23 History cholecalciferol (vitamin D3) 50 2,000 unit PO DAILY 10/22/15 05/10/23 History mcg (2,000 unit) tablet (D3 DOTS) loratadine-pseudoephedrine ER 10 1 ea PO DAILY PRN 10/22/15 05/10/23 History mg-240 mg tablet,extended [id number] (Claritin-D 24 Hour) ponngf-yckcazku-cvoshmo 2 cap PO TID 05/10/23 05/10/23 History 24,000-76,000-120,000 unit capsule,delayed rel (Creon) prednisone 20 mg tablet 60 mg PO DAILY 05/10/23 05/10/23 History Exam Narrative Exam Narrative: Gen: Lying in bed. NAD. Conversant. HEENT: MMM, Right eye ptosis. CV: RRR with intermittent extra beat. Lungs: Clear. Normal WOB Abd: soft, NT, ND Exts: No edema. Neuro. A&O x 3. BUE 5/5 strength. 3/5 right ankle dorsiflexion. NO pronator drift. Psych: Normal gen appearance. Normal affect. Results Labs 05/10/23 12:04 05/10/23 12:04 Labs: Laboratory Results - last 24 hr 05/10/23 05/10/23 05/10/23 12:04 12:04 12:30 WBC 7.00 RBC 4.05 L Hgb 13.1 L Hct 38.1 L MCV 94 MCH 32.3 MCHC 34.4 RDW 15.1 H Plt Count 184 MPV 9.9 Immature Gran % 0.7 Neutrophils % 88.4 Lymphocytes % 7.3 Monocytes % 3.4 Eosinophils % 0.1 Basophils % 0.1 Nucleated RBC % 0.0 Absolute Neutrophils 6.18 Absolute Lymphocytes 0.51 L Absolute Monocytes 0.24 Absolute Eosinophils 0.01 Absolute Basophils 0.01 VBG pH VBG pCO2 VBG pO2 VBG HCO3 VBG Total CO2 VBG O2 Saturation VBG Base Excess Sodium 139 Potassium 4.2 Chloride 103 Carbon Dioxide 20.9 L Anion Gap 15.1 H BUN 24 H Creatinine 1.1 Est GFR (CKD-EPI 2020) 67.02 Glucose 346 H Calcium 9.2 Magnesium 1.6 L Total Bilirubin 0.9 AST 101 H ALT 201 H Alkaline Phosphatase 310 H Troponin I 115 H* Total Protein 6.8 Albumin 2.8 L TSH 1.01 Urine Color Yellow Urine Clarity Cloudy Urine pH 5.5 Ur Specific [place] 1.025 Urine Protein 30 H Urine Ketones 15 H Urine Blood Large H Urine Nitrite Negative Urine Bilirubin Negative Urine Urobilinogen 0.2 Ur Leukocyte Esterase Negative Urine RBC 10-20 H Urine WBC 0-2 Ur Epithelial Cells Few Urine Crystals Urine Bacteria Few Urine Casts Negative Urine Mucus Negative Ur Culture Indicated? No Urine Glucose >=1000 H 05/10/23 05/10/23 13:52 13:52 WBC RBC Hgb Hct MCV MCH MCHC RDW Plt Count MPV Immature Gran % Neutrophils % Lymphocytes % Monocytes % Eosinophils % Basophils % Nucleated RBC % Absolute Neutrophils Absolute Lymphocytes Absolute Monocytes Absolute Eosinophils Absolute Basophils VBG pH 7.34 VBG pCO2 40 L VBG pO2 47 VBG HCO3 21 L VBG Total CO2 20 L VBG O2 Saturation 82 VBG Base Excess -4 L Sodium Potassium Chloride Carbon Dioxide Anion Gap BUN Creatinine Est GFR (CKD-EPI 2020) Glucose Calcium Magnesium Total Bilirubin AST ALT Alkaline Phosphatase Troponin I 98 H* Total Protein Albumin TSH Urine Color Urine Clarity Urine pH Ur Specific [place] Urine Protein Urine Ketones Urine Blood Urine Nitrite Urine Bilirubin Urine Urobilinogen Ur Leukocyte Esterase Urine RBC Urine WBC Ur Epithelial Cells Urine Crystals Urine Bacteria Urine Casts Urine Mucus Ur Culture Indicated? Urine Glucose Last Vital Signs Temp 36.4 C L 05/10/23 17:45 Pulse 72 05/10/23 17:45 Resp 18 05/10/23 17:45 BP 123/71 05/10/23 17:45 Pulse Ox 97 05/10/23 17:45 PAWSS Have you Been Recently Intoxicated or Drunk Within the Last 30 days?: No Have you Ever Experienced Previous Episodes of Alcohol Withdrawal?: No Have you ever Experienced Withdrawal Seizures?: No Have you ever Experienced Delirium Tremens(DT)s?: No Have you ever undergone Alcohol Rehabilitation Treatment (i.e, inpt ot outpatient treatment programs)?: No Have you ever Experienced Blackouts?: No Have you ever Combined Alcohol with other Downers within the last 90 days?: No Have you ever Combined Alcohol with any other Substance of Abuse during the last 90 days?: No Positive Blood Alcohol level on Presentation? [PCS.BAL]: No Evidence of Increased Autonomic Activity (i.e. HR>120, tremor, sweating, agitation, nausea)?: No Result: 0 Time Spent Time spent with Patient: 40-54 minutes Time was spent: preparing to see the patient(eg.review tests), obtaining and/or reviewing separately otained hiistory, ordering medications,tests, procedures, referring, communicating with other health healthcare network pricing consultant, indepentently interpreting results and counseling the patient
[2023-05-10] MEDS: Insulin Glargine 300 UNITS/3 ML PEN 15 UNITS SC (18:35)
[2023-05-10] MEDS: dilTIAZem CD 120 MG CAPCR PO (20:02)
[2023-05-10] MEDS: Simvastatin 10 MG TAB PO (20:02)
[2023-05-10] MEDS: Lactated Ringers 1,000 ML 200 ML IV (20:28)
[2023-05-11] VITALS (7 sets, daily range): BP systolic 117–145; BP diastolic 60–77; PULSE 56–100; RESP 16–20; TEMP 35.8–36.8; O2SAT 92–95
[2023-05-11] MEDS: Lactated Ringers 1,000 ML 200 ML IV ×3 (01:35→23:00)
[2023-05-11] MEDS: Levothyroxine 150 MCG TAB 300 MCG PO (05:32)
[2023-05-11 06:57] LABS: ALT 166 U/L (16-63); AST 75 U/L (15-37); Albumin 2.4 g/dL (3.4-5.0); Alkaline Phosphatase 277 U/L (46-116); BUN 23 mg/dL (7-18); Bilirubin, Total 0.6 mg/dL (0.2-1.0); CREATININE 0.8 mg/dL (0.70-1.30); Calcium 8.7 mg/dL (8.5-10.1); Chloride 109 mmol/L (98-107); Estimated GFR 88.36 (mL/min/1.73m2); Glucose 74 mg/dL (74-106); Magnesium 1.6 mg/dL (1.8-2.4); Potassium 3.2 mmol/L (3.5-5.1); Sodium 143 mmol/L (136-145); Total Protein 6.1 g/dL (6.4-8.2)
[2023-05-11] MEDS: Aspirin 325 MG TAB PO (08:29)
[2023-05-11] MEDS: predniSONE 20 MG TAB 60 MG PO (08:30)
[2023-05-11] MEDS: dilTIAZem CD 120 MG CAPCR PO ×2 (08:30→21:23)
--- NOTE | 2023-05-11 09:42 | PDOC.CMIN ---
Date of service: 05/11/23 Time of Service: 09:42 Care Management Initial Assmt Initial Assessment REASON FOR HOSPITALIZATION:: Dehydration, metastatic cancer PREVIOUS FUNCTIONAL STATUS/SOCIAL/FAMILY SUPPORTS:: Wagner lives in a single family home in [place], [place] with his Sarai. They have 2 sons who live in [place]. They also have 3 grandchildren and 3 great grandchildren. 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 His is a retired nurse. Wagner does not receive any community services and is independent at baseline. He is currently experiencing extreme weakness and exhaustion from his disease process but is still able to care for himself. CURRENT FUNCTIONAL STATUS:: Wagner was lying in bed when CM met with him. He was pleasant and engaged easily with CM. Wagner informed CM that he is exhausted, weak and tired. Tate stated that he cannot even drive at the moment. Wagner is used to being very active and finds it difficult not to be able to do the things he is used to doing. His Sarai is very supportive and does a great deal to help out. He shared that they met in 1958 and were [employer] sweethearts. They got in 1964 and have been together ever since. ADVANCE DIRECTIVES:: none on file Has patient been provided with info about the portal/API?: Yes Did the patient sign up for the portal?: Yes CODE STATUS:: DNR/DNI INSURANCE COVERAGE / FINANCIAL ISSUES:: Medicare [facility] Medicare supplement [employer] CURRENT HOME/COMMUNITY SERVICES/EQUIPMENT:: none PRIMARY CARE PHYSICIAN:: Oleg Rios POTENTIAL DISCHARGE NEEDS:: follow up with Oncology and PCP PATIENT/FAMILY EDUCATION NEEDS:: Review of discharge instructions, limitations, activity, follow up aristeo, discuss [employer] TRANSPORTATION:: via private vehicle with family PLAN:: Anticipate Wagner will be discharged home, possibly with new home health services. He will follow up with his PCP, Oncologist and plan of care and transport with family. CM will follow and support Wagner and his discharge planning needs. PFSH All Active Problems (Updated 05/11/23 @ 14:17 by Danielle Rivero MD) Liver cancer (Acute) Advanced care planning/counseling discussion (Acute) Palliative care patient (Acute) Discharge planning issues (Acute) Myasthenia gravis (Chronic) Generalized weakness (Acute) Ptosis, right (Acute) Foot drop, right (Acute) Medical History Atrial fibrillation Bladder cancer Hypothyroidism Kidney stones Liver cancer Pancreatitis s/p cholecystitis/cholecystectomy with stone in pancreatic duct Type 2 diabetes mellitus Surgical History History of appendectomy History of bilateral inguinal hernia repair History of bladder surgery bladder ablation History of cardiac radiofrequency ablation for atrial fibrillation History of carpal tunnel release History of left knee replacement History of repair of rotator cuff Bilateral History of tonsillectomy Social History Smoking/Tobacco Use Status: Former Tobacco Use Smoking risk assessment performed?: Yes Alcohol Intake: never Drug use: Never Do you feel safe at home: Yes Do you feel safe in your relationship?: Yes
--- NOTE | 2023-05-11 09:50 | W.PALLCONSUL ---
Date of service: 05/11/23 Time of Service: 10:00 History of Present Illness Narrative: Mr. Quiles is an 82-year-old gentleman from [facility] with hepatic carcinoma with lung mets (on Keytruda immunotherapy) and chronic myasthenia who presented to the [facility] yesterday with weakness, difficulty swallowing and right eyelid weakness for several weeks. Other medical problems include type 2 diabetes, history of bladder cancer in remission, atrial fibrillation, hypothyroidism, hypertension, SEJAL, hyperlipidemia Palliative care team has been asked to see him to help with goals of care conversations. Patient had had recent recurrence of the liver cancer. He was offered a trial of Keytruda. Had a second infusion first week in April and immediately started feeling awful. Reports extreme fatigue, worsening acute diarrhea on top of chronic diarrhea and then over the last few days developed eyelid proptosis. He has a history of myasthenia gravis diagnosed 12 years ago which responded to therapy and he has been asymptomatic off medication for at least 10 years. brain MRI done in the last 24 hours shows no stroke, metastasis, or other acute abnormality. Neurology has consulted with him. Unmasking of MG is a known side effect of Keytruda. He is going to see Oncology again next week and discuss further what, if any , treatments will be ordered. But he feels that he does not want to try any other chemotherapy options. Started on steroids 7 days ago (now up to 60 mg a day). This was initially started to help with his fatigue and diarrhea, now being used as a bridge for his MG until the Mestinon is working. 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 Initially treated with ablation. Diagnosed with peritoneal metastasis January 2023. Began therapy with Keytruda March 28, 2023.Patient also noted to have cirrhosis (etiology felt to be KATZ).Also with history of bladder cancer, status post fulguration. Currently getting annual cystoscopy surveillance with Dr. Biswas Care Team: Primary Care physician: Dr. Oleg Rios([facility]) Oncology: Dr. Prado (seen at [facility] Urology: Dr. 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 Lives with in [place]. Children live in [place]. Two sons and grandchildren and niyah. Hobbies: Mows (a lot, 30+ acres), vintage car repair. 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 What bothers you the most: The fatigue What worries you the most: Not really worried. Current information preferences: Function: Ambulation: Ambulates without aid ADLs:Independent iADLs:100% until last week Hearing:Sight hearing loss Vision:Good Palliative Performance Scale % Ambulation Activity and Evidence of Disease Self Care Intake Level of Consciousness 100 Full Normal activity, no evidence of disease Full Normal Full 90 Full Normal activity, some evidence of disease Full Normal Full 80 Full Normal activity with effort, some evidence of disease Full Normal or reduced Full 70 Reduced Unable to do normal work, some evidence of disease Full Normal or reduced Full 60 Reduced Unable to do hobby or some housework, significant disease Occasional assist necessary Normal or reduced Full or confusion 50 Mainly sit/lie Unable to do any work, extensive disease Considerable assistance required Normal or reduced Full or confusion 40 Mainly in bed Unable to do any work, extensive disease Mainly assistance Normal or reduced Full, drowsy, or confusion 30 Totally bed bound Unable to do any work, extensive disease Total care Reduced Full, drowsy, or confusion 20 Totally bed bound Unable to do any work, extensive disease Total care Minimal sips Full, drowsy, or confusion 10 Totally bed bound Unable to do any work, extensive disease Total care Mouth care only Drowsy or coma 0 - - - - Patient Score: 90 prior to acute illness, 70 since second keytruda infusion. Spiritual history:Believes in his own way. Raised [employer]. Praying help. Palliative review of systems: Pain: None Dyspnea: Some (notes more at home prior to admission) GI symptoms: Still having diarhea. HE has had chronic diarhea since gall bladder removed. Takes CREON, which helps. WOrse the last week : Increased incontinence in the last month. He is talking to urologist on phone since this worsened. Appetite: Good Depression: Depressed about sxs in the last month Anxiety: None Emotional Distress: Spiritual/Existential Distress: Labs: Cr: 0.8 Liver panel: AST over the last week 75?1 80 (trending down),ALT 166?231 (trending down), Alk phos 277 today, up to over 400 in February., Albumin: 2.4 (maximum 3.0 in the last week) CBC: Hgb 13.1 Advanced Care Planning: Advanced Directive:Yes, at home Health Care Agent: Sarai Quiles, Secondary is son Jules ([place], [place]). COLST: Reports that he has a POLST on file at Dr. Rios. Says no CPR and no ventilation. Also has a medical living will Limitations: Assessment and Plan Assessment and plan (1) Palliative care patient: Status: Acute Assessment and plan: Patient appropriate for palliative care team support ongoing given his diagnosis hepatocellular carcinoma with metastases. Explained palliative care team services. As he lives in [facility], we can see him at the office or even do home visits should he be unable to come to the office. Plan is for our office to contact him to arrange appointment as outpatient in about a month to help with symptom management, goals of care discussion and additional support. (2) Advanced care planning/counseling discussion: Status: Acute Assessment and plan: Patient reports that his goal is to remain as active and independent as possible as long as possible. He is pleased that he is felt so good for so long. Especially grateful that he and his family were able to go to [place] in January and do everything including walk 10 miles a day . He is sad, because he enjoys life and would like to enjoy more of it. But also grateful that he is someone who even enjoyed going to work which most people cannot say . We discussed goals of care. He wants to remain independent and active. He felt that the Keytruda definitely prevented him from doing this and is unlikely to consent any additional chemotherapy . He reports that he has requested DNI/DNR status for at least a year. At this point he would want to continue to be transferred to the hospital, received evaluation and treatment short of CPR/intubation. He has follow-up appointment with his oncologist in a week. At that point they will review current situation and discuss any potential treatments. Patient's advance directive was obtained from his PCPs office in [place] and reviewed. He also thought he had a POLST on file, some sort of document saying that he was DNR/DNI. After several phone calls, it appears that his PCPs office does not have this on file. Decision then made to fill out a [place] COLST form stating DNI/DNR, transfer and treat. 16 to 30 minutes spent today on Advance Care Planning. Patient and family participated voluntarily. Advance care planning may include (not limited to) explanation and discussion of advance directives, choosing and appointing healthcare agents, alternatives to various ACP tools, discussion of (and if indicated, completion of) COLST form, discussion of patient's values and overall goals for treatment, palliative and disease directive care options, ways to avoid hospital readmission including hospice discussions, care preferences should the patient's several other adverse health events.See today's palliative care note for additional information. (3) Myasthenia gravis: Status: Chronic Assessment and plan: Discussed role of medications and treatments. He is planning to follow-up with Dr. Jerez as his neurologist (he has had many neurologists and they have all moved away or retired). Discussed potential side effects of steroids. (4) Liver cancer: Status: Acute PFSH All Active Problems (Updated 05/11/23 @ 14:17 by Danielle Rivero MD) Liver cancer (Acute) Advanced care planning/counseling discussion (Acute) Palliative care patient (Acute) Discharge planning issues (Acute) Myasthenia gravis (Chronic) Generalized weakness (Acute) Ptosis, right (Acute) Foot drop, right (Acute) Medical History Atrial fibrillation Bladder cancer Hypothyroidism Kidney stones Liver cancer Pancreatitis s/p cholecystitis/cholecystectomy with stone in pancreatic duct Type 2 diabetes mellitus Surgical History History of appendectomy History of bilateral inguinal hernia repair History of bladder surgery bladder ablation History of cardiac radiofrequency ablation for atrial fibrillation History of carpal tunnel release History of left knee replacement History of repair of rotator cuff Bilateral History of tonsillectomy Social History Smoking/Tobacco Use Status: Former Tobacco Use Smoking risk assessment performed?: Yes Alcohol Intake: never Drug use: Never Do you feel safe at home: Yes Do you feel safe in your relationship?: Yes Exam Narrative Exam Narrative: Pleasant talkative tall thin gentleman appearing younger than stated age. In fact his speech is a little pressured, which may be result of the steroids. His color is good and he moves easily. Pleasant and interactive. Follows commands. Oriented. Results Last Vital Signs Temp 36.4 C L 05/11/23 07:35 Pulse 56 L 05/11/23 07:35 Resp 20 05/11/23 07:35 BP 117/60 05/11/23 07:35 Pulse Ox 94 05/11/23 07:35 Labs 05/10/23 12:04 05/11/23 05:55 Labs: Laboratory Results - last 24 hr 05/10/23 05/10/23 05/10/23 12:04 12:04 12:30 WBC 7.00 RBC 4.05 L Hgb 13.1 L Hct 38.1 L MCV 94 MCH 32.3 MCHC 34.4 RDW 15.1 H Plt Count 184 MPV 9.9 Immature Gran % 0.7 Neutrophils % 88.4 Lymphocytes % 7.3 Monocytes % 3.4 Eosinophils % 0.1 Basophils % 0.1 Nucleated RBC % 0.0 Absolute Neutrophils 6.18 Absolute Lymphocytes 0.51 L Absolute Monocytes 0.24 Absolute Eosinophils 0.01 Absolute Basophils 0.01 VBG pH VBG pCO2 VBG pO2 VBG HCO3 VBG Total CO2 VBG O2 Saturation VBG Base Excess Sodium 139 Potassium 4.2 Chloride 103 Carbon Dioxide 20.9 L Anion Gap 15.1 H BUN 24 H Creatinine 1.1 Est GFR (CKD-EPI 2020) 67.02 Glucose 346 H Calcium 9.2 Magnesium 1.6 L Total Bilirubin 0.9 AST 101 H ALT 201 H Alkaline Phosphatase 310 H Troponin I 115 H* Total Protein 6.8 Albumin 2.8 L TSH 1.01 Urine Color Yellow Urine Clarity Cloudy Urine pH 5.5 Ur Specific [place] 1.025 Urine Protein 30 H Urine Ketones 15 H Urine Blood Large H Urine Nitrite Negative Urine Bilirubin Negative Urine Urobilinogen 0.2 Ur Leukocyte Esterase Negative Urine RBC 10-20 H Urine WBC 0-2 Ur Epithelial Cells Few Urine Crystals Urine Bacteria Few Urine Casts Negative Urine Mucus Negative Ur Culture Indicated? No Urine Glucose >=1000 H 05/10/23 05/10/23 05/11/23 13:52 13:52 05:55 WBC RBC Hgb Hct MCV MCH MCHC RDW Plt Count MPV Immature Gran % Neutrophils % Lymphocytes % Monocytes % Eosinophils % Basophils % Nucleated RBC % Absolute Neutrophils Absolute Lymphocytes Absolute Monocytes Absolute Eosinophils Absolute Basophils VBG pH 7.34 VBG pCO2 40 L VBG pO2 47 VBG HCO3 21 L VBG Total CO2 20 L VBG O2 Saturation 82 VBG Base Excess -4 L Sodium 143 Potassium 3.2 L D Chloride 109 H Carbon Dioxide 26.0 Anion Gap 8.0 BUN 23 H Creatinine 0.8 Est GFR (CKD-EPI 2020) 88.36 Glucose 74 Calcium 8.7 Magnesium 1.6 L Total Bilirubin 0.6 AST 75 H ALT 166 H Alkaline Phosphatase 277 H Troponin I 98 H* Total Protein 6.1 L Albumin 2.4 L TSH Urine Color Urine Clarity Urine pH Ur Specific [place] Urine Protein Urine Ketones Urine Blood Urine Nitrite Urine Bilirubin Urine Urobilinogen Ur Leukocyte Esterase Urine RBC Urine WBC Ur Epithelial Cells Urine Crystals Urine Bacteria Urine Casts Urine Mucus Ur Culture Indicated? Urine Glucose
--- NOTE | 2023-05-11 11:02 | PT.INIE ---
Date of service: 05/11/23 Time of Service: 10:27 PT Notes Visit Reasons: Dehydr, Metastatic Liver Cancer, Myasthenia Gravis Physical Therapy Inpatient Initial Evaluation Date: 05/11/2023 Referring Doctor: Karthik Santoyo MD PT Orders: PT CONSULT: Eval/Treat Precautions: Fall. Standard. Activity as tolerated. Patient Profile/Admitting Diagnosis: Patient is an 82-year-old male patient here for management of myasthenia gravis, stage IV hepatic carcinoma with lung metastases, R ptosis, type II DM, and R foot drop. Referred to PT to assess for mobility and need for AFO. PMHX: All Active Problems?(Updated 05/10/23 @ 18:57 by Karthik Santoyo MD) Discharge planning issues (Acute) Myasthenia gravis (Chronic) Generalized weakness (Acute) Ptosis, right (Acute) Foot drop, right (Acute) Medical History? Atrial fibrillation Bladder cancer Hypothyroidism Kidney stones Liver cancer Pancreatitis s/p cholecystitis/cholecystectomy with stone in pancreatic duct Type 2 diabetes mellitus Surgical History? History of appendectomy History of bilateral inguinal hernia repair History of bladder surgery bladder ablation History of cardiac radiofrequency ablation for atrial fibrillation History of carpal tunnel release History of left knee replacement History of repair of rotator cuff BilateralHistory of tonsillectomy Social History/Home Situation: Lives with in a private home with a flight of steps to the basement where his office is. Independent with all aspects of ADLs without an AD. No falls in the past 12 months. Equipment Owned/DME: None Subjective: Feels much better today. States that he is able to open his eye much better now. Complains of fatigue. Unsure that he will need a brace for his foot. Also reported increasing bending on the neck which affects his posture. Objective: General Observation: Resting in bed. IV through R UE. Minimal R eyelid droop/ptosis. R foot drop. Mental Status: Alert and oriented as to person, place, time, and purpose. Able to pay attention, focus, and respond appropriately. Pain: Denies Vital Signs: WNL as closley monitored by nursing staff ROM: Right Upper Extremity: Shoulder Flexion WFL. Shoulder abduction WFL. Elbow flexion WFL. Wrist flexion WFL. Functional opening and closing of hand WFL. Left Upper Extremity: Shoulder Flexion WFL. Shoulder abduction WFL. Elbow flexion WFL. Wrist flexion WFL. Functional opening and closing of hand WFL. Right Lower Extremity: Hip flexion WFL. Hip abduction WFL. Knee flexion WFL. Ankle dorsiflexion -10 degrees. Ankle plantarflexion WFL 10- 30 degrees. Left Lower Extremity: Hip flexion WFL. Hip abduction WFL. Knee flexion WFL. Ankle dorsiflexion WFL. Ankle plantarflexion WFL. Strength: Right Upper Extremity: Shoulder flexors 4/5. Shoulder abductors 4/5. Elbow flexors 5/5. Elbow extensors 5/5. School Laboratory Technician strong. Left Upper Extremity: Shoulder flexors 4/5. Shoulder abductors 4/5. Elbow flexors 5/5. Elbow extensors 5/5. School Laboratory Technician strong. Right Lower Extremity: Hip flexors 5/5. Hip abductors 5/5. Knee flexors 5/5. Knee extensors 5/5. Ankle dorsiflexors 3-/5. Ankle plantarflexors 4-/5. Left Lower Extremity: Hip flexors 5/5. Hip abductors 5/5. Knee flexors 5/5. Knee extensors 5/5. Ankle dorsiflexors 5/5. Ankle plantarflexors 5/5. Bed Mobility/Transfers: Supine to sit independent Sit to supine independent Sit to stand independent Stand to sit independent Bed to reclining chair independent Reclining chair to bed independent Gait: Instructed patient with level surface ambulation of 300 feet requiring supervision and IV pole management. Decreased dorsiflexion on the R but no significant foot slap. Stairs: Ascended and descended steps [id number] steps and [id number] steps while holding onto B rails with [id number] pattern. Advised patient that as long as he takes his time and slightly increase bending at the hip and knee, he should be able to avoid any risk of getting the R toes getting caught on the step. Balance: Static Sitting: Normal Dynamic Sitting: Normal Static Standing: Good Dynamic Standing: Good THERA EX: Ankle DF x 10, seated Chin tucks x 10, seated Special Tests: Mobility Limitations Standardized Measure [facility] 6 clicks Basic Mobility Inpatient Short Form: Raw Score: 24 CMS Score: 0% deficit Informed Consent/Education: Patient was instructed in purpose of PT consult and plan of care. Agreeable to proceed with established PT POC to achieve personal goals. Assessment: Patient has decreased dorsiflexion on the R which mildly impact gait pattern. Patient was advised that the amount of weakness is acute and not enough to increase fall risk, that strengthening exercises should be suffice at this time. He was taught exercises he can do to initiate strengthening for R dorsiflexors. Written HEP will be provided before discharge to home. Patient presents with clinical signs and symptoms consistent with current/admitting diagnoses that have resulted to mobility limitations, gait instability, generalized weakness, and overall ADL decline as demonstrated by the following impairment level findings: 1. Decreased strength to R ankle dorsiflexors 2. Impaired dynamic standing balance 3. Impaired activity tolerance due to MG and ongoing neoplastic activity 4. Limitation of joint range of motion in R ankle Impairments are contributing to the following functional limitations: 1. Increased completion time for mobility ADL performance Patient is assessed as a 95993 moderate complexity based on the following: History: 82-year-old male with past medical history as indicated above Examination: As above Presentation: Evolving Decision Makin moderate complexity Goals: Goals X1 week 1. Independent gait on level surface with use of no AD for at least 500 feet without report of pain nor dyspnea 2. Independent stair negotiation while holding onto B rails for at least 12 steps without report of pain nor dyspnea 3. Independent with home exercise program 4. Good static and dynamic standing balance/tolerance Plan of Care/Treatment Plan: -1-2x/day, 7 days/week x 1 week. -Plan of care has been reviewed with the PIPE TESTER providing the service under Physical Therapy direction. -Initiate Physical Therapy intervention for pain management as needed, strengthening, bed mobility, transfers, gait, stairs, balance training, and use of assistive device. - Emphasize R DF strengthening in [place] and [facility]. DISCHARGE RECOMMENDATIONS: [] Home with no services [] [] Home with services [specify] [X] Home with outpatient PT for continued rehabilitation of weak R dorsiflexors and establish a progressive strengthening program to minimize effect of MG. [] SNF for continued rehabilitation [] [] Client Services Director Care [] [] SNF versus LTC based on ability to participate and progress [] TREATMENT CODE/TIME: 87974 x 20 minutes, 23910 x 10 minutes beginning at 10:27 AM. Thank you for the opportunity to participate in the care of this patient. Patsy Fernandez PT, DPT, CLT [facility] [place], [place]
[2023-05-11] MEDS: Insulin Aspart 300 UNITS/3 ML PEN SC ×2 (12:10→17:41)
[2023-05-11] MEDS: Potassium Chloride 20 MEQ TABCR PO ×2 (12:12→21:23)
[2023-05-11] MEDS: MAGNESIUM SULFATE 4 GM/100 ML BAG IVPB (12:12)
--- NOTE | 2023-05-11 15:30 | W.PM.PROGNOT ---
Date of Service Date of service: 05/11/23 Time of Service: 15:31 Assessment and Plan Assessment and plan (1) Myasthenia gravis: Status: Chronic Assessment and plan: Neurology recommendations appreciated. Mestinon 60mg TID. He had side effects in the past when this was initiated (2010) but doesn't remember just what those were. He is agreeable to taking. Tolerating mestinon. He endorses improvement in generalized weakness. Ambulated in st[place] with PT. Still more weak than baseline. Feels short of air with eating and ambulation. MIF and MEF WNL. Cont prednisone 60mg daily. MIF/MEF testing BID. (2) Liver cancer: Status: Acute Assessment and plan: Dr Prado, pts oncologist, spoke with patient and myself today. (3) Ptosis, right: Status: Acute Assessment and plan: Previous surgery for eye weakness d/t myesthenia. (4) Type 2 diabetes mellitus: Assessment and plan: Elevated glucose related to prednisone. Cont home SS insulin with meals. Gave an initial dose of 15 units lantus. Glucose readings today were 85 and 156. Hold any further lantus at this time. (5) Foot drop, right: Status: Acute Assessment and plan: Potentially secondary to his known neuropathy vs Keytruda related. He walked with PT today and did not have significant foot droop that would require a PFO. Likely improvement d/t mestinon. Dr Jerez will f/u as outpt for NCS/EMG. (6) Atrial fibrillation: Assessment and plan: S/P ablation. Now in sinus rhythm. Not on AC d/t h/o bladder cancer. Will place on telemetry to monitor. (7) Discharge planning issues: Status: Acute Assessment and plan: Palliative consult appreciated. DNR/DNI Subjective Subjective Patient reports: no new complaints, feels better, bowel movement (A medium and a large liquid stool today.) and afebrile; denies shortness of breath Interval history since last seen: Continues to c/o reflux w/o acid brash if he bends forward at waist or lies supine too soon after eating. Exam Narrative Exam Narrative: Gen: Lying in bed. NAD. Conversant. HEENT: MMM, Right eye ptosis. CV: RRR Lungs: Clear. Normal WOB Abd: soft, NT, ND Exts: No edema. Neuro. A&O x 3. BUE 5/5 strength. No pronator drift. Psych: Normal gen appearance. Normal affect. Objective Last Vital Signs Temp 36.8 C 05/11/23 15:10 Pulse 75 05/11/23 15:10 Resp 16 05/11/23 15:10 BP 123/64 05/11/23 15:10 Pulse Ox 92 05/11/23 15:10 Laboratory Results - last 24 hr 05/11/23 05:55 Sodium 143 Potassium 3.2 L D Chloride 109 H Carbon Dioxide 26.0 Anion Gap 8.0 BUN 23 H Creatinine 0.8 Est GFR (CKD-EPI 2020) 88.36 Glucose 74 Calcium 8.7 Magnesium 1.6 L Total Bilirubin 0.6 AST 75 H ALT 166 H Alkaline Phosphatase 277 H Total Protein 6.1 L Albumin 2.4 L PAWSS Have you Been Recently Intoxicated or Drunk Within the Last 30 days?: No Have you Ever Experienced Previous Episodes of Alcohol Withdrawal?: No Have you ever Experienced Withdrawal Seizures?: No Have you ever Experienced Delirium Tremens(DT)s?: No Have you ever undergone Alcohol Rehabilitation Treatment (i.e, inpt ot outpatient treatment programs)?: No Have you ever Experienced Blackouts?: No Have you ever Combined Alcohol with other Downers within the last 90 days?: No Have you ever Combined Alcohol with any other Substance of Abuse during the last 90 days?: No Positive Blood Alcohol level on Presentation? [PCS.BAL]: No Evidence of Increased Autonomic Activity (i.e. HR>120, tremor, sweating, agitation, nausea)?: No Result: 0 Time Spent with Patient Time Spent with Patient: 25-34 minutes Time was spent: preparing to see the patient(eg.review tests), obtaining and/or reviewing separately otained hiistory, ordering medications,tests, procedures, referring, communicating with other health child adolescent care, indepentently interpreting results and counseling the patient
--- NOTE | 2023-05-11 16:04 | CHAPLAIN ---
Wagner was resting in bed when I visited. He is very pleasant and easily engages in a conversation. He said he is a people person who likes to talk. He has lung cancer and his second chemo treatment made him very tired and not feeling well. He doesn't like being tired because he is a go, go, go type of person and he's frustrated not being able to do all he likes to do. He shared some personal history about his family and work like. He considers the children of his close friend (sons, grandchildren and greatgrandchildren), to be his family. His is a retired nurse. Wagner said he has lived a good life and has had a lot of fun. He hopes to have more fun. He returned from a trip to [place] recently and would like to keep doing things like that. He also stated if this is it, I'm okay with that. His biggest worry is for his and how she would do on her own. Wagner said his , Sarai, is also a very active person. Wagner has some lifelong friends and clearly maintains and nurtures his friendships and relationships with family members. He was raced [employer] and attended [employer]. Later he had disagreements with the buddhist over control and other issues. Wagner says he continues to pray but doesn't not attend buddhist. We talked about relationships with God not requiring buddhist attendance. Wagner will meet with his oncologist next week to discuss further plans. He met with Dr. Rivero from [facility] yesterday.
[2023-05-11] MEDS: Enoxaparin 40 MG/0.4 ML SYR SC (17:41)
[2023-05-12 02:55] VITALS: BP 121/73; PULSE 62; RESP 16; TEMP 36.1; O2SAT 94
[2023-05-12] MEDS: Lactated Ringers 1,000 ML 200 ML IV (04:23)
[2023-05-12] MEDS: Levothyroxine 150 MCG TAB 300 MCG PO (05:34)
[2023-05-12 06:55] LABS: ALT 161 U/L (16-63); AST 79 U/L (15-37); Albumin 2.4 g/dL (3.4-5.0); Alkaline Phosphatase 278 U/L (46-116); BUN 20 mg/dL (7-18); CREATININE 0.8 mg/dL (0.70-1.30); Calcium 8.2 mg/dL (8.5-10.1); Chloride 107 mmol/L (98-107); Estimated GFR 88.36 (mL/min/1.73m2); Glucose 130 mg/dL (74-106); Potassium 3.6 mmol/L (3.5-5.1); Sodium 142 mmol/L (136-145); Total Protein 6.2 g/dL (6.4-8.2)
[2023-05-12 07:18] VITALS: PULSE 96
[2023-05-12 07:34] VITALS: BP 151/63; PULSE 83; RESP 20; TEMP 36.5; O2SAT 97
[2023-05-12 08:00] VITALS: BP 151/63; PULSE 83; O2SAT 97
[2023-05-12] MEDS: Aspirin 325 MG TAB PO (08:05)
[2023-05-12] MEDS: predniSONE 20 MG TAB 60 MG PO (08:06)
[2023-05-12] MEDS: Potassium Chloride 20 MEQ TABCR PO (08:06)
[2023-05-12] MEDS: dilTIAZem CD 120 MG CAPCR PO (08:06)
[2023-05-12] MEDS: Metoclopramide 10 MG TAB PO (12:02)
[2023-05-12 12:24] VITALS: PULSE 95
--- NOTE | 2023-05-12 14:15 | NUR.NOTE ---
Patient was resting in bed upon entering room. Patients was at bed side. I spoke with him to inform him of medications which were due. Patient stated he did not want to take anymore medication. He stated he just wanted to . I asked patient to explain to me why he felt this way. Patient stated he is ready to , that if I don't give him any medication to put him to sleep permanently that he will go home. States that he has been saving up on his Oxycodone at home & he will take them all so he can just sleep & never wake up again. I asked him if he has been planning this attempt for some time now & the patient just stated Im just ready to go. He then closed his eyes, laid down & asked me to just forget he ever mentioned it. senior group manager was informed as well as provider. Will continue to monitor & assess the patient. Nursing Note:
[2023-05-12] MEDS: LORazepam 0.5 MG TAB PO (15:05)
[2023-05-12 15:47] VITALS: BP 121/68; PULSE 98; RESP 16; TEMP 36.7; O2SAT 95
[2023-05-12] MEDS: Mirtazapine 15 MG TAB PO (22:22)
[2023-05-12] MEDS: Normal Saline Flush 10 ML SYR IJ (22:26)
--- NOTE | 2023-05-13 05:45 | NUR.NOTE ---
@1910 05/12/23 pt was laying in bed with CPAP on, this RN asked pt how are feeling pt started crying verbalizing that he wants to . pt stated that he does not want any medication except his sleeping medication. pt also added that he will not be going home as he has been saving some oxycodone to overdose on; this RN sat and talked with pt, providing emotional support and prayed for pt, Pt thanked this RN for listening and praying and reported it helped. pt slept through most of the night hourly rounding and safety maitained. Nursing Note:
[2023-05-13 06:10] VITALS: BP 128/78; PULSE 67; RESP 16; TEMP 35.8; O2SAT 94
[2023-05-13 08:00] VITALS: O2SAT 94
--- NOTE | 2023-05-13 10:05 | W.PM.PROGNOT ---
Date of Service Date of service: 05/12/23 Time of Service: 17:00 Assessment and Plan Assessment and plan (1) Myasthenia gravis: Status: Chronic Assessment and plan: He now desires no medications. The mestinon was going to be increased. MIF and MEF testing has been normal. Now stopped d/t his desire to stop treatments and medications. (2) Liver cancer: Status: Acute Assessment and plan: Dr Prado, pts oncologist, spoke with patient while hospitalized. Pt no longer wants to continue Keytruda. (3) Ptosis, right: Status: Acute Assessment and plan: Previous surgery for eye weakness d/t myesthenia. (4) Type 2 diabetes mellitus: Assessment and plan: Elevated glucose related to prednisone but he is going to no longer take. He was taking glipizide, metformin and Januvia at home. (5) Foot drop, right: Status: Acute Assessment and plan: Potentially secondary to his known neuropathy vs Keytruda related. He walked with PT and did not have significant foot droop that would require a PFO. Likely improvement d/t mestinon. (6) Atrial fibrillation: Assessment and plan: S/P ablation. Now in sinus rhythm. Not on AC d/t h/o bladder cancer. Has been on telemetry w/o significant events noted. (7) Discharge planning issues: Status: Acute Assessment and plan: Palliative consult appreciated. DNR/DNI He is now desiring hospice consult and termination of medical treatments other than those that would provide comfort and quality of life. Subjective Subjective Patient reports: diarrhea, shortness of breath (With ambulation and eating. ) and afebrile; denies still having pain Interval history since last seen: Mr Quiles voiced concerns about the number of medications he has to take, along with his ongoing reflux and loose stools. He had decided, in the AM, that he would like to stop treatments and medications. Later, when talking with him again with his present, he was more inclined to continue medications in the hope that stopping Keytruda would soon result in regaining his previous level of energy and activity. However, he then returned to the desire to stop medications. We spoke about hospice and he was interested. Exam Narrative Exam Narrative: Gen: Lying in bed. NAD. Conversant. HEENT: MMM, Right eye ptosis. CV: RRR Lungs: Clear. Normal WOB Abd: soft, NT, ND Exts: No edema. Neuro. A&O x 3. BUE 5/5 strength. No pronator drift. Vocal volume is diminished. Psych: Normal gen appearance. Normal affect. Objective Last Vital Signs Temp 35.8 C L 05/13/23 06:10 Pulse 67 05/13/23 06:10 Resp 16 05/13/23 06:10 BP 128/78 05/13/23 06:10 Pulse Ox 94 05/13/23 08:00 PAWSS Have you Been Recently Intoxicated or Drunk Within the Last 30 days?: No Have you Ever Experienced Previous Episodes of Alcohol Withdrawal?: No Have you ever Experienced Withdrawal Seizures?: No Have you ever Experienced Delirium Tremens(DT)s?: No Have you ever undergone Alcohol Rehabilitation Treatment (i.e, inpt ot outpatient treatment programs)?: No Have you ever Experienced Blackouts?: No Have you ever Combined Alcohol with other Downers within the last 90 days?: No Have you ever Combined Alcohol with any other Substance of Abuse during the last 90 days?: No Positive Blood Alcohol level on Presentation? [PCS.BAL]: No Evidence of Increased Autonomic Activity (i.e. HR>120, tremor, sweating, agitation, nausea)?: No Result: 0 Time Spent with Patient Time Spent with Patient: 35-49 minutes Time was spent: preparing to see the patient(eg.review tests), obtaining and/or reviewing separately otained hiistory, referring, communicating with other health career development manager, indepentently interpreting results, counseling the patient and care coordination
[2023-05-13 11:15] VITALS: BP 105/53; PULSE 70; RESP 18; TEMP 36.3; O2SAT 96
[2023-05-13] MEDS: LORazepam 0.5 MG TAB PO (13:34)
--- NOTE | 2023-05-13 13:56 | DSE_ITS ---
Date of service: 05/13/23 Time of Service: 13:56 DS: Diagnosis Discharge Diagnosis (1) Myasthenia gravis: Status: Chronic Asessment and Plan: H/O ocular MG dxd in 2010. Has had no symptoms of MG since then and not taking medication for MG. Now, given his progressive generalized weakness and decrease in vocal volume, it is likely that Keytruda has caused a resurfacing of MG. He was willing to restart mestinon; initially given 60mg TID and then increased to 120mg TID. He is going to enroll in hospice but will cont. this treatment to hopefully result in better mobility/strength. Serial MIF/MEF testing was normal. (2) Liver cancer: Status: Acute Asessment and Plan: Metastatic to lung. He spoke with Dr Prado, his oncologist, while hospitalized. He has made the decision to stop any further treatment of his cancer and enroll in hospice. (3) Ptosis, right: Status: Acute Asessment and Plan: MG (4) GERD (gastroesophageal reflux disease): Status: Chronic Asessment and Plan: He refluxes very frequently if he doesn't stay upright or if he bends forward at the waist after any oral intake; even a drink of water. No acid brash. He often notes that medications he has taken will be regurgitated. We discussed reglan but he is hesitant to start any more medications even though this is a very frustrating problem for him. (5) Type 2 diabetes mellitus: Asessment and Plan: He is going to continue Jardiance. Stopping metformin and glipizide. Oral intake has been diminished. (6) Foot drop, right: Status: Acute Asessment and Plan: Chronic. Evaluated by PT. No AFO/brace required. (7) SEJAL (obstructive sleep apnea): Status: Chronic Asessment and Plan: He faithfully wears his CPAP even while napping during the day. (8) Atrial fibrillation: Asessment and Plan: In sinus rhythm. He is planning to continue diltiazem. (9) Discharge planning issues: Status: Acute Asessment and Plan: He has made the decision to enroll in Hospice. I spoke with Dr Cooper. He will be enrolled tomorrow, Monday 05/[address] Cooper plans to see him the following day. Discharge Plan Disposition Patient Disposition: Home Condition: Stable Discharge Details Reason For Visit: Dehydr, Metastatic Liver Cancer, Myasthenia Gravis Admit Date/Time: 05/10/23 15:32 Admit Provider: Karthik Santoyo Attending Provider: Karthik Santoyo Primary Care Provider: Oleg Rios Hospital Course Hospital Course: This is an 82 yo male with a PMH of metastatic liver cancer (to lungs), afib s/p ablation, bladder cancer, myasthenia gravis, DM2 on insulin.? He presented with c/o weakness, difficulty swallowing and right eyelid weakness for several weeks.? He receives Keytruda immunotherapy for his liver cancer; last tx on April 20.? He endorsed some dyspnea on exertion.? No CP/cough, F/C.? No calf tenderness/swelling. He had ocular myasthenia in the past; 2010.?He recalls not tolerating mestinon then and thinks it may have caused GI upset but he wasn't sure. He was placed on prednisone 60mg daily by his oncologist. He was found to have a mildly elevated BUN and a creatinine mildly higher than his baseline.? The day prior to admission he had eaten little and had frequent loose stools after administration of contrast for a CT ab/pelvis on 05/09.? He took a dose of immodium and the stools are no longer loose and frequent. CT head w/o acute findings.? CBC normal.? Troponin 120 > 98. Neurology at [facility] consulted by ED provider.? Mestinon recommended.? Dr Bell consulted for neurology and also recommended mestinon and MRI with and w/o contrast.? This was also negative for acute findings.? His blood glucose has been elevated since initiation of prednisone.? Glucose of 346; given 6 units insulin and a dose of glargine insulin ordered. See Diagnosis Being admitted to hospice service on 05/14/23 Home Meds and New Rx's Prescriptions: New lorazepam 0.5 mg Tablet 0.5 mg PO QID PRN PRNQty: 15 0RF mirtazapine 15 mg Tablet 15 mg PO HS Qty: 30 0RF pyridostigmine bromide 60 mg tablet 120 mg PO TID Qty: 180 0RF Continued diltiazem HCl [Cartia XT] 120 MG capsule,extended release 24hr 120 mg PO BID levothyroxine [Synthroid] 137 MCG tablet 300 mcg PO DAILY triamcinolone acetonide 15 GM cream 1 applic Topical PRN PRN Creon 24,000-76,000 -120,000 unit Capsule,Delayed Release(Dr/Ec) 2 cap PO TID Patient Comments: 2 caps with each meal Rx Instructions: administer with meals and/or snacks prednisone 20 mg Tablet 60 mg PO DAILY Discontinued CINNAMON 1000 MG 1,000 mg PO DAILY B 12 1,000 mcg DAILY Claritin-D 24 Hour 1 EACH tablet extended release 24 hr 1 ea PO DAILY PRN Patient Comments: not taking cholecalciferol (vitamin D3) [D3 DOTS] 2,000 UNIT tablet 2,000 unit PO DAILY simvastatin [Zocor] 20 MG tablet 20 mg PO DAILY metformin [Glucophage] 1,000 MG tablet 1,000 mg PO BID Centrum Silver 1 EACH tablet 1 tab PO DAILY omega [id number]-[id number]-fish oil 1 EACH capsule 1,000 mg PO DAILY chlorpheniramine maleate 4 MG tablet 8 mg PO DAILY pseudoephedrine HCl [Sudafed 12 Hour] 120 MG tablet extended release 120 mg PO DAILY aspirin 325 MG tablet 325 mg PO DAILY Discharge Instructions Instructions: Hospice Care (GEN) Stand Alone Forms: Nursing Discharge Form Referrals: Oleg Rios [Primary Care Provider] - (Please call Sunday to make a follow up appointment ) Activity:: Activity as Tolerated Equipment/Supplies:: No Equipment Needed Diet:: As Tolerated Discharge Orders Discharge Orders: Discharge Order (Routine); Ordered 05/13/23 Ordered By: Karthik Santoyo DS: Summary Time Spent with Patient providing and/or coordinating discharge services: Greater than 30 minutes Status at Discharge Functional status at discharge: independent ambulation Overall status at discharge: patient is not back to baseline Mental Status: mental status grossly normal Speech and Movement: speech clear Mood: euthymic mood Affect: anxious affect Exam Narrative Exam Narrative: Gen: Lying in bed. NAD. Conversant after removing CPAP mask. HEENT: MMM, Right eye ptosis. CV: RRR Lungs: Clear. Normal WOB Abd: soft, NT, ND Exts: No edema. Neuro. A&O x 3. BUE 5/5 strength. No pronator drift. Vocal volume is diminished. Psych: Normal gen appearance. Normal affect. Psych Mental Status: mental status grossly normal Speech and Movement: speech clear Mood: euthymic mood Affect: anxious affect DS: Data Vitals/I&O Vitals and I&O: Vital Signs Temperature 36.3 C L 05/13/23 11:15 Temperature Source Tympanic 05/13/23 11:15 Pulse 70 05/13/23 11:15 Pulse Rhythm Irregular 05/13/23 08:00 Pulse 90 05/10/23 17:01 Respiratory Rate 18 05/13/23 11:15 Respiratory Effort Normal, Non-Labored 05/13/23 08:00 Respiratory Depth Normal 05/13/23 08:00 Respiratory Pattern Normal 05/13/23 08:00 Blood Pressure 105/53 L 05/13/23 11:15 Blood Pressure Mean 100 05/10/23 17:00 Pulse Oximetry 96 05/13/23 11:15 Oxygen Delivery Method Room Air 05/13/23 11:15 Oxygen Flow Rate 0 05/13/23 11:15 Fraction of Inspired Oxygen (FIO2) 21 05/10/23 17:55 Pain Level 0 05/13/23 11:15 Comment left abdomen 05/10/23 11:44 Intake & Output 05/12/23 05/13/23 05/13/23 23:59 11:59 23:59 Intake Total 999 250 / 250 Balance 1000 / 1335 250 / 250 Intake: IV 999 Oral 240 / 240 Other: Urine Appearance Clear Sediment Voiding Methods Toilet Toilet PFSH All Active Problems (Updated 05/13/23 @ 14:22 by Karthik Santoyo MD) GERD (gastroesophageal reflux disease) (Chronic) SEJAL (obstructive sleep apnea) (Chronic) Elevated troponin (Acute) Liver cancer (Acute) Advanced care planning/counseling discussion (Acute) Palliative care patient (Acute) Discharge planning issues (Acute) Myasthenia gravis (Chronic) Generalized weakness (Acute) Ptosis, right (Acute) Foot drop, right (Acute) Medical History Atrial fibrillation Bladder cancer Hypothyroidism Kidney stones Pancreatitis s/p cholecystitis/cholecystectomy with stone in pancreatic duct Type 2 diabetes mellitus Surgical History History of appendectomy History of bilateral inguinal hernia repair History of bladder surgery bladder ablation History of cardiac radiofrequency ablation for atrial fibrillation History of carpal tunnel release History of left knee replacement History of repair of rotator cuff Bilateral History of tonsillectomy Social History Smoking/Tobacco Use Status: Former Tobacco Use Smoking risk assessment performed?: Yes Alcohol Intake: never Drug use: Never Do you feel safe at home: Yes Do you feel safe in your relationship?: Yes Time Spent with Patient Time Spent with Patient: 45-69 minutes Time was spent: preparing to see the patient(eg.review tests), obtaining and/or reviewing separately otained hiistory, referring, communicating with other health coronary care unit nurse, indepentently interpreting results, counseling the patient and care coordination
--- NOTE | 2023-05-17 16:44 | INDS_ITS ---
Date of service: 05/14/23 PT Notes Visit Reasons: Dehydr, Metastatic Liver Cancer, Myasthenia Gravis Physical Therapy Inpatient Discharge Summary Date: 05/14/2023 Date of Discharge: 05/11/2023 only This is a clinical summary of care provided for the duration of dates listed above. No charge was made in the completion of this documentation. Referring Doctor:? Karthik Santoyo,? PT Orders: PT CONSULT: Eval/Treat Precautions: Fall. Standard. Activity as tolerated. Patient Profile/Admitting Diagnosis:? Patient is an 82-year-old male patient here for management of myasthenia gravis,? 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 R ptosis,? type II DM,? and R foot drop.? Referred to PT to assess for mobility and need for AFO. PMHX: All Active Problems?(Updated 05/10/23 @ 18:57 by Karthik Santoyo MD) Discharge planning issues (Acute) Myasthenia gravis (Chronic) Generalized weakness (Acute) Ptosis, right (Acute) Foot drop, right (Acute) Medical History? Atrial fibrillation Bladder cancer Hypothyroidism Kidney stones Liver cancer Pancreatitis s/p cholecystitis/cholecystectomy with stone in pancreatic duct Type 2 diabetes mellitus Surgical History? History of appendectomy History of bilateral inguinal hernia repair History of bladder surgery bladder ablation History of cardiac radiofrequency ablation for atrial fibrillation History of carpal tunnel release History of left knee replacement History of repair of rotator cuff BilateralHistory of tonsillectomy Social History/Home Situation: Lives with in a private home with a flight of steps to the basement where his office is.? Independent with all aspects of ADLs without an AD.? No falls in the past 12 months. Equipment Owned/DME: None Subjective: NT. See most recent WET MILLING WHEEL OPERATOR notes. Objective: General Observation: NT. See most recent WET MILLING WHEEL OPERATOR notes. Mental Status: NT. See most recent WET MILLING WHEEL OPERATOR notes. Pain: NT. See most recent WET MILLING WHEEL OPERATOR notes. Vital Signs: NT. See most recent WET MILLING WHEEL OPERATOR notes. ROM: Right Upper Extremity: ? Shoulder Flexion WFL. Shoulder abduction WFL. Elbow flexion WFL. Wrist flexion WFL. Functional opening and closing of hand WFL. Left Upper Extremity:? Shoulder Flexion WFL. Shoulder abduction WFL. Elbow flexion WFL. Wrist flexion WFL. Functional opening and closing of hand WFL. Right Lower Extremity: Hip flexion WFL. Hip abduction WFL. Knee flexion WFL. Ankle dorsiflexion -10 degrees. Ankle plantarflexion WFL 10- 30 degrees. Left Lower Extremity: Hip flexion WFL. Hip abduction WFL. Knee flexion WFL. Ankle dorsiflexion WFL. Ankle plantarflexion WFL. Strength: Right Upper Extremity: Shoulder flexors 4/5. Shoulder abductors 4/5. Elbow flexors 5/5. Elbow extensors 5/5. Rheumatology Specialist strong. Left Upper Extremity: Shoulder flexors 4/5. Shoulder abductors 4/5. Elbow flexors 5/5. Elbow extensors 5/5. Rheumatology Specialist strong. Right Lower Extremity: Hip flexors 5/5. Hip abductors 5/5. Knee flexors 5/5. Knee extensors 5/5. Ankle dorsiflexors 3-/5. Ankle plantarflexors 4-/5. Left Lower Extremity: Hip flexors 5/5. Hip abductors 5/5. Knee flexors 5/5. Knee extensors 5/5. Ankle dorsiflexors 5/5. Ankle plantarflexors 5/5. Bed Mobility/Transfers: Supine to sit independent Sit to supine independent Sit to stand independent Stand to sit independent Bed to reclining chair independent Reclining chair to bed independent Gait: Instructed patient with level surface ambulation of 300 feet requiring supervision and IV pole management. Decreased dorsiflexion on the R but no significant foot slap.? Stairs: Ascended and descended steps [id number] steps and [id number]-[id number] steps while holding onto B rails with [id number] pattern.? Advised patient that as long as he takes his time and slightly increase bending at the hip and knee,? he should be able to avoid any risk of getting the R toes getting caught on the step. Balance: Static Sitting: Normal Dynamic Sitting: Normal Static Standing: Good Dynamic Standing: Good THERA EX: Ankle DF x 10,? seated Chin tucks x 10,? seated Assessment: Patient has decreased dorsiflexion on the R which mildly impact gait pattern.? Patient was advised that the amount of weakness is acute and not enough to increase fall risk,? that strengthening exercises should be suffice at this time.? He was taught exercises he can do to initiate strengthening for R dorsiflexors.? Written HEP will be provided before discharge to home.? Patient presents with clinical signs and symptoms consistent with current/admitting diagnoses that have resulted to mobility limitations, gait instability, generalized weakness, and overall ADL decline as demonstrated by the following impairment level findings: 1.? Decreased strength to R ankle dorsiflexors 2.? Impaired dynamic standing balance 3.? Impaired activity tolerance due to MG and ongoing neoplastic activity 4.? Limitation of joint range of motion in R ankle Impairments are contributing to the following functional limitations: 1.? Increased completion time for mobility ADL performance Goals: Goals X1 week 1. Independent gait on level surface with use of no AD for at least 500 feet without report of pain nor dyspnea MET 2. Independent stair negotiation while holding onto B rails for at least 12 steps without report of pain nor dyspnea MET 3. Independent with home exercise program MET 4. Good static and dynamic standing balance/tolerance MET DISCHARGE RECOMMENDATIONS: [] ? Home with no services [] [] ? Home with services [specify] [X] ? Home with outpatient PT for continued rehabilitation of weak R dorsiflexors and establish a progressive strengthening program to minimize effect of MG. [] ? SNF for continued rehabilitation [] [] ? Telephone Sales Agent Care [] [] ? SNF versus LTC based on ability to participate and progress [] TREATMENT CODE/TIME: NC Thank you for the opportunity to participate in the care of this patient. Patsy Fernandez PT, DPT, [facility] [place], [place]
== END 2023-05-13 14:47 | disposition home or self-care (01) ==
LOC: ER 16:03 → MS 17:43
PROVIDERS: Admitting Provider Family Medicine; Emergency Provider Physician Assistant; PCP Family Medicine; Visit Provider Family Medicine
DX: G70.00 Myasthenia gravis without (acute) exacerbation (principal); H02.401 Unspecified ptosis of right eyelid; M21.371 Foot drop, right foot; I48.91 Unspecified atrial fibrillation; K21.9 Gastro-esophageal reflux disease without esophagitis; G47.33 Obstructive sleep apnea (adult) (pediatric); C22.8 Malignant neoplasm of liver, primary, unspecified as to type; C78.00 Secondary malignant neoplasm of unspecified lung; Z79.60 Long term (current) use of unspecified immunomodulators and immunosuppressants; R13.10 Dysphagia, unspecified; Z85.51 Personal history of malignant neoplasm of bladder; E03.9 Hypothyroidism, unspecified; I10 Essential (primary) hypertension; E78.5 Hyperlipidemia, unspecified; C78.6 Secondary malignant neoplasm of retroperitoneum and peritoneum; R19.7 Diarrhea, unspecified; K74.69 Other cirrhosis of liver; Z66 Do not resuscitate; R53.1 Weakness; Z96.652 Presence of left artificial knee joint; E11.40 Type 2 diabetes mellitus with diabetic neuropathy, unspecified; E11.65 Type 2 diabetes mellitus with hyperglycemia; T38.0X5A Adverse effect of glucocorticoids and synthetic analogues, initial encounter
CPT/HCPCS: 36415; 70553; 80053; 82805; 82962; 93005; 97110; 97162; 97530; 99223; 99285; J1650; 70450; 71046; 81003; 81015; 83735; 84443; 84484; 85025; 93010; 99222; 99232; 99239; G0378; J3475; J7512

== ENCOUNTER 2023-05-15 01:59 | Outpatient (CLI) | payer MEDICARE, OTHER, SELFPAY ==
--- NOTE | 2023-05-13 16:19 | CMDISCH_ITS ---
Date of service: 05/13/23 Time of Service: 16:19 LACE Index Scoring Tool Questions: Length of Stay (in days): 3 Was the patient admitted via the E.D.?: Yes Comorbidities: Any Tumor and Liver or Renal Disease E.D. Visits: 3 Answers: Total Score: 14 Risk of Readmission: High Risk Care Management Discharge Plan Reason for Hospitalization: Dehydration, metastatic liver CA, myasthenia gravis Discharge Plan: Wagner is advocating for returning home, he has made the decision to stop any further treatment of his cancer and enroll in hospice. CM coordinated Hospice consult through [facility] with TECHNOLOGY RESOURCE TEACHER help; Dr. Cooper discussed with Dr. Santoyo who discharged Wagner to follow up with [facility] and Hospice. He will transport via private vehicle with family. Patient/Family Education Needs: Review discharge instructions, discuss Ask Me Three Services Needed at Discharge: Home Health Care Services ([facility]: Hospice)
[2023-05-15 07:48] LABS: Abs Immature Grans 0.09 10^3/uL (0.0-0.06); Absolute Basophil Count 0.03 10^3/uL (0.0-0.2); Absolute Eosinophil Count 0.05 10^3/uL (0.0-0.7); Absolute Lymphocyte Count 1.72 10^3/uL (1.2-3.4); Absolute Neutrophil Count 7.21 10^3/uL (1.2-6.7); Basophils % 0.3; Eosinophils % 0.5; HCT 43.6 % (40.0-50.0); HGB 14.9 g/dL (13.5-17.5); Immature Grans % 0.9; Lymphocytes % 17.6; MCH 32.7 pg (27.0-33.0); MCHC 34.2 % (32.0-36.0); MCV 96 fL (80-95); MPV 9.9 fL (8.0-11.0); Monocytes % 7.1; Neutrophils % 73.6; Platelet Count 179 10^3/uL (130-400); RBC 4.56 10^6/uL (4.36-5.78); RDW 15.6 % (11.8-14.1); RDW-SD 54.4 fL
[2023-05-15 08:08] LABS: ALT 204 U/L (16-63); AST 97 U/L (15-37); Albumin 2.7 g/dL (3.4-5.0); Alkaline Phosphatase 386 U/L (46-116); Anion Gap 11.7 mmol/L (3-11); BUN 21 mg/dL (7-18); CO2 28.3 mmol/L (21.0-32.0); CREATININE 1.1 mg/dL (0.70-1.30); Calcium 8.8 mg/dL (8.5-10.1); Chloride 106 mmol/L (98-107); Estimated GFR 67.02 (mL/min/1.73m2); Glucose 196 mg/dL (74-106); Potassium 3.3 mmol/L (3.5-5.1); Sodium 146 mmol/L (136-145); TSH 5.06 uIU/mL (0.36-3.74)
[2023-05-16 09:04] LABS: AFP Tumor Marker 64.7 ng/mL (<8.1)
== END 2023-05-15 02:00 | disposition home or self-care (01) ==
LOC: LBO 01:59
PROVIDERS: PCP Family Medicine; Visit Provider Internal Medicine Hematology & Oncology
DX: Z79.899 Other long term (current) drug therapy (principal); C22.0 Liver cell carcinoma
CPT/HCPCS: 36415; 80053; 82105; 84439; 84443; 85025

== ENCOUNTER → 2023-05-17 13:36 | Outpatient (BNVA) | payer MEDICARE, OTHER, SELFPAY | PROVIDERS: PCP Family Medicine; Referring Provider Family Medicine; Visit Provider Psychiatry & Neurology Neurology | DX: G70.00 Myasthenia gravis without (acute) exacerbation (principal); R53.1 Weakness; H02.401 Unspecified ptosis of right eyelid; M21.371 Foot drop, right foot; I10 Essential (primary) hypertension | CPT/HCPCS: 99214 ==

== ENCOUNTER 2023-05-18 01:43 | Outpatient (CLI) | payer MEDICARE, OTHER, SELFPAY ==
[2023-05-18 12:29] LABS: Abs Immature Grans 0.12 10^3/uL (0.0-0.06); Absolute Basophil Count 0.02 10^3/uL (0.0-0.2); Absolute Monocyte Count 0.37 10^3/uL (0.1-0.8); Absolute Neutrophil Count 10.68 10^3/uL (1.2-6.7); Basophils % 0.2; HCT 38.7 % (40.0-50.0); HGB 13.3 g/dL (13.5-17.5); Lymphocytes % 3.9; MCH 32.2 pg (27.0-33.0); MCHC 34.4 % (32.0-36.0); MCV 94 fL (80-95); MPV 9.9 fL (8.0-11.0); Monocytes % 3.2; Neutrophils % 91.7; Platelet Count 124 10^3/uL (130-400); RBC 4.13 10^6/uL (4.36-5.78); RDW 15.5 % (11.8-14.1); RDW-SD 52.9 fL; WBC 11.65 10^3/uL (4.4-10.8)
[2023-05-18 12:30] LABS: Absolute Lymphocyte Count 0.45 10^3/uL (1.2-3.4)
[2023-05-18 13:02] LABS: ALT 161 U/L (16-63); AST 88 U/L (15-37); Albumin 2.6 g/dL (3.4-5.0); Alkaline Phosphatase 353 U/L (46-116); Anion Gap 11.5 mmol/L (3-11); BUN 27 mg/dL (7-18); Bilirubin, Total 1.3 mg/dL (0.2-1.0); CO2 24.5 mmol/L (21.0-32.0); CREATININE 1.2 mg/dL (0.70-1.30); Calcium 8.2 mg/dL (8.5-10.1); Chloride 102 mmol/L (98-107); Estimated GFR 60.38 (mL/min/1.73m2); Glucose 426 mg/dL (74-106); Potassium 3.5 mmol/L (3.5-5.1); Sodium 138 mmol/L (136-145); TSH 3.14 uIU/mL (0.36-3.74); Total Protein 6.3 g/dL (6.4-8.2)
[2023-05-21 09:23] LABS: AFP Tumor Marker 60.7 ng/mL (<8.1)
[2023-05-21 14:02] LABS: G6PD Enzyme Activity 8.3 U/g Hb (8.0 - 11.9)
== END 2023-05-18 01:44 | disposition home or self-care (01) ==
LOC: LBO 01:47
PROVIDERS: PCP Family Medicine; Visit Provider Internal Medicine Hematology & Oncology
DX: Z79.899 Other long term (current) drug therapy (principal); C22.0 Liver cell carcinoma
CPT/HCPCS: 36415; 80053; 82955; 82105; 84439; 84443; 85025

== ENCOUNTER 2023-05-20 17:16 | Inpatient (IN) | payer MEDICARE, OTHER, SELFPAY ==
[2023-05-20] VITALS (43 sets, daily range): BP systolic 109–136; BP diastolic 50–115; PULSE 49–98; RESP 18–20; TEMP 36.5–36.8; O2SAT 93–99
--- NOTE | 2023-05-20 17:15 | RT.EKG_ITS ---
APPROVED REPORT Exam: Resting ECG Reason for Exam: SOB Patient Location: E HR:119 bpm ECG Measurements Heart Rate 119 AXIS MN 73 P 0 QRSd 73 QRS 55 QT 355 T 69 QTc 500 Conclusion Sinus tachycardia...rate> 99 Multiform ventricular premature complexes...short R-R, variable morphology
[2023-05-20 18:00] LABS: Abs Immature Grans 0.05 10^3/uL (0.0-0.06); Absolute Basophil Count 0.01 10^3/uL (0.0-0.2); Absolute Lymphocyte Count 0.43 10^3/uL (1.2-3.4); Absolute Monocyte Count 0.38 10^3/uL (0.1-0.8); Basophils % 0.1; HCT 41.8 % (40.0-50.0); HGB 14.3 g/dL (13.5-17.5); Immature Grans % 0.6; Lymphocytes % 5.2; MCH 32.4 pg (27.0-33.0); MCHC 34.2 % (32.0-36.0); MCV 95 fL (80-95); MPV 10.2 fL (8.0-11.0); Monocytes % 4.6; Neutrophils % 89.5; Platelet Count 140 10^3/uL (130-400); RBC 4.41 10^6/uL (4.36-5.78); RDW 15.8 % (11.8-14.1); RDW-SD 55.2 fL; WBC 8.27 10^3/uL (4.4-10.8)
[2023-05-20 18:14] LABS: ALT 160 U/L (16-63); AST 106 U/L (15-37); Albumin 2.5 g/dL (3.4-5.0); Alkaline Phosphatase 398 U/L (46-116); Anion Gap 10.5 mmol/L (3-11); BUN 22 mg/dL (7-18); Bilirubin, Total 1.2 mg/dL (0.2-1.0); CO2 25.5 mmol/L (21.0-32.0); CREATININE 1.1 mg/dL (0.70-1.30); Calcium 8.2 mg/dL (8.5-10.1); Chloride 105 mmol/L (98-107); Estimated GFR 67.02 (mL/min/1.73m2); Glucose 245 mg/dL (74-106); Magnesium 1.7 mg/dL (1.8-2.4); Potassium 3.8 mmol/L (3.5-5.1); Sodium 141 mmol/L (136-145); Total Protein 6.3 g/dL (6.4-8.2)
--- NOTE | 2023-05-20 18:49 | HPE_ITS ---
Date of service: 05/20/23 Time of Service: 18:49 Assessment and Plan Assessment and plan (1) Dehydration: Status: Acute Assessment and plan: from vomiting, requesting IV hydration. referred to observation. no pain or nausea, ? GERD so will add bid protonix, consider swallow evaluation, possible obstruction or pathology. has been seen by palliative, re-consult when available to discuss goals of care, extent of work up, etc. (2) Myasthenia gravis: Status: Chronic Assessment and plan: currently on prednisone just decreased from 60 mg to 40 mg. will continue at this dose MIF and MEF testing has been normal. Now stopped d/t his desire to stop treatments and medications. (3) Liver cancer: Status: Acute Assessment and plan: followed by Dr Prado, has appointment coming up this sunday. last dose of Keytruda was april 20. (4) Ptosis, right: Status: Chronic Assessment and plan: Previous surgery for eye weakness d/t myesthenia. at baseline (5) Type 2 diabetes mellitus: Assessment and plan: Elevated glucose related to prednisone continue glipizide, metformin and Januvia at home. blood sugar checks ac/hs with coverage as needed (6) Foot drop, right: Status: Acute Assessment and plan: Potentially secondary to his known neuropathy vs Keytruda related. (7) Atrial fibrillation: Assessment and plan: S/P ablation. Now in sinus rhythm. Not on AC d/t h/o bladder cancer. rate controlled (8) Discharge planning issues: Status: Acute Assessment and plan: Palliative saw him last admission DNR/DNI discussed with DR Chaudhary History of Present Illness History of Present Illness Chief Complaint: dehydration Narrative: This is an 82-year-old male patient with history of myasthenia's gravis liver cancer with metastases followed by Dr. Prado previously on Keytruda last dose was April 20 recent admission for exacerbation of myasthenia's gravis last month. States that over the past couple days he has been unable to take any oral intake everything just comes up he denies any nausea he denies any abdominal pain. He feels extremely weak. Review of Systems All systems reviewed & are unremarkable except as noted in HPI and below PFSH All Active Problems (Updated 05/22/23 @ 14:27 by Rachel Tejada NP) Discharge planning issues (Acute) Discharge planning issues (Acute) DVT prophylaxis (Acute) Regurgitation of stomach contents (Acute) Dehydration (Acute) GERD (gastroesophageal reflux disease) (Chronic) SEJAL (obstructive sleep apnea) (Chronic) Liver cancer (Acute) Advanced care planning/counseling discussion (Acute) Myasthenia gravis (Chronic) Generalized weakness (Acute) Ptosis, right (Chronic) Foot drop, right (Acute) Medical History Atrial fibrillation Bladder cancer Hypothyroidism Kidney stones Palliative care patient Pancreatitis s/p cholecystitis/cholecystectomy with stone in pancreatic duct Type 2 diabetes mellitus Surgical History History of appendectomy History of bilateral inguinal hernia repair History of bladder surgery bladder ablation History of cardiac radiofrequency ablation for atrial fibrillation History of carpal tunnel release History of left knee replacement History of repair of rotator cuff Bilateral History of tonsillectomy Social History Smoking/Tobacco Use Status: Former Tobacco Use Quit Date: 06/15/91 Smoking risk assessment performed?: Yes Alcohol Intake: never Drug use: Never Housing: apartment Do you feel safe at home: Yes Do you feel safe in your relationship?: Yes Meds Allergies and Home Medications Allergies Allergy/AdvReac Type Severity Reaction Status Date / Time Cephalosporins Allergy Intermediate Skin Rash Verified 05/20/23 18:11 codeine [Codeine] Allergy Mild Nausea Unverified 05/17/23 13:40 hydromorphone HCl Allergy Mild Verified 05/20/23 18:11 [From Dilaudid] Sulfa (Sulfonamide Allergy Mild Skin Rash Verified 05/20/23 18:11 Antibiotics) Home Medications Medication Instructions Recorded Confirmed Type levothyroxine 137 mcg tablet 300 mcg PO DAILY 03/28/13 05/20/23 History (Synthroid) triamcinolone acetonide 0.1 % 1 applic topical PRN PRN 03/28/13 05/20/23 History topical cream diltiazem HCl 120 mg 120 mg PO BID 03/04/14 05/20/23 History capsule,extended release 24 hr (Cartia XT) [id number] 2 cap PO TID 05/10/23 05/20/23 History 24,000-76,000-120,000 unit capsule,delayed rel (Creon) prednisone 20 mg tablet 40 mg PO DAILY 05/10/23 05/20/23 History pyridostigmine bromide 60 mg tablet 120 mg PO TID #180 tabs 05/13/23 05/20/23 Rx levocetirizine 5 mg tablet (Xyzal) 5 mg PO DAILY 05/17/23 05/20/23 History mycophenolate mofetil 500 mg tablet 1,000 mg PO BID 05/17/23 05/20/23 History tamsulosin 0.4 mg capsule 0.4 mg PO BID 05/17/23 05/20/23 History levocetirizine 5 mg tablet (Xyzal) 5 mg PO QPM 05/20/23 05/20/23 History sitagliptin phosphate 100 mg 100 mg PO QPM 05/20/23 05/20/23 History tablet (Januvia) Exam Const General: cooperative, no acute distress, frail appearing and ill appearing chronically Nutritional Appearance: thin Orientation: alert, awake and oriented x3 HENMT Head: normal to inspection, normocephalic and atraumatic Mouth: moist mucous membranes abnormal (dry) Eyes General: appearance normal, both eyes and all related structures Neck Neck: normal visual inspection, full ROM and no JVD Resp Effort & Inspection: normal respiratory effort and able to speak in complete sentences Cardio Rate: regular rate Rhythm: regular rhythm Skin General skin exam: no rashes or lesions noted Neuro General: patient alert, patient awake and patient oriented x3 Motor: muscle tone normal throughout Extrem General: full ROM Psych Appearance: grossly normal Affect: normal affect Results Labs 05/22/23 07:03 05/22/23 07:03 Labs: Laboratory Results - last 24 hr 05/20/23 05/20/23 17:52 17:52 WBC 8.27 RBC 4.41 Hgb 14.3 Hct 41.8 MCV 95 MCH 32.4 MCHC 34.2 RDW 15.8 H Plt Count 140 MPV 10.2 Immature Gran % 0.6 Neutrophils % 89.5 Lymphocytes % 5.2 Monocytes % 4.6 Eosinophils % 0.0 Basophils % 0.1 Nucleated RBC % 0.0 Absolute Neutrophils 7.40 H Absolute Lymphocytes 0.43 L Absolute Monocytes 0.38 Absolute Eosinophils 0.00 Absolute Basophils 0.01 Sodium 141 Potassium 3.8 Chloride 105 Carbon Dioxide 25.5 Anion Gap 10.5 BUN 22 H Creatinine 1.1 Est GFR (CKD-EPI 2020) 67.02 Glucose 245 H Calcium 8.2 L Magnesium 1.7 L Total Bilirubin 1.2 H AST 106 H ALT 160 H Alkaline Phosphatase 398 H Total Protein 6.3 L Albumin 2.5 L Last Vital Signs Pulse 98 H 05/20/23 18:31 Resp 18 05/20/23 17:18 BP 119/69 05/20/23 18:31 Pulse Ox 97 05/20/23 18:31 Time Spent Time spent with Patient: 40-54 minutes Time was spent: preparing to see the patient(eg.review tests), obtaining and/or reviewing separately otained hiistory, ordering medications,tests, procedures, referring, communicating with other health manager wound care, indepentently interpreting results, counseling the patient and care coordination
[2023-05-20] MEDS: LORazepam 1 MG TAB PO (18:52)
--- NOTE | 2023-05-20 19:08 | W.ED.GENAD ---
Discharge Plan Disposition Patient Disposition: Admit to [facility] Condition: Stable Discharge Details Clinical Impression: Dehydration Admit Date/Time: 05/21/23 18:10 Admit Provider: Raj Chaudhary Attending Provider: Raj Chaudhary Primary Care Provider: Oleg Rios ED Provider: Rachel Tejada Discharge Data Discharge Date/Time-TO BE ENTERED AT DEPARTURE: 05/20/23 20:28 Medical Decision Making Medical Records Medical records reviewed: Yes I reviewed the patient's medical records. Lab Data Lab results reviewed: Yes I reviewed the patient's lab results. HPI General Mode of arrival: EMS. Date/Time Provider Initiated Documentation: 05/20/23 17:23. Limitations to Documentation: no limitations. Information obtained by: patient. HPI Narrative: this is an 82year old man, complex medical history including myasthenia gravis, SEJAL, new liver cancer with mets, GERD who presents with lack of ability to take PO with vomiting Related Data Home Medications Medication Instructions Recorded Confirmed levothyroxine 137 mcg tablet 300 mcg PO DAILY 03/28/13 05/20/23 (Synthroid) triamcinolone acetonide 0.1 % 1 applic topical PRN PRN 03/28/13 05/20/23 topical cream diltiazem HCl 120 mg 120 mg PO BID 03/04/14 05/20/23 capsule,extended release 24 hr (Cartia XT) [id number] 2 cap PO TID 05/10/23 05/20/23 24,000-76,000-120,000 unit capsule,delayed rel (Creon) prednisone 20 mg tablet 40 mg PO DAILY 05/10/23 05/20/23 pyridostigmine bromide 60 mg tablet 120 mg PO TID #180 tabs 05/13/23 05/20/23 levocetirizine 5 mg tablet (Xyzal) 5 mg PO DAILY 05/17/23 05/20/23 mycophenolate mofetil 500 mg tablet 1,000 mg PO BID 05/17/23 05/20/23 tamsulosin 0.4 mg capsule 0.4 mg PO BID 05/17/23 05/20/23 levocetirizine 5 mg tablet (Xyzal) 5 mg PO QPM 05/20/23 05/20/23 sitagliptin phosphate 100 mg 100 mg PO QPM 05/20/23 05/20/23 tablet (Januvia) Previous Rx's Medication Instructions Recorded pyridostigmine bromide 60 mg tablet 120 mg PO TID #180 tabs 05/13/23 Allergies Allergy/AdvReac Type Severity Reaction Status Date / Time Cephalosporins Allergy Intermediate Skin Rash Verified 05/20/23 18:11 codeine [Codeine] Allergy Mild Nausea Unverified 05/17/23 13:40 hydromorphone HCl Allergy Mild Verified 05/20/23 18:11 [From Dilaudid] Sulfa (Sulfonamide Allergy Mild Skin Rash Verified 05/20/23 18:11 Antibiotics) General Stated Complaint: Nausea/Vomit/Diar NAFISA: 3 Review of Systems All systems reviewed & are unremarkable except as noted in HPI and below PFSH All Active Problems (Updated 05/22/23 @ 14:27 by Rachel Tejada NP) Discharge planning issues (Acute) Discharge planning issues (Acute) DVT prophylaxis (Acute) Regurgitation of stomach contents (Acute) Dehydration (Acute) GERD (gastroesophageal reflux disease) (Chronic) SEJAL (obstructive sleep apnea) (Chronic) Liver cancer (Acute) Advanced care planning/counseling discussion (Acute) Myasthenia gravis (Chronic) Generalized weakness (Acute) Ptosis, right (Chronic) Foot drop, right (Acute) Medical History Atrial fibrillation Bladder cancer Hypothyroidism Kidney stones Palliative care patient Pancreatitis s/p cholecystitis/cholecystectomy with stone in pancreatic duct Type 2 diabetes mellitus Surgical History History of appendectomy History of bilateral inguinal hernia repair History of bladder surgery bladder ablation History of cardiac radiofrequency ablation for atrial fibrillation History of carpal tunnel release History of left knee replacement History of repair of rotator cuff Bilateral History of tonsillectomy Social History Smoking/Tobacco Use Status: Former Tobacco Use Quit Date: 06/15/91 Smoking risk assessment performed?: Yes Alcohol Intake: never Drug use: Never Housing: apartment Do you feel safe at home: Yes Do you feel safe in your relationship?: Yes Exam Const General: cooperative, no acute distress, frail appearing and ill appearing chronically Nutritional Appearance: thin Orientation: alert, awake and oriented x3 HENMT Head: normal to inspection, normocephalic and atraumatic Mouth: moist mucous membranes abnormal (dry) Eyes General: appearance normal, both eyes and all related structures Neck Neck: normal visual inspection, full ROM and no JVD Resp Effort & Inspection: normal respiratory effort and able to speak in complete sentences Cardio Rate: regular rate Rhythm: regular rhythm Skin General skin exam: no rashes or lesions noted Neuro General: patient alert, patient awake and patient oriented x3 Motor: muscle tone normal throughout Extrem General: full ROM Psych Appearance: grossly normal Affect: normal affect Course Vital Signs Vital signs: Vital Signs Pulse 70 05/20/23 17:18 Respiratory Rate 18 05/20/23 17:18 Blood Pressure 113/65 05/20/23 17:18 Pulse Oximetry 98 05/20/23 17:18 Pulse 87 05/20/23 19:01 Respiratory Rate 18 05/20/23 17:18 Respiratory Effort Normal, Non-Labored 05/20/23 17:23 Blood Pressure 132/115 H 05/20/23 19:01 Blood Pressure Mean 120 05/20/23 19:01 Pulse Oximetry 97 05/20/23 19:01 Oxygen Delivery Method Room Air 05/20/23 17:18 Oxygen Flow Rate 0 05/20/23 17:18 Pain Level 0 05/20/23 17:18 Lab/Test Results Lab/Test Results: Laboratory Tests Range/Units 05/20/23 05/20/23 17:52 17:52 WBC (4.4-10.8) 10^3/uL 8.27 RBC (4.36-5.78) 10^6/uL 4.41 Hgb (13.5-17.5) g/dL 14.3 Hct (40.0-50.0) % 41.8 MCV (80-95) fL 95 MCH (27.0-33.0) pg 32.4 MCHC (32.0-36.0) % 34.2 RDW (11.8-14.1) % 15.8 H Plt Count (130-400) 10^3/uL 140 MPV (8.0-11.0) fL 10.2 Immature Gran % 0.6 Neutrophils % 89.5 Lymphocytes % 5.2 Monocytes % 4.6 Eosinophils % 0.0 Basophils % 0.1 Nucleated RBC % (0.0-0.3) % 0.0 Absolute Neutrophils (1.2-6.7) 10^3/uL 7.40 H Absolute Lymphocytes (1.2-3.4) 10^3/uL 0.43 L Absolute Monocytes (0.1-0.8) 10^3/uL 0.38 Absolute Eosinophils (0.0-0.7) 10^3/uL 0.00 Absolute Basophils (0.0-0.2) 10^3/uL 0.01 Sodium (136-145) mmol/L 141 Potassium (3.5-5.1) mmol/L 3.8 Chloride (98-107) mmol/L 105 Carbon Dioxide (21.0-32.0) mmol/L 25.5 Anion Gap (3-11) mmol/L 10.5 BUN (7-18) mg/dL 22 H Creatinine (0.70-1.30) mg/dL 1.1 Est GFR (CKD-EPI 2020) (mL/min/1.73m2) 67.02 Glucose (74-106) mg/dL 245 H Calcium (8.5-10.1) mg/dL 8.2 L Magnesium (1.8-2.4) mg/dL 1.7 L Total Bilirubin (0.2-1.0) mg/dL 1.2 H AST (15-37) U/L 106 H ALT (16-63) U/L 160 H Alkaline Phosphatase (46-116) U/L 398 H Total Protein (6.4-8.2) g/dL 6.3 L Albumin (3.4-5.0) g/dL 2.5 L
[2023-05-20] MEDS: SITagliptin 100 MG TAB PO (23:30)
[2023-05-20] MEDS: Tamsulosin 0.4 MG CAPCR PO (23:31)
[2023-05-20] MEDS: dilTIAZem CD 120 MG CAPCR PO (23:32)
[2023-05-20] MEDS: Normal Saline 1,000 ML 150 ML IV (23:38)
[2023-05-21] VITALS (58 sets, daily range): BP systolic 111–153; BP diastolic 50–90; PULSE 49–101; RESP 16; TEMP 36.1–36.6; O2SAT 92–96
--- NOTE | 2023-05-21 | DI.RAD_ITS ---
Exam(s) XR PORTABLE CHEST AP EXAM: XR PORTABLE CHEST AP CLINICAL HISTORY: Dysphagia TECHNIQUE: 2D digital imaging was performed. COMPARISON: CR XR CHEST 2V PA LATERAL from 05/10/2023 FINDINGS: LUNGS: Lungs are not well inflated. Scarring noted previously above the right diaphragm. Basilar in filtrates are not excluded. Tiny right pleural effusion also not excluded. No pleural abnormality s een. HEART: Normal size. AORTA: Tortuous BONES: Unremarkable for age. Soft tissues: Unremarkable. IMPRESSION: Limited exam. Question of atelectasis versus infiltrate at right lung base. DATA REPOSITORY: RADIATION DOSE DELIVERED:
[2023-05-21] MEDS: Normal Saline Flush 10 ML SYR IVP ×4 (04:39→17:29)
[2023-05-21] MEDS: Levothyroxine 100 MCG TAB 300 MCG PO (04:40)
[2023-05-21] MEDS: Pantoprazole 40 MG VIAL IVP ×2 (08:43→20:48)
[2023-05-21] MEDS: predniSONE 20 MG TAB 40 MG PO (08:45)
[2023-05-21] MEDS: dilTIAZem CD 120 MG CAPCR PO ×2 (08:45→20:47)
[2023-05-21] MEDS: Tamsulosin 0.4 MG CAPCR PO ×2 (08:45→20:47)
[2023-05-21] MEDS: Cetirizine 10 MG TAB PO (08:46)
[2023-05-21] MEDS: Insulin Aspart 300 UNITS/3 ML PEN SC ×4 (08:47→22:15)
[2023-05-21] MEDS: Normal Saline 1,000 ML 150 ML IV (08:49)
[2023-05-21 09:22] LABS: Abs Immature Grans 0.06 10^3/uL (0.0-0.06); Absolute Basophil Count 0.01 10^3/uL (0.0-0.2); Absolute Eosinophil Count 0.02 10^3/uL (0.0-0.7); Absolute Lymphocyte Count 1.12 10^3/uL (1.2-3.4); Absolute Monocyte Count 0.57 10^3/uL (0.1-0.8); Absolute Neutrophil Count 6.99 10^3/uL (1.2-6.7); Basophils % 0.1; Eosinophils % 0.2; HCT 40.9 % (40.0-50.0); HGB 14.1 g/dL (13.5-17.5); Immature Grans % 0.7; Lymphocytes % 12.8; MCH 32.6 pg (27.0-33.0); MCHC 34.5 % (32.0-36.0); MCV 95 fL (80-95); MPV 10.3 fL (8.0-11.0); Monocytes % 6.5; Neutrophils % 79.7; Platelet Count 121 10^3/uL (130-400); RBC 4.32 10^6/uL (4.36-5.78); RDW-SD 55.4 fL; WBC 8.77 10^3/uL (4.4-10.8)
[2023-05-21 09:35] LABS: Anion Gap 8.6 mmol/L (3-11); BUN 21 mg/dL (7-18); C-Reactive Protein 0.32 mg/dL (0.0-0.3); CO2 23.4 mmol/L (21.0-32.0); CREATININE 0.9 mg/dL (0.70-1.30); Calcium 7.9 mg/dL (8.5-10.1); Chloride 108 mmol/L (98-107); Estimated GFR 85.27 (mL/min/1.73m2); Glucose 252 mg/dL (74-106); Magnesium 1.6 mg/dL (1.8-2.4); Potassium 3.5 mmol/L (3.5-5.1); Sodium 140 mmol/L (136-145)
--- NOTE | 2023-05-21 09:53 | PDOC.CMIN ---
Date of service: 05/21/23 Time of Service: 09:53 Care Management Initial Assmt Initial Assessment REASON FOR HOSPITALIZATION:: dehydration PREVIOUS FUNCTIONAL STATUS/SOCIAL/FAMILY SUPPORTS:: Wagner lives in a single family home in [place], [place] with his Sarai. They have 2 sons who live in [place]. They also have 3 grandchildren and 3 great grandchildren. 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 His is a retired nurse. Wagner does not receive any community services and is independent at baseline. He is currently experiencing extreme weakness and exhaustion from his disease process but is still able to care for himself. CURRENT FUNCTIONAL STATUS:: Wagner was lying in bed visiting with his and son when CM met with him. He had an oxygen mask on but removed it to speak to CM. He stated to CM I'm done. He shared that he has had conversations with all of his family members and they all understand how he feels and are supportive of his decision. He indicated that after these infusions have been completed, he will not seek any more treatment for his cancer. He noted that one month ago he was doing great. He felt well and was active and able to enjoy life. He added now I am just existing. And I don't want to live this way. His wish he stated, would be to just close his eyes and go to sleep and never wake up. When discharged from [facility] last week, the plan had been for him to be admitted to hospice. When Hospice reached out to him at home, he hesitated and wanted to wait a bit longer to see if the infusions help. CM explained a little more about the services that hospice can offer to support him at home and assured him that he would continue to be treated for anything that was related to his comfort. ADVANCE DIRECTIVES:: none on file Has patient been provided with info about the portal/API?: Yes Did the patient sign up for the portal?: Yes CODE STATUS:: DNR/DNI INSURANCE COVERAGE / FINANCIAL ISSUES:: Medicare CURRENT HOME/COMMUNITY SERVICES/EQUIPMENT:: Wagner was discharged home last week with a plan to enroll in hospice, however that never happened. At home he decided to postpone going on hospice until he could see how his infusions would work. PRIMARY CARE PHYSICIAN:: Oleg Rios POTENTIAL DISCHARGE NEEDS:: follow up with Oncology and PCP PATIENT/FAMILY EDUCATION NEEDS:: Review of discharge instructions, limitations, activity, follow up aristeo, discuss Ask Me Three TRANSPORTATION:: via private vehicle with family PLAN:: Anticipate Wagner will be discharged home and will possibly be admitted to hospice soon thereafter. He will follow up with his PCP, Oncologist, hospice team and plan of care and transport with family. CM will follow and support Wagner and his discharge planning needs. PFSH All Active Problems (Updated 05/21/23 @ 13:59 by Lilliam Berry MD) Discharge planning issues (Acute) DVT prophylaxis (Acute) Regurgitation of stomach contents (Acute) Dehydration (Acute) GERD (gastroesophageal reflux disease) (Chronic) SEJAL (obstructive sleep apnea) (Chronic) Liver cancer (Acute) Advanced care planning/counseling discussion (Acute) Myasthenia gravis (Chronic) Generalized weakness (Acute) Ptosis, right (Chronic) Foot drop, right (Acute) Medical History Atrial fibrillation Bladder cancer Hypothyroidism Kidney stones Palliative care patient Pancreatitis s/p cholecystitis/cholecystectomy with stone in pancreatic duct Type 2 diabetes mellitus Surgical History History of appendectomy History of bilateral inguinal hernia repair History of bladder surgery bladder ablation History of cardiac radiofrequency ablation for atrial fibrillation History of carpal tunnel release History of left knee replacement History of repair of rotator cuff Bilateral History of tonsillectomy Social History Smoking/Tobacco Use Status: Former Tobacco Use Quit Date: 06/15/91 Smoking risk assessment performed?: Yes Alcohol Intake: never Drug use: Never Housing: apartment Do you feel safe at home: Yes Do you feel safe in your relationship?: Yes
--- NOTE | 2023-05-21 10:46 | W.PM.PROGNOT ---
Date of Service Date of service: 05/21/23 Time of Service: 10:46 Assessment and Plan Assessment and plan (1) Myasthenia gravis: Status: Chronic Assessment and plan: I did introduce IVIG as per outpatient neurology recommendations. For now prednisone, mestinon, and mycophenolate are all being continued. I have consulted neurology (unavailable until 05/23/23), PT (with whom the patient refused to work today) as well as OT and speech therapy. Palliative care is also consulted. Will monitor progress on this therapy and this will likely help decide the patient's goals of care. (2) Regurgitation of stomach contents: Status: Acute Assessment and plan: The patient was not interested in having a surgical procedure such as an EGD or a feeding tube. Evaluated by speech therapy who feels that perhaps an MBS might be helpful (Zenker's diverticulum?) while I am wondering if he does not have achalasia. On CT read from April, the esophagus was described as unremarkable. He may have esophageal dysmotility related to malignancy. Regardless, the patient is considering hospice/comfort measures, and I do not think that we should force the patient to undergo imaging/workup for this if his overall goals of care are to go on comfort measures. (3) Dehydration: Status: Acute Assessment and plan: The patient has ascites on exam and has trace edema. I have d/c'ed IVF with low threshold to resume. Consider nutrition c/s. (4) Liver cancer: Status: Acute Assessment and plan: On keytruda. Followed By [facility] (Dr Prado). Palliative care is consulted. (5) Ptosis, right: Status: Chronic Assessment and plan: H/o surgery, h/o myesthenia. This is chronic. (6) Type 2 diabetes mellitus: Assessment and plan: Continue glipizide, metformin and Januvia. Increase SSI. (7) Foot drop, right: Status: Acute Assessment and plan: Refused to work with PT today. PT will try again tomorrow. (8) Atrial fibrillation: Assessment and plan: S/P ablation, not on anticoagulation. In NSR. (9) Discharge planning issues: Status: Deleted Assessment and plan: DNR/DNI. Palliative care re-consulted. (10) DVT prophylaxis: Status: Acute Assessment and plan: SC heparin Subjective Subjective Interval history since last seen: Mr Quiles states that he has been regurgitating food and liquids. I can't eat! He is not sure if he is interested in having a feeding tube, but states that at his age of 82, he would rather not have a surgery. He has never had an EGD, he says. He reports that his weakness, his inability to run 2 miles is what makes him want to think about hospice. He is interested in trying IVIG prior to making that final decision. Denies dizziness, CP, SOB, nausea. Exam Narrative Exam Narrative: General: Pleasant elderly male, tearful/anxious, A&Ox3, does seem to be gurgling on fluids in his esophagus HEENT: EOMI, MMM Heart: RRR, no m/r/g Lungs: CTAB Abdomen: soft, mildly distended, nontender Extremities: trace edema BLEs Objective Last Vital Signs Temp 36.6 C 05/21/23 08:15 Pulse 60 05/21/23 08:16 Resp 16 05/21/23 00:33 BP 120/74 05/21/23 08:16 Pulse Ox 94 05/21/23 08:14 Laboratory Results - last 24 hr 05/20/23 05/20/23 05/21/23 17:52 17:52 09:08 WBC 8.27 RBC 4.41 Hgb 14.3 Hct 41.8 MCV 95 MCH 32.4 MCHC 34.2 RDW 15.8 H Plt Count 140 MPV 10.2 Immature Gran % 0.6 Neutrophils % 89.5 Lymphocytes % 5.2 Monocytes % 4.6 Eosinophils % 0.0 Basophils % 0.1 Nucleated RBC % 0.0 Absolute Neutrophils 7.40 H Absolute Lymphocytes 0.43 L Absolute Monocytes 0.38 Absolute Eosinophils 0.00 Absolute Basophils 0.01 Sodium 141 140 Potassium 3.8 3.5 Chloride 105 108 H Carbon Dioxide 25.5 23.4 Anion Gap 10.5 8.6 BUN 22 H 21 H Creatinine 1.1 0.9 Est GFR (CKD-EPI 2020) 67.02 85.27 Glucose 245 H 252 H Calcium 8.2 L 7.9 L Magnesium 1.7 L 1.6 L Total Bilirubin 1.2 H AST 106 H ALT 160 H Alkaline Phosphatase 398 H C-Reactive Protein 0.32 H Total Protein 6.3 L Albumin 2.5 L 05/21/23 09:08 WBC 8.77 RBC 4.32 L Hgb 14.1 Hct 40.9 MCV 95 MCH 32.6 MCHC 34.5 RDW 16.0 H Plt Count 121 L MPV 10.3 Immature Gran % 0.7 Neutrophils % 79.7 Lymphocytes % 12.8 Monocytes % 6.5 Eosinophils % 0.2 Basophils % 0.1 Nucleated RBC % 0.0 Absolute Neutrophils 6.99 H Absolute Lymphocytes 1.12 L Absolute Monocytes 0.57 Absolute Eosinophils 0.02 Absolute Basophils 0.01 Sodium Potassium Chloride Carbon Dioxide Anion Gap BUN Creatinine Est GFR (CKD-EPI 2020) Glucose Calcium Magnesium Total Bilirubin AST ALT Alkaline Phosphatase C-Reactive Protein Total Protein Albumin Time Spent with Patient Time Spent with Patient: 35-49 minutes Time was spent: preparing to see the patient(eg.review tests), obtaining and/or reviewing separately otained hiistory, ordering medications,tests, procedures, referring, communicating with other health insurance healthcare consultant, indepentently interpreting results, counseling the patient and care coordination
[2023-05-21] MEDS: Ibuprofen 800 MG TAB PO (11:16)
[2023-05-21] MEDS: LORazepam 0.5 MG TAB PO ×2 (11:16→20:48)
[2023-05-21] MEDS: IMMUNE GLOBULIN 10 GM/100 ML BTL IVPB (12:20)
--- NOTE | 2023-05-21 13:26 | PT.INTREAT ---
PT Notes Visit Reasons: Dehydration Patient was approached earlier about a PT evaluation ordered by Dr. Berry. Patient expresses that he is winding down and is okay with it. He declined PT services at this time, stating that he is comfortable. He added that he walked and rode the ambulance for this admission and is content with how much he is able to do right now. PT is not one of his priorities right now. Dr. Berry was apprised and stated that patient's decision may change with the initiation of IV Ig today. MD recommended trying out patient again tomorrow and see if he will have a change of heart about PT.
[2023-05-21] MEDS: IMMUNE GLOBULIN 20 GM/200 ML BTL IVPB (13:31)
--- NOTE | 2023-05-21 13:42 | W.SPSTE ---
Date of service: 05/21/23 Time of Service: 12:30 Subjective Clinical (Bedside) Swallow Evaluation Speech Language Pathology Patient referred for Clinical Swallow Evaluation from Dr Berry given difficulty swallowing and regurgitation. Precautions: Standard, DNI/DNR, Pending PT evaluation. SUBJECTIVE: Patient received alert/awake, agreeable to evaluation, able to communicate wants/needs effectively; able to demonstrate comprehension of recommendations for safe p.o. intake upon discharge once deemed medically stable.?Patient denies s/sx aspiration consistent with myesthenia gravis, complains primarily of esophageal impairments. At times he feels food/drink will leave his stomach and come back up on him, at other times he feels food never transits to distal esophagus, localizes stasis to proximal esophagus. I am always burping and gurgling after I drink. Denies feeling neauseaus so much as it's a mechanical problem. Denies frequent sensation of aspiration. Denies pharyngeal stasis except when it comes back up on him. He feels this was sudden onset with recent infusions. He did say there was one day last week where his swallowing was back to normal and that that felt like a really good day, only to have it back to current baseline again the next day. Patient stating I would be comfortable going home and dying in my sleep tonight, and voicing he does not want to undergo any invasive procedures. Independently/spontaneously reporting he does not want a feeding tube. ? HPI: Pt is an 82 year old m with myesthenia gravis, liver cancer with lung mets, GERD, SEJAL on CPAP, admitted with inability to take PO and vomiting vs regurgitation of all PO. Predisposing dysphagia risk factors: GERD, MD, SEJAL Clinical signs of possible chronic dysphagia: Precipitating dysphagia risk factors / triggering event: poor PO intake due to inability to swallow without vomiting vs regurgitation. ? IMPRESSIONS & PLAN: Patient is likely with severe esophageal vs pharyngo-esophageal dysphagia, possibly overlaid with additional GI issues. 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 Chronic GERD likely a contributer, and possible new changes in setting of various diagnoses and recent treatments. Discussed with the patient the role of MG, GERD, esophageal phase impairments on swallow function, normal vs disordered anatomy/physiology, role of COMMUNITY RELATIONS REP in diagnosing/treating swallowing disorders. Patient is unsure if he would be willing to undergo radiology procedures (either Barium Esophagram or MBSS to rule out Zenker's), but provided education/rationale for further workup if this is in line with his goals of care. If he would choose not to treat something like a Zenker's surgically, then there may be minimal indication to undergo further testing regardless. In the meantime he was advised to use strategies as outlined below and consider with MD over next couple of days how he would like to proceed. I would not advise to advance past purees due to choking risk on regurgitation, but diet should be advanced per patient preference given his voiced goals of care. Further COMMUNITY RELATIONS REP services: Pt to be followed while on unit, d/c recommendations pending further workup and/or pending goals of care. ? Instrumentation: Consider MBSS while inpatient; patient/care team to consider. Diet Texture Modification(s): IDDSI Level(s) SOLIDS 4-Pureed Solids LIQUIDS 0-Thin Liquids Medication Intake: Whole or crushed with Thin Liquids or purees, or via IV. Alter medications only as advised by MD or Pharmacist RISK MANAGEMENT: Fully upright for all PO intake. Encourage physical mobility as tolerated. Oral hygiene before/after PO intake, using friction with toothbrush on all oral structures as tolerated ? Level of Assistance/Supervision: Setup assist and distant/intermittent supervision. PO intake only when awake/alert? Strategies/Adaptations/Assistive Equipment: Reduce auditory and/or visual distractions when eatin Provide verbal and/or visual cues to use recommended strategies Slow rate of intake, one small sip/bite at a time, wait 30 seconds between bites. Smaller/more frequent meals throughout the day Alternate intake of liquids and solids Posture/Positioning Needs: Avoid meals/snacks 2-3 hours prior to reclining/sleeping Sleep with head of bed elevated to reduce likelihood of nocturnal reflux, Other PFSH All Active Problems?(Updated 05/21/23 @ 13:47 by Lilliam Berry MD) Discharge planning issues (Acute) DVT prophylaxis (Acute) Regurgitation of stomach contents (Acute) Dehydration (Acute) GERD (gastroesophageal reflux disease) (Chronic) SEJAL (obstructive sleep apnea) (Chronic) Liver cancer (Acute) Advanced care planning/counseling discussion (Acute) Myasthenia gravis (Chronic) Generalized weakness (Acute) Ptosis, right (Acute) Foot drop, right (Acute) Medical History? Atrial fibrillation Bladder cancer Hypothyroidism Kidney stones Palliative care patient Pancreatitis s/p cholecystitis/cholecystectomy with stone in pancreatic ductType 2 diabetes mellitus Surgical History? History of appendectomy History of bilateral inguinal hernia repair History of bladder surgery bladder ablationHistory of cardiac radiofrequency ablation for atrial fibrillationHistory of carpal tunnel release History of left knee replacement History of repair of rotator cuff BilateralHistory of tonsillectomy ? OBJECTIVE: Respiratory: room air w/o s/sx dyspnea Language: Grossly WFL Hearing: WFL at close distance Mental Status: Alert and Oriented person, place, time, event Recall of current events intact Speech: WFL Oral Motor Exam: ? Dentition ? Natural dentition ? Good condition ? Oral Mucosa ? Dry Good oral care ? CN V - Trigeminal ? Jaw Movement ? WFL ? CN VII ? Labial/Facial ? WFL ? CN IX ? Palate ? WFL ? CN X ? Laryngeal ? Vocal quality ? WFL ? Volitional cough ? Sharp & strong ? CN XII ? Lingual ? WFL ? Volitional Swallow ? Robust laryngeal elevation ? [place] Swallow Protocol Results ? FAIL: Inability to drink the entire 3 oz in sequential swallows due to stopping/starting ? Food items tested: ?? IDDSI 0: Oral phase: WFL Pharyngeal/Esophageal phase: Voice change after swallow?(occasionally, upon regurgitation Frequent belching, small amounts of regurgitation and gas. Provided education to: Patient, Family, Nursing, MD Topics Addressed: anatomy/physiology of swallowing mechanism, overt s/sx to monitor for re: potential aspiration of food / liquids, recommendations for improved oral care, relationship between respiratory function changes and deglutition, Rationale for recommendations as outlined below, potential options for further swallow workup Outcome: Verbalized/demonstrated understanding Goals: Patient will participate in further workup of swallow function (e.g., MBSS) pending goals of care. COMMUNITY RELATIONS REP CPT Code: 79404 Clinical Swallowing Evaluation Time spent: 25 minutes Coding Diagnoses CPT Codes EVALUATE SWALLOWING FUNCTION - 95464 ([id number])
--- NOTE | 2023-05-21 14:39 | PT.INNT ---
PT Notes Visit Reasons: Dehydration Will plan on seeing patient on 05/23/2023 to allow for ample time for IV Ig to work on patient and will revisit/re-offer services as ordered by MD.
[2023-05-21] MEDS: MAGNESIUM SULFATE 2 GM/50 ML BAG IVPB (14:43)
[2023-05-21] MEDS: Heparin 5,000 UNITS/ML VIAL 5000 UNITS SC (17:17)
[2023-05-21] MEDS: SITagliptin 100 MG TAB PO (22:14)
[2023-05-21] MEDS: LORazepam 1 MG TAB PO (22:30)
[2023-05-22] MEDS: Levothyroxine 100 MCG TAB 300 MCG PO (05:44)
[2023-05-22] MEDS: Heparin 5,000 UNITS/ML VIAL 5000 UNITS SC ×2 (05:44→17:55)
[2023-05-22 07:49] LABS: Abs Immature Grans 0.05 10^3/uL (0.0-0.06); Absolute Basophil Count 0.01 10^3/uL (0.0-0.2); Absolute Eosinophil Count 0.02 10^3/uL (0.0-0.7); Absolute Lymphocyte Count 0.79 10^3/uL (1.2-3.4); Absolute Monocyte Count 0.37 10^3/uL (0.1-0.8); Absolute Neutrophil Count 5.16 10^3/uL (1.2-6.7); Basophils % 0.2; Eosinophils % 0.3; HCT 36.7 % (40.0-50.0); HGB 12.4 g/dL (13.5-17.5); Immature Grans % 0.8; Lymphocytes % 12.3; MCH 32.1 pg (27.0-33.0); MCHC 33.8 % (32.0-36.0); MCV 95 fL (80-95); MPV 10.2 fL (8.0-11.0); Monocytes % 5.8; Neutrophils % 80.6; Platelet Count 109 10^3/uL (130-400); RBC 3.86 10^6/uL (4.36-5.78); RDW 15.9 % (11.8-14.1); RDW-SD 55.1 fL
[2023-05-22 08:05] LABS: Anion Gap 7.2 mmol/L (3-11); BUN 21 mg/dL (7-18); C-Reactive Protein 0.42 mg/dL (0.0-0.3); CO2 24.8 mmol/L (21.0-32.0); CREATININE 1.1 mg/dL (0.70-1.30); Calcium 7.9 mg/dL (8.5-10.1); Chloride 107 mmol/L (98-107); Estimated GFR 67.02 (mL/min/1.73m2); Glucose 210 mg/dL (74-106); Magnesium 1.8 mg/dL (1.8-2.4); Potassium 3.3 mmol/L (3.5-5.1); Sodium 139 mmol/L (136-145)
[2023-05-22] MEDS: dilTIAZem CD 120 MG CAPCR PO ×2 (09:18→20:13)
[2023-05-22] MEDS: predniSONE 20 MG TAB 40 MG PO (09:19)
[2023-05-22] MEDS: Tamsulosin 0.4 MG CAPCR PO ×2 (09:22→20:13)
[2023-05-22] MEDS: Pantoprazole 40 MG VIAL IVP ×2 (09:23→20:12)
[2023-05-22] MEDS: Normal Saline Flush 10 ML SYR IVP (09:23)
[2023-05-22] MEDS: Insulin Aspart 300 UNITS/3 ML PEN SC ×4 (09:24→22:09)
[2023-05-22] MEDS: POTASSIUM CHLORIDE 20 MEQ/100 ML BAG 50 MEQ IVPB ×2 (10:52→13:06)
[2023-05-22 12:10] VITALS: BP 119/71; PULSE 59; RESP 17; TEMP 36.2; O2SAT 96
[2023-05-22] MEDS: IMMUNE GLOBULIN 20 GM/200 ML BTL IVPB (12:10)
[2023-05-22 12:25] VITALS: BP 119/75; PULSE 66; RESP 17; TEMP 36.2; O2SAT 96
[2023-05-22 12:46] VITALS: BP 120/77; PULSE 89; RESP 17; TEMP 36.2; O2SAT 95
[2023-05-22 13:15] VITALS: BP 117/77; PULSE 67; RESP 19; TEMP 36.2; O2SAT 96
[2023-05-22 13:45] VITALS: BP 120/72; PULSE 77; RESP 17; TEMP 36.4; O2SAT 95
[2023-05-22] MEDS: IMMUNE GLOBULIN 10 GM/100 ML BTL IVPB (13:45)
[2023-05-22 14:56] VITALS: BP 130/78; PULSE 67; TEMP 36.3; O2SAT 93
--- NOTE | 2023-05-22 16:56 | W.PM.PROGNOT ---
Date of Service Date of service: 05/22/23 Time of Service: 16:56 Assessment and Plan Assessment and plan (1) Myasthenia gravis: Status: Chronic Assessment and plan: Continue IVIG as per outpatient neurology recommendations. For now, will also continue prednisone, mestinon, and mycophenolate. Await neurology consult (unavailable until 05/23/23). PT/OT consulted, but the patient was not interested in working with them yesterday. Await palliative care consult. (2) Regurgitation of stomach contents: Status: Acute Assessment and plan: The patient was not interested in having a surgical procedure such as an EGD or a feeding tube. He is not interested in an MBS or a regular barium swallow. He is interested in going home on hospice. (3) Dehydration: Status: Acute Assessment and plan: I do not so much appreciate abdominal distention today. He is able to tolerate PO liquids. Consider nutrition c/s, but only if this aligns with his goals of care. (4) Liver cancer: Status: Acute Assessment and plan: On keytruda. Followed By [facility] (Dr Prado). Palliative care is consulted. Patient is interested in going home on hospice. (5) Ptosis, right: Status: Chronic Assessment and plan: H/o surgery, h/o myesthenia. This is chronic. (6) Type 2 diabetes mellitus: Assessment and plan: Continue glipizide, metformin and Januvia. BG is in 400s by fingerstick, but I believe that IVIG can interfere with glucose readings. We are obtaining a foral chemistry. (7) Foot drop, right: Status: Acute Assessment and plan: Refusing PT (8) Atrial fibrillation: Assessment and plan: S/P ablation, not on anticoagulation. In NSR. (9) Discharge planning issues: Status: Acute Assessment and plan: DNR/DNI. Palliative care re-consulted. Anticipate discharge home on hospice when ready (10) DVT prophylaxis: Status: Acute Assessment and plan: SC heparin Subjective Subjective Interval history since last seen: Mr Quiles states that he is feeling better today. He continues to have difficulty swallowing. The thing that helps, he is finding, is if he puts on his CPAP mask and lays down. Sitting up, interestingly, does not help. He is not interested in any kind of workup of his swallowing difficulty. He is interested in going home on hospice, but for now would like to continue to receive IVIG, which is working. He was able to walk to the bathroom and to the end of the room today, which he would not be able to do yesterday. NO dizziness, CP, SOB, nausea. Exam Narrative Exam Narrative: General: Pleasant elderly male, appears more energetic/stronger, A&Ox3, I do still hear audible gurgling HEENT: EOMI, MMM Heart: RRR, no m/r/g Lungs: CTAB Abdomen: soft, mildly distended, nontender Extremities: trace edema BLEs Objective Last Vital Signs Temp 36.3 C L 05/22/23 14:56 Pulse 67 05/22/23 14:56 Resp 17 05/22/23 13:45 BP 130/78 05/22/23 14:56 Pulse Ox 93 05/22/23 14:56 Laboratory Results - last 24 hr 05/22/23 05/22/23 07:03 07:03 WBC 6.40 RBC 3.86 L Hgb 12.4 L Hct 36.7 L MCV 95 MCH 32.1 MCHC 33.8 RDW 15.9 H Plt Count 109 L MPV 10.2 Immature Gran % 0.8 Neutrophils % 80.6 Lymphocytes % 12.3 Monocytes % 5.8 Eosinophils % 0.3 Basophils % 0.2 Nucleated RBC % 0.0 Absolute Neutrophils 5.16 Absolute Lymphocytes 0.79 L Absolute Monocytes 0.37 Absolute Eosinophils 0.02 Absolute Basophils 0.01 Sodium 139 Potassium 3.3 L Chloride 107 Carbon Dioxide 24.8 Anion Gap 7.2 BUN 21 H Creatinine 1.1 Est GFR (CKD-EPI 2020) 67.02 Glucose 210 H Calcium 7.9 L Magnesium 1.8 C-Reactive Protein 0.42 H Time Spent with Patient Time Spent with Patient: 25-34 minutes Time was spent: preparing to see the patient(eg.review tests), obtaining and/or reviewing separately otained hiistory, ordering medications,tests, procedures, referring, communicating with other health pharmacy care coordinator, indepentently interpreting results, counseling the patient and care coordination
[2023-05-22 17:06] LABS: BE (Venous) -2 mmol/L (-2-3); HCO3 (Venous) 22 mmol/L (23-28); O2 Sat (Venous) 87 %; TCO2 (Venous) 20 mmol/L (24-29); pCO2 (Venous) 33 mmHg (41-51); pH (Venous) 7.43 (7.31-7.41); pO2 (Venous) 50 mmHg
[2023-05-22 17:18] LABS: Anion Gap 7.1 mmol/L (3-11); BUN 19 mg/dL (7-18); CO2 21.9 mmol/L (21.0-32.0); CREATININE 1.1 mg/dL (0.70-1.30); Calcium 7.8 mg/dL (8.5-10.1); Chloride 104 mmol/L (98-107); Estimated GFR 67.02 (mL/min/1.73m2); Glucose 391 mg/dL (74-106); Potassium 4.1 mmol/L (3.5-5.1); Sodium 133 mmol/L (136-145)
[2023-05-22] MEDS: LORazepam 0.5 MG TAB PO ×2 (17:55→22:06)
[2023-05-22] MEDS: SITagliptin 100 MG TAB PO (20:13)
[2023-05-22] MEDS: Insulin Glargine 300 UNITS/3 ML PEN 10 UNITS SC (22:04)
[2023-05-23] MEDS: Levothyroxine 100 MCG TAB 300 MCG PO (05:15)
[2023-05-23] MEDS: Heparin 5,000 UNITS/ML VIAL 5000 UNITS SC (05:15)
[2023-05-23 07:05] LABS: Abs Immature Grans 0.03 10^3/uL (0.0-0.06); Absolute Basophil Count 0.01 10^3/uL (0.0-0.2); Absolute Eosinophil Count 0.02 10^3/uL (0.0-0.7); Absolute Lymphocyte Count 0.83 10^3/uL (1.2-3.4); Absolute Monocyte Count 0.38 10^3/uL (0.1-0.8); Absolute Neutrophil Count 4.69 10^3/uL (1.2-6.7); Basophils % 0.2; Eosinophils % 0.3; HCT 35.7 % (40.0-50.0); HGB 12.1 g/dL (13.5-17.5); Immature Grans % 0.5; Lymphocytes % 13.9; MCH 31.9 pg (27.0-33.0); MCHC 33.9 % (32.0-36.0); MCV 94 fL (80-95); MPV 10.6 fL (8.0-11.0); Monocytes % 6.4; Neutrophils % 78.7; RBC 3.79 10^6/uL (4.36-5.78); RDW 15.6 % (11.8-14.1); RDW-SD 54.4 fL; WBC 5.96 10^3/uL (4.4-10.8)
[2023-05-23 07:17] VITALS: BP 117/69; PULSE 82; TEMP 35.7; O2SAT 95
[2023-05-23 07:24] LABS: Anion Gap 8.6 mmol/L (3-11); BUN 15 mg/dL (7-18); CO2 24.4 mmol/L (21.0-32.0); CREATININE 0.8 mg/dL (0.70-1.30); Calcium 7.8 mg/dL (8.5-10.1); Chloride 108 mmol/L (98-107); Estimated GFR 88.36 (mL/min/1.73m2); Glucose 57 mg/dL (74-106); Magnesium 1.6 mg/dL (1.8-2.4); Sodium 141 mmol/L (136-145)
[2023-05-23] MEDS: dilTIAZem CD 120 MG CAPCR PO (08:47)
[2023-05-23] MEDS: Tamsulosin 0.4 MG CAPCR PO (08:47)
[2023-05-23] MEDS: predniSONE 20 MG TAB 40 MG PO (08:48)
--- NOTE | 2023-05-23 09:03 | OT.INDS ---
Occupational Therapy Notes 05/23/23 OT consult received and pts chart was reviewed. OT went in to consult with pt who was lying in bed. He states that, he is ready to return home to . He reports that he lived a good life and is happy with his life but is not wanting to prolong his life any longer with medications and tx for his cancer. He notes that he doesn't feel he will need any adaptive equipment at home to be able to return and he states that he feels that hospice will be able to (A) him with this as needed. Overall he is receptive to discussion on home set up/task management. He reports that his and grandsons are there to support him as needed. He is very pleasant and notes that he would like to kindly decline Occupational Therapy services at this time. OT will plan to discharge orders at this time and is happy to consult with pt in the future if OT services are deemed necessary in the future. Yael Martínez, OTR/L
[2023-05-23 09:10] LABS: Platelet Count 98 10^3/uL (130-400)
[2023-05-23 09:12] LABS: RBC Morphology Normal
--- NOTE | 2023-05-23 09:49 | PT.INNT ---
PT Notes Visit Reasons: Dehydration OT Yael verbalized that patient does not want to do any therapy services. Nurse Estefany stated that patient feels better with the IV Ig treatment but told this morning her that he wants to go home on hospice. PT order discharged to respect patient's wishes. CM Sulema aware and is agreeable.
--- NOTE | 2023-05-23 10:39 | DSE_ITS ---
Date of service: 05/23/23 Time of Service: 10:39 DS: Diagnosis Discharge Diagnosis (1) Myasthenia gravis: Status: Chronic (2) Regurgitation of stomach contents: Status: Acute (3) Dehydration: Status: Acute (4) Liver cancer: Status: Acute (5) Ptosis, right: Status: Chronic (6) Type 2 diabetes mellitus: (7) Foot drop, right: Status: Acute (8) Atrial fibrillation: (9) Discharge planning issues: Status: Deleted (10) DVT prophylaxis: Status: Deleted Discharge Plan Disposition Patient Disposition: Home W/Hospice Services Condition: Deteriorating Discharge Details Reason For Visit: Dehydration Admit Date/Time: 05/21/23 18:10 Admit Provider: Raj Chaudhary Attending Provider: Raj Chaudhary Primary Care Provider: Oleg Rios Hospital Course Hospital Course: This is an 82-year-old male patient with history of myasthenia's gravis liver cancer with metastases followed by Dr. Prado previously on Keytruda last dose was April 20 recent admission for exacerbation of myasthenia's gravis last month.? Patient stated that over the past couple days he had been unable to take any oral intake everything just comes up he denied any nausea he denied any abdominal pain.? He feels extremely weak. He was admitted to the hospital and seen by neurology. After great discussion, he decided to stop all treatment and go home on home health hospice services. He is DNR/DNI. Home Meds and New Rx's Prescriptions: No Action tamsulosin 0.4 mg capsule 0.4 mg PO BID mycophenolate mofetil 500 mg tablet 1,000 mg PO BID Patient Comments: Im not taking it. levocetirizine [Xyzal] 5 mg tablet 5 mg PO DAILY diltiazem HCl [Cartia XT] 120 MG capsule,extended release 24hr 120 mg PO BID levothyroxine [Synthroid] 137 MCG tablet 300 mcg PO DAILY triamcinolone acetonide 15 GM cream 1 applic Topical PRN PRN Creon 24,000-76,000 -120,000 unit Capsule,Delayed Release(Dr/Ec) 2 cap PO TID Patient Comments: 2 caps with each meal Rx Instructions: administer with meals and/or snacks prednisone 20 mg Tablet 40 mg PO DAILY pyridostigmine bromide 60 mg tablet 120 mg PO TID Qty: 180 0RF Januvia 100 mg Tablet 100 mg PO QPM levocetirizine [Xyzal] 5 mg Tablet 5 mg PO QPM Discharge Instructions Instructions: Hospice Care (GEN) Additional Instructions: Someone from hospice will contact you to make an appointment to come to your home. Stand Alone Forms: Nursing Discharge Form Referrals: Shahla Cooper MD [ [facility] STAFF PHYSICIAN] - (Someone from hospice will contact you to make an appointment to come to your home. ) Activity:: Activity as Tolerated Equipment/Supplies:: No Equipment Needed Diet:: As Tolerated Discharge Orders Discharge Orders: Discharge Order (Routine); Ordered 05/23/23 Ordered By: Christine Quinones Discharge Data Discharge Date/Time-TO BE ENTERED AT DEPARTURE: 05/23/23 15:26 Discharge Comment: home with family DS: Summary Time Spent with Patient providing and/or coordinating discharge services: Greater than 30 minutes Status at Discharge Functional status at discharge: wheelchair bound Overall status at discharge: patient is not back to baseline Mental Status: mental status grossly normal Speech and Movement: speech and movement normal Mood: congruent mood Affect: normal affect Exam Narrative Exam Narrative: No exam as he wants to enter hospice. Psych Mental Status: mental status grossly normal Speech and Movement: speech and movement normal Mood: congruent mood Affect: normal affect DS: Data Vitals/I&O Vitals and I&O: Vital Signs Temperature 35.7 C L 05/23/23 07:17 Temperature Source Tympanic 05/23/23 07:17 Pulse 82 05/23/23 07:17 Pulse Rhythm Irregular 05/22/23 09:29 Respiratory Rate 17 05/22/23 13:45 Respiratory Effort Normal, Non-Labored 05/22/23 09:29 Respiratory Depth Normal 05/22/23 09:29 Respiratory Pattern Normal 05/22/23 09:29 Blood Pressure 117/69 05/23/23 07:17 Blood Pressure Mean 70 05/21/23 17:31 Blood Pressure Position Supine 05/21/23 00:33 Pulse Oximetry 95 05/23/23 07:17 Oxygen Delivery Method Room Air 05/23/23 07:17 Oxygen Flow Rate 0 05/23/23 07:17 Pain Level 0 05/21/23 18:33 Comment vs for reassessment of infusion IG 05/22/23 12:46 Intake & Output 05/22/23 05/22/23 05/23/23 11:59 23:59 11:59 Intake Total 350 / 650.000 300.000 / 650.000 Output Total 450 / 450 Balance 350 / 200.000 -150.000 / 200.000 Intake: IV 300.000 / 300.000 Oral 350 / 350 Output: Urine 450 / 450 Other: Urine Color Pale Urine Appearance Clear Stool Size Moderate Stool Characteristics Soft Formed Voiding Methods Toilet Data Completed and Pending Labs on day of discharge: Labs from last 24 hours 05/23/23 05/23/23 05/22/23 06:26 06:26 16:50 WBC 5.96 RBC 3.79 L Hgb 12.1 L Hct 35.7 L MCV 94 MCH 31.9 MCHC 33.9 RDW 15.6 H Plt Count 98 L MPV 10.6 Immature Gran % 0.5 Neutrophils % 78.7 Lymphocytes % 13.9 Monocytes % 6.4 Eosinophils % 0.3 Basophils % 0.2 Nucleated RBC % 0.0 Absolute Neutrophils 4.69 Absolute Lymphocytes 0.83 L Absolute Monocytes 0.38 Absolute Eosinophils 0.02 Absolute Basophils 0.01 RBC Morphology Normal VBG pH 7.43 H VBG pCO2 33 L VBG pO2 50 VBG HCO3 22 L VBG Total CO2 20 L VBG O2 Saturation 87 VBG Base Excess -2 Sodium 141 Potassium 3.0 L D Chloride 108 H Carbon Dioxide 24.4 Anion Gap 8.6 BUN 15 Creatinine 0.8 Est GFR (CKD-EPI 2020) 88.36 Glucose 57 L Calcium 7.8 L Magnesium 1.6 L 05/22/23 05/22/23 16:50 16:43 WBC RBC Hgb Hct MCV MCH MCHC RDW Plt Count MPV Immature Gran % Neutrophils % Lymphocytes % Monocytes % Eosinophils % Basophils % Nucleated RBC % Absolute Neutrophils Absolute Lymphocytes Absolute Monocytes Absolute Eosinophils Absolute Basophils RBC Morphology VBG pH VBG pCO2 VBG pO2 VBG HCO3 VBG Total CO2 VBG O2 Saturation VBG Base Excess Sodium 133 L Potassium 4.1 Chloride 104 Carbon Dioxide 21.9 Anion Gap 7.1 BUN 19 H Creatinine 1.1 Est GFR (CKD-EPI 2020) 67.02 Glucose 391 H Cancelled Calcium 7.8 L Magnesium PFSH All Active Problems (Updated 05/24/23 @ 00:06 by LIBRADO SCHMIDT) Discharge planning issues (Acute) Regurgitation of stomach contents (Acute) Dehydration (Acute) GERD (gastroesophageal reflux disease) (Chronic) SEJAL (obstructive sleep apnea) (Chronic) Liver cancer (Acute) Advanced care planning/counseling discussion (Acute) Myasthenia gravis (Chronic) Generalized weakness (Acute) Ptosis, right (Chronic) Foot drop, right (Acute) Medical History Atrial fibrillation Bladder cancer Hypothyroidism Kidney stones Palliative care patient Pancreatitis s/p cholecystitis/cholecystectomy with stone in pancreatic duct Type 2 diabetes mellitus Surgical History History of appendectomy History of bilateral inguinal hernia repair History of bladder surgery bladder ablation History of cardiac radiofrequency ablation for atrial fibrillation History of carpal tunnel release History of left knee replacement History of repair of rotator cuff Bilateral History of tonsillectomy Social History Smoking/Tobacco Use Status: Former Tobacco Use Quit Date: 06/15/91 Smoking risk assessment performed?: Yes Alcohol Intake: never Drug use: Never Housing: apartment Do you feel safe at home: Yes Do you feel safe in your relationship?: Yes Time Spent with Patient Time Spent with Patient: 45-69 minutes Time was spent: preparing to see the patient(eg.review tests), ordering medications,tests, procedures, referring, communicating with other health director of primary care, counseling the patient and care coordination
[2023-05-23] MEDS: IMMUNE GLOBULIN 20 GM/200 ML BTL IVPB (12:46)
--- NOTE | 2023-05-23 13:01 | W.PM.PROGNOT ---
Date of Service Date of service: 05/23/23 Time of Service: 13:01 Objective Last Vital Signs Temp 96.3 F L 05/23/23 07:17 Pulse 82 05/23/23 07:17 Resp 17 05/22/23 13:45 BP 117/69 05/23/23 07:17 Pulse Ox 95 05/23/23 07:17 Laboratory Results - last 24 hr 05/22/23 05/22/23 05/22/23 16:43 16:50 16:50 WBC RBC Hgb Hct MCV MCH MCHC RDW Plt Count MPV Immature Gran % Neutrophils % Lymphocytes % Monocytes % Eosinophils % Basophils % Nucleated RBC % Absolute Neutrophils Absolute Lymphocytes Absolute Monocytes Absolute Eosinophils Absolute Basophils RBC Morphology VBG pH 7.43 H VBG pCO2 33 L VBG pO2 50 VBG HCO3 22 L VBG Total CO2 20 L VBG O2 Saturation 87 VBG Base Excess -2 Sodium 133 L Potassium 4.1 Chloride 104 Carbon Dioxide 21.9 Anion Gap 7.1 BUN 19 H Creatinine 1.1 Est GFR (CKD-EPI 2020) 67.02 Glucose Cancelled 391 H Calcium 7.8 L Magnesium 05/23/23 05/23/23 06:26 06:26 WBC 5.96 RBC 3.79 L Hgb 12.1 L Hct 35.7 L MCV 94 MCH 31.9 MCHC 33.9 RDW 15.6 H Plt Count 98 L MPV 10.6 Immature Gran % 0.5 Neutrophils % 78.7 Lymphocytes % 13.9 Monocytes % 6.4 Eosinophils % 0.3 Basophils % 0.2 Nucleated RBC % 0.0 Absolute Neutrophils 4.69 Absolute Lymphocytes 0.83 L Absolute Monocytes 0.38 Absolute Eosinophils 0.02 Absolute Basophils 0.01 RBC Morphology Normal VBG pH VBG pCO2 VBG pO2 VBG HCO3 VBG Total CO2 VBG O2 Saturation VBG Base Excess Sodium 141 Potassium 3.0 L D Chloride 108 H Carbon Dioxide 24.4 Anion Gap 8.6 BUN 15 Creatinine 0.8 Est GFR (CKD-EPI 2020) 88.36 Glucose 57 L Calcium 7.8 L Magnesium 1.6 L
[2023-05-23] MEDS: Insulin Aspart 300 UNITS/3 ML PEN SC ×2 (13:10→13:11)
--- NOTE | 2023-05-23 14:03 | PDOC.CMDIS ---
Date of service: 05/23/23 Time of Service: 14:03 LACE Index Scoring Tool Questions: Length of Stay (in days): 2 Was the patient admitted via the E.D.?: Yes Comorbidities: Diabetes w/o Complication, Connective Tissue Disease and Metastatic Solid Tumor E.D. Visits: 5 Answers: Total Score: 14 Risk of Readmission: High Risk Care Management Discharge Plan Reason for Hospitalization: dehydration Discharge Plan: Bill will be discharged later today after completion of his IVIG infusion. He will follow up with hospice after discharge. He informed that he has had open, thu discussions with his and children about his decision to go on hospice and has made arrangements with [facility]. He will transport home with his and son and follow up with his PCP until or unless he goes on hospice. Patient/Family Education Needs: Review of discharge instructions, limitations, activity, follow up plan, discuss Ask Me Three
[2023-05-23] MEDS: IMMUNE GLOBULIN 5 GM/50 ML BTL IVPB ×2 (14:41→14:43)
--- NOTE | 2023-05-23 15:48 | W.NEUROCONSU ---
Date of service: 05/23/23 Time of Service: 12:15 Assessment and Plan Assessment and plan (1) Myasthenia gravis: Status: Chronic (2) Generalized weakness: Status: Acute (3) Ptosis, right: Status: Chronic (4) Foot drop, right: Status: Acute Assessment and plan: Mr. Quiles is an 82 year-old with metastatic hepatocellular carcinoma with decline in the last few weeks s/p treatment with Keytruda including presumed myasthenia gravis flare. He has made the decision to enter hospice. Discussed he may want to discuss with them continued IVIG treatments at home if able to as he does feel better since starting. He will call/keep me updated with any questions or concerns. History of Present Illness History of Present Illness Chief Complaint: MG Narrative: Mr. Quiles is well known to me as I just saw him in clinic on 05/17/23 as f/up for presumed myasthenia gravis flare. Please see my previous notes for a complete history of his recent clinical course. His and son are at bedside. He is an 82 year-old with metastatic hepatocellular carcinoma, myasthenia gravis, hypertension, hyperlipidemia, DM2, atrial fibrillation - not on anticoagulation, hypothyroidism, nephrolithiasis, and bladder cancer s/p ablative treatment. Mr. Quiles has a terrible diagnosis of metstatic hepatoceullar carcinoma, for which his goal of treatment has been to maintain QOL and thus declined chemotherapy, but was recently treated with Keytruda. He unfortunately started struggling this last ~1month (and particularly in the last 2 weeks) with weakness, emesis, and poor PO intake amongst other issues which has resulted in a significant decline in QOL. With this decline in QOL, he has been leaning towards hospice. Last week, we discussed IVIG to see if this would give him more strength and improve his QOL. Today will be the third infusion of 0.4g/kg. He has had no ADRs and does feel this has made him stronger. However, he is tired of not feeling well and wants to enter hospice at this time. He has self d/c'd most of his medications at this point. Review of Systems All systems reviewed & are unremarkable except as noted in HPI and below PFSH All Active Problems (Updated 05/22/23 @ 14:27 by Rachel Tejada NP) Discharge planning issues (Acute) Discharge planning issues (Acute) DVT prophylaxis (Acute) Regurgitation of stomach contents (Acute) Dehydration (Acute) GERD (gastroesophageal reflux disease) (Chronic) SEJAL (obstructive sleep apnea) (Chronic) Liver cancer (Acute) Advanced care planning/counseling discussion (Acute) Myasthenia gravis (Chronic) Generalized weakness (Acute) Ptosis, right (Chronic) Foot drop, right (Acute) Medical History Atrial fibrillation Bladder cancer Hypothyroidism Kidney stones Palliative care patient Pancreatitis s/p cholecystitis/cholecystectomy with stone in pancreatic duct Type 2 diabetes mellitus Surgical History History of appendectomy History of bilateral inguinal hernia repair History of bladder surgery bladder ablation History of cardiac radiofrequency ablation for atrial fibrillation History of carpal tunnel release History of left knee replacement History of repair of rotator cuff Bilateral History of tonsillectomy Social History Smoking/Tobacco Use Status: Former Tobacco Use Quit Date: 06/15/91 Smoking risk assessment performed?: Yes Alcohol Intake: never Drug use: Never Housing: apartment Do you feel safe at home: Yes Do you feel safe in your relationship?: Yes Visit Medication and Allergies Active Medications Generic Name Dose Route Start Last Admin Trade Name Freq PRN Reason Stop Dose Admin Lipase/Protease/Amylase 4 cap 05/21/23 07:30 05/23/23 11:44 Creon, Lipase 12,000 Capcr PO Not Given AC DARRIAN Cetirizine HCl 10 mg 05/22/23 11:00 05/23/23 11:44 Cetirizine 10 Mg Tab PO Not Given DAILY@1100 DARRIAN Dextrose 0 gm 05/20/23 22:04 Glucose Oral Gel 15 Gm/37.5 Gm Tube PO DIRECTED PRN Dextrose/Water 0 gm 05/20/23 22:04 Dextrose 50%-Water 25 Gm/50 Ml Syr IVP DIRECTED PRN Diltiazem HCl 120 mg 05/20/23 23:20 05/23/23 08:47 Diltiazem Cd 120 Mg Capcr PO 120 mg BID DARRIAN Administration Dimethicone/Zinc Oxide 0 gm 05/20/23 18:46 Ric Protect Cream 142 Gm Tube TP PRN PRN Heparin Sodium (Porcine) 5,000 units 05/21/23 18:00 05/23/23 05:15 Heparin 5,000 Units/Ml Vial SC 5,000 units Q12H DARRIAN Administration Immune Globulin 20 gm in 200 mls @ 0 mls/hr 05/21/23 12:00 05/23/23 14:10 Privigen 10% IVPB 05/25/23 12:01 5 mg/kg/min DAILY@1200 [facility] 245 mls/hr Titration Protocol Sodium Chloride 500 mls @ 0 mls/hr 05/21/23 16:19 Saline 500ml Bag IV PRN PRN As Directed IV Miscellaneous Supplies 1 each 05/21/23 16:30 Iv Access IV DIRECTED [facility] Ibuprofen 800 mg 05/21/23 11:00 05/23/23 11:44 Ibuprofen 800 Mg Tab PO 05/25/23 11:01 Not Given DAILY@1100 [facility] Insulin Aspart 0 units 05/21/23 08:00 05/23/23 13:10 Insulin Aspart 300 Units/3 Ml Pen SC 6 unit 0800,1200,1700,2200 [facility] Administration Protocol Insulin Aspart 0 units 05/22/23 18:20 05/23/23 13:11 Insulin Aspart 300 Units/3 Ml Pen SC 3 units 0800,1200,1700 [facility] Administration Insulin Glargine 10 units 05/22/23 22:00 05/22/23 22:04 Insulin Glargine 300 Units/3 Ml Pen SC 10 units HS [facility] Administration Levothyroxine Sodium 300 mcg 05/21/23 05:35 05/23/23 05:15 Levothyroxine 100 Mcg Tab PO 300 mcg DAILY AM DARRIAN Administration Lorazepam 0.5 mg 05/21/23 10:41 05/22/23 22:06 Lorazepam 0.5 Mg Tab PO 0.5 mg BID PRN PRN Administration Mycophenolate Mofetil 1,000 mg 05/20/23 21:55 05/23/23 08:47 Mycophenolate Mofetil 500 Mg Tab PO 1,000 mg BID DARRIAN Administration Pantoprazole Sodium 40 mg 05/21/23 08:30 05/23/23 08:41 Pantoprazole 40 Mg Vial IVP Not Given BID [facility] Prednisone 40 mg 05/21/23 08:30 05/23/23 08:48 Prednisone 20 Mg Tab PO 40 mg DAILY DARRIAN Administration Pyridostigmine [place] 120 mg 05/21/23 08:30 05/23/23 14:21 Pyridostigmine 60 Mg Tab PO Not Given TID DARRIAN Sitagliptin Phosphate 100 mg 05/20/23 21:55 05/22/23 20:13 Sitagliptin 100 Mg Tab PO 100 mg QPM DARRIAN Administration Sodium Chloride 0 ml 05/21/23 03:53 05/22/23 09:23 Normal Saline Flush 10 Ml Syr IVP 30 ml PRN PRN Administration Tamsulosin HCl 0.4 mg 05/20/23 23:45 05/23/23 08:47 Tamsulosin 0.4 Mg Capcr PO 0.4 mg BID DARRIAN Administration Triamcinolone Acetonide 0 gm 05/20/23 20:54 Triamcinolone 0.1% Cr 15 Gm Tube TP BID PRN PRN RASH Allergies Cephalosporins Allergy (Intermediate, Verified 05/20/23 18:11) Skin Rash codeine [Codeine] Allergy (Mild, Unverified 05/17/23 13:40) Nausea hydromorphone HCl [From Dilaudid] Allergy (Mild, Verified 05/20/23 18:11) Sulfa (Sulfonamide Antibiotics) Allergy (Mild, Verified 05/20/23 18:11) Skin Rash Exam Narrative Exam Narrative: No exam as he wants to enter hospice. Results Last Vital Signs Temp 96.3 F L 05/23/23 07:17 Pulse 82 05/23/23 07:17 Resp 17 05/22/23 13:45 BP 117/69 05/23/23 07:17 Pulse Ox 95 05/23/23 07:17 Labs 05/23/23 06:26 05/23/23 06:26 Labs: Laboratory Results - last 24 hr 05/22/23 05/22/23 05/22/23 16:43 16:50 16:50 WBC RBC Hgb Hct MCV MCH MCHC RDW Plt Count MPV Immature Gran % Neutrophils % Lymphocytes % Monocytes % Eosinophils % Basophils % Nucleated RBC % Absolute Neutrophils Absolute Lymphocytes Absolute Monocytes Absolute Eosinophils Absolute Basophils RBC Morphology VBG pH 7.43 H VBG pCO2 33 L VBG pO2 50 VBG HCO3 22 L VBG Total CO2 20 L VBG O2 Saturation 87 VBG Base Excess -2 Sodium 133 L Potassium 4.1 Chloride 104 Carbon Dioxide 21.9 Anion Gap 7.1 BUN 19 H Creatinine 1.1 Est GFR (CKD-EPI 2020) 67.02 Glucose Cancelled 391 H Calcium 7.8 L Magnesium 05/23/23 05/23/23 06:26 06:26 WBC 5.96 RBC 3.79 L Hgb 12.1 L Hct 35.7 L MCV 94 MCH 31.9 MCHC 33.9 RDW 15.6 H Plt Count 98 L MPV 10.6 Immature Gran % 0.5 Neutrophils % 78.7 Lymphocytes % 13.9 Monocytes % 6.4 Eosinophils % 0.3 Basophils % 0.2 Nucleated RBC % 0.0 Absolute Neutrophils 4.69 Absolute Lymphocytes 0.83 L Absolute Monocytes 0.38 Absolute Eosinophils 0.02 Absolute Basophils 0.01 RBC Morphology Normal VBG pH VBG pCO2 VBG pO2 VBG HCO3 VBG Total CO2 VBG O2 Saturation VBG Base Excess Sodium 141 Potassium 3.0 L D Chloride 108 H Carbon Dioxide 24.4 Anion Gap 8.6 BUN 15 Creatinine 0.8 Est GFR (CKD-EPI 2020) 88.36 Glucose 57 L Calcium 7.8 L Magnesium 1.6 L
== END 2023-05-23 15:26 | disposition hospice, home (50) | DRG 57 ==
LOC: ER 19:44 → ICU 20:30 → MS 05-21 18:28
PROVIDERS: Internal Medicine; Admitting Provider Internal Medicine; Emergency Provider Nurse Practitioner Acute Care; PCP Family Medicine; Visit Provider Internal Medicine
DX: G70.00 Myasthenia gravis without (acute) exacerbation (principal); C22.0 Liver cell carcinoma; C79.9 Secondary malignant neoplasm of unspecified site; E86.0 Dehydration; R11.10 Vomiting, unspecified; H02.401 Unspecified ptosis of right eyelid; E11.9 Type 2 diabetes mellitus without complications; M21.371 Foot drop, right foot; I48.91 Unspecified atrial fibrillation; I10 Essential (primary) hypertension; E78.5 Hyperlipidemia, unspecified; E03.9 Hypothyroidism, unspecified; G47.33 Obstructive sleep apnea (adult) (pediatric); K21.9 Gastro-esophageal reflux disease without esophagitis; C67.9 Malignant neoplasm of bladder, unspecified; N20.0 Calculus of kidney; R53.1 Weakness; Z79.4 Long term (current) use of insulin; Z87.891 Personal history of nicotine dependence; Z66 Do not resuscitate
CPT/HCPCS: 36415; 80048; 80053; 82805; 82947; 92610; 93005; 99221; 99285; 71045; 83735; 85025; 86140; 93010; 94667; 94668; 99223; 99232; 99233; 99239; J1459; J1644; J3480; J3490; J7512; J7517

== ENCOUNTER → 2023-05-23 13:54 | Outpatient (BNVA) | payer MEDICARE, OTHER, SELFPAY | PROVIDERS: PCP Family Medicine; Referring Provider Family Medicine; Visit Provider Psychiatry & Neurology Neurology ==

== ENCOUNTER 2023-05-25 12:28 | Outpatient (CLI) | payer MEDICARE, OTHER, SELFPAY ==
[2023-05-25 10:33] LABS: Abs Immature Grans 0.02 10^3/uL (0.0-0.06); Absolute Basophil Count 0.01 10^3/uL (0.0-0.2); Absolute Eosinophil Count 0.08 10^3/uL (0.0-0.7); Absolute Monocyte Count 0.36 10^3/uL (0.1-0.8); Absolute Neutrophil Count 3.41 10^3/uL (1.2-6.7); Basophils % 0.2; Eosinophils % 1.6; HCT 40.3 % (40.0-50.0); HGB 13.6 g/dL (13.5-17.5); Immature Grans % 0.4; Lymphocytes % 20.5; MCH 32.2 pg (27.0-33.0); MCHC 33.7 % (32.0-36.0); MCV 95 fL (80-95); MPV 10.1 fL (8.0-11.0); Monocytes % 7.4; Neutrophils % 69.9; Platelet Count 109 10^3/uL (130-400); RBC 4.23 10^6/uL (4.36-5.78); RDW-SD 56.2 fL; WBC 4.88 10^3/uL (4.4-10.8)
[2023-05-25 10:48] LABS: ALT 125 U/L (16-63); AST 78 U/L (15-37); Alkaline Phosphatase 347 U/L (46-116); Anion Gap 7.4 mmol/L (3-11); BUN 15 mg/dL (7-18); Bilirubin, Total 0.9 mg/dL (0.2-1.0); CO2 27.6 mmol/L (21.0-32.0); CREATININE 1.1 mg/dL (0.70-1.30); Calcium 8.2 mg/dL (8.5-10.1); Chloride 108 mmol/L (98-107); Estimated GFR 67.02 (mL/min/1.73m2); Glucose 264 mg/dL (74-106); Potassium 3.6 mmol/L (3.5-5.1); Sodium 143 mmol/L (136-145); Total Protein 6.7 g/dL (6.4-8.2)
== END 2023-05-25 12:29 | disposition home or self-care (01) ==
LOC: LBO 12:28
PROVIDERS: PCP Family Medicine; Visit Provider Internal Medicine Hematology & Oncology
DX: C22.0 Liver cell carcinoma (principal)
CPT/HCPCS: 36415; 80053; 82105; 84439; 84443; 85025

== ENCOUNTER 2023-06-01 01:35 | Outpatient (RCR) | payer MEDICARE, OTHER, SELFPAY ==
[2023-05-31] MEDS: IMMUNE GLOBULIN 10 GM/100 ML BTL IVPB (09:22)
[2023-05-31] MEDS: Normal Saline Flush 10 ML SYR IVP (09:23)
[2023-05-31 09:25] VITALS: BP 114/67; PULSE 59; RESP 18; TEMP 36.2; O2SAT 95
[2023-05-31 09:42] VITALS: BP 115/60; PULSE 80; RESP 18; TEMP 36.3; O2SAT 100
[2023-05-31 09:57] VITALS: BP 123/74; PULSE 67; RESP 17; TEMP 36.3; O2SAT 96
[2023-05-31] MEDS: IMMUNE GLOBULIN 20 GM/200 ML BTL IVPB (10:25)
[2023-05-31 10:27] VITALS: BP 121/68; PULSE 52; RESP 17; TEMP 36.3; O2SAT 99
[2023-05-31 10:57] VITALS: BP 126/78; PULSE 77; RESP 17; TEMP 36.2; O2SAT 94
[2023-06-01] MEDS: Normal Saline Flush 10 ML SYR IVP (08:51)
[2023-06-01] MEDS: IMMUNE GLOBULIN 20 GM/200 ML BTL IVPB (08:51)
[2023-06-01 08:52] VITALS: BP 120/85; PULSE 78; RESP 18; TEMP 36; O2SAT 96
[2023-06-01 09:07] VITALS: BP 111/72; PULSE 60; RESP 18; TEMP 36.5; O2SAT 96
[2023-06-01 09:24] VITALS: BP 117/72; PULSE 68; RESP 18; TEMP 36.4; O2SAT 96
[2023-06-01 09:54] VITALS: BP 109/70; PULSE 57; RESP 16; TEMP 35.8; O2SAT 94
[2023-06-01] MEDS: IMMUNE GLOBULIN 10 GM/100 ML BTL 2.34 GM IVPB (10:11)
[2023-06-01 10:23] VITALS: BP 120/67; PULSE 70; RESP 18; TEMP 36.6; O2SAT 96
[2023-06-01 10:41] VITALS: BP 124/74; PULSE 77; RESP 18; TEMP 36.5; O2SAT 96
== END 2023-06-04 23:59 | disposition home or self-care (01) ==
LOC: INF 01:35
PROVIDERS: PCP Family Medicine; Visit Provider Psychiatry & Neurology Neurology
DX: G70.00 Myasthenia gravis without (acute) exacerbation (principal)
CPT/HCPCS: 96365; 96366; J1459